=== PATIENT | female | born 1955 | race Caucasian/White ===

== ENCOUNTER 2017-03-27 11:45 | Inpatient (IN) ==
[2017-03-27] MEDS ORDERED: DILTIAZEM 25 MG/5 ML VIAL IV ONE ×2 (11:49→11:56)
[2017-03-27] MEDS ORDERED: DILTIAZEM 125 MG/25 ML VIAL IV ONE (11:56)
[2017-03-27] MEDS ORDERED: DILTIAZEM 125 MG in 0.9 % SODIUM CHLORIDE 100 ML IV SCH (12:00)
[2017-03-27] MEDS ORDERED: ASPIRIN 81 MG TAB.CHEW CHEWED ONE (12:02)
--- NOTE | 2017-03-27 12:16 | Emergency Department Note ---
Chest Pain HPI - General Source: patient Mode of arrival: ambulatory Limitations: no limitations - History of Present Illness MD complaint: chest pain Onset (ago): hour(s) Duration: constant Onset: during rest, during exertion Pain Location: substernal Severity: moderate, severe Severity scale (1-10): 8 Quality: tightness Pain Radiation: jaw/teeth Improves with: nothing Worsens with: nothing Associated symptoms: Denies: fever, leg swelling <Trevon Karimi - Last Filed: 03/27/17 12:10> <Nura Chatterjee - Last Filed: 03/27/17 19:24> - General Chief Complaint: Chest Pain Stated Complaint: Chest pain, shortness of breath Time Seen by Provider: 03/27/17 11:48 - History of Present Illness HPI Narrative: This is a 62 year old female that is coming into the ER coming in for chest pain today which started at about 10, constant, sharp.. Described it as 8-9/10 sharp, constant upon initial visit. Patient had just finish dialysis and was urged to come into the ER by the staff. States felt crappy and just not well, somewhat short of breath, but mostly sharp chest pain. Describes sharp pain radiating to jaw and teeth. denies any headache or loss of vision at this time. Known history includes hypertension which she is being treated with blood pressure medication, carvedilol and diltiazam. Past history also includes a hx of pericarditis. PCP is Jazmyn Lindsay. Denies any known history of CHF, CAD, or chronic hear disease, diabetes. Does have kidney failure. Recent surgery within the last year includes a surgery to repair a fistula she had back in September. Other pertinent hx does include a previous lobectomy and completed tx regimen with Dr. Barton. (Trevon Karimi) - Related Data Home Medications Medication Instructions Recorded Confirmed oxycodone 5 mg tablet 20 mg PO Q4H PRN 03/22/16 03/27/17 Previous Rx's Medication Instructions Recorded diltiazem CD 180 mg 180 mg PO BID #180 cap 06/19/16 capsule,extended release 24 hr carvedilol 6.25 mg tablet 6.25 mg PO BID 90 Days #180 tab 08/09/16 torsemide 20 mg tablet 40 mg PO QDAY #60 tab 09/06/16 calcium acetate 667 mg capsule 2,001 mg PO TID 30 Days #270 cap 10/17/16 lidocaine-prilocaine 2.5 %-2.5 % 1 g TOPICAL ONCE #30 g 03/01/17 topical cream vitamin B complex with C-folic 1 tab PO QDAY #90 tab 03/02/17 acid 0.8 mg-zinc citrate 15 mg tablet gabapentin 100 mg capsule 100 mg PO QHS #30 cap 03/27/17 Allergies Allergy/AdvReac Type Severity Reaction Status Date / Time HANH Inhibitors Allergy Unknown dry Verified 03/27/17 11:52 nostrils, throat tickle latex Allergy Unknown unknown Verified 03/27/17 11:52 Sulfa (Sulfonamide Allergy Unknown unknown Verified 03/27/17 11:52 Antibiotics) Chest Pain PMH - Social History smoking status: Former smoker <Trevon Karimi - Last Filed: 03/27/17 12:10> Physical Exam - General Limitations: no limitations General appearance: alert, anxious, in distress - Head Head exam: atraumatic, normocephalic - Eye Eye exam: Present: normal appearance, PERRL, EOMI - Chest Chest inspection: Present: normal inspection, symmetric chest wall rise - Respiratory Respiratory exam: Present: normal lung sounds bilaterally, respiratory distress , other (noticeable tachypnea) - Cardiovascular Cardiovascular exam: Present: irregular rhythm, other (tachycardia consistent with a-fib) <Trevon Karimi - Last Filed: 03/27/17 12:10> Course <Trevon Karimi - Last Filed: 03/27/17 12:10> <Nura Chatterjee - Last Filed: 03/27/17 19:24> - Reevaluation(s) Reevaluation #1: Patient's heart rate slightly improved with diltiazem drip and IV bolus. At this point her pain is improving, we will monitor and check cardiac enzymes, discussed and seen with our medical student. (Nura Chatterjee) Reevaluation #2: Patient's EKG reverted back to normal. She was pain-free. I recommended hospitalization. Our hospital doctor wanted to get another troponin. We will transfer at this point as she does need to see a quality internship and does not and not need to spend another 4 hours in the emergency department. (Nura Chatterjee) Vital Signs Temperature 99.5 F H 03/27/17 11:46 Pulse Rate 149 H 03/27/17 11:46 Respiratory Rate 18 03/27/17 11:46 Blood Pressure 177/86 03/27/17 11:46 Pulse Oximetry (%) 99 03/27/17 11:46 Temperature 99.5 F H 03/27/17 11:46 Pulse Rate 74 03/27/17 18:46 Respiratory Rate 22 03/27/17 18:46 Blood Pressure 150/56 03/27/17 18:46 Pulse Oximetry (%) 99 03/27/17 18:46 Chest Pain <Trevon Karimi - Last Filed: 03/27/17 12:10> - Lab Data Result diagrams: 03/27/17 12:18 03/27/17 12:18 <Nura Chatterjee - Last Filed: 03/27/17 19:24> - MDM Narrative Medical decision making narrative: troponin remained negative2. She converted to normal sinus rh Will be watched in the hospital, monitored bed. Final diagnosis is atrial fibrill with RVR (Nura Chatterjee) - Lab Data Lab Results 03/27/17 03/27/17 03/27/17 Range/Units 12:18 12:18 12:18 WBC 12.7 H (4.5-11.0) K/mcL RBC 2.56 L (4.00-5.20) M/mcL Hgb 8.7 L (12.0-15.0) g/dL Hct 25.1 L (36.0-48.0) % MCV 98.1 (80.0-100.0) fL MCH 33.9 (26.0-34.0) pg MCHC 34.5 (31.0-36.0) g/dL RDW 18.5 H (11.5-14.5) % Plt Count 411 (140-440) K/mcL MPV 7.1 L (7.4-10.4) fL Gran % 73.9 (38.0-78.0) % Lymph % (Auto) 16.5 (15.5-49.0) % [place] % (Auto) 6.6 (1.0-12.0) % Eos % (Auto) 2.7 (0.0-7.0) % Baso % (Auto) 0.3 (0.0-2.0) % Gran # 9.4 H (1.8-8.0) K/mcL Lymph # (Auto) 2.1 (1.5-4.8) K/mcL [place] # (Auto) 0.8 (0.1-0.9) K/mcL Eos # (Auto) 0.3 (0.0-0.7) K/mcL Baso # (Auto) 0 (0.0-0.3) K/mcL Sodium 137 (133-145) mmol/L Potassium 3.3 (3.3-5.1) mmol/L Chloride 91 L (96-108) mmol/L Carbon Dioxide 32 H (22-30) mmol/L Anion Gap 14.0 (8-16) BUN 28 H (8-23) mg/dl Creatinine 3.1 H (0.6-1.1) mg/dl GFR Calculation 15 Glucose 115 H (70-105) mg/dL Calcium 9.4 (8.6-10.4) mg/dl Total Bilirubin 0.5 (0.0-1.0) mg/dL AST 78 H (0-37) U/l ALT 122 H (0-40) U/l Alkaline Phosphatase 157 H (39-117) U/L Total Creatine Kinase 38 (24-170) IU/L CK-MB (CK-2) < 1.0 (0-2.9) ng/ml Troponin T 0.02 (0-0.03) ng/ml NT-Pro-B Natriuret Pep 2916.0 H (0-125) pg/ml Total Protein 7.7 (5.9-8.4) gm/dL Albumin 4.0 (3.2-5.2) gm/dL Globulin 3.7 (2.2-3.7) gm/dL Albumin/Globulin Ratio 1.1 (1.0-2.3) 03/27/17 03/27/17 Range/Units 15:29 18:06 WBC (4.5-11.0) K/mcL RBC (4.00-5.20) M/mcL Hgb (12.0-15.0) g/dL Hct (36.0-48.0) % MCV (80.0-100.0) fL MCH (26.0-34.0) pg MCHC (31.0-36.0) g/dL RDW (11.5-14.5) % Plt Count (140-440) K/mcL MPV (7.4-10.4) fL Gran % (38.0-78.0) % Lymph % (Auto) (15.5-49.0) % [place] % (Auto) (1.0-12.0) % Eos % (Auto) (0.0-7.0) % Baso % (Auto) (0.0-2.0) % Gran # (1.8-8.0) K/mcL Lymph # (Auto) (1.5-4.8) K/mcL [place] # (Auto) (0.1-0.9) K/mcL Eos # (Auto) (0.0-0.7) K/mcL Baso # (Auto) (0.0-0.3) K/mcL Sodium (133-145) mmol/L Potassium (3.3-5.1) mmol/L Chloride (96-108) mmol/L Carbon Dioxide (22-30) mmol/L Anion Gap (8-16) BUN (8-23) mg/dl Creatinine (0.6-1.1) mg/dl GFR Calculation Glucose (70-105) mg/dL Calcium (8.6-10.4) mg/dl Total Bilirubin (0.0-1.0) mg/dL AST (0-37) U/l ALT (0-40) U/l Alkaline Phosphatase (39-117) U/L Total Creatine Kinase (24-170) IU/L CK-MB (CK-2) (0-2.9) ng/ml Troponin T 0.02 0.02 (0-0.03) ng/ml NT-Pro-B Natriuret Pep (0-125) pg/ml Total Protein (5.9-8.4) gm/dL Albumin (3.2-5.2) gm/dL Globulin (2.2-3.7) gm/dL Albumin/Globulin Ratio (1.0-2.3) Disposition Pt seen by SCRAP SHEAR OPERATOR/PA only: No <Trevon Karimi - Last Filed: 03/27/17 12:10> Pt seen by SCRAP SHEAR OPERATOR/PA only: No <Nura Chatterjee - Last Filed: 03/27/17 19:24> Clinical Impression: A-fib Qualifiers: Atrial fibrillation type: unspecified Qualified Code(s): I48.91 - Unspecified atrial fibrillation Summary: 1.) Patient is a 62 year old female. EKG findings and clinical presentation are consistent with Atrial fibrillation. Likely transient in nature due to the given nature she has no known medical history of chronic atrial fibrilation, chronic heart disease, CAD, or hear failure. A.) B.) Order LR fluid C.) Order Diltiazam now. Atrium is depolarized by calcium so we will give diltiazem injection through IV port and than place her on a Diltiazam drip until her heart rhythm stabilizes and returns to normal. D.) Order CBC R/O any underlying infection. E.) Order CMP F.) Order Troponin to r/o MD G.) Order echocardiogram. H.) Order BNP to r/o Heart Failure I.) Order Morphine IV for pain control. I.) Before leaving repeat EKG. Patient now describes sharp pain as 6/10. Will monitor carefully. J.) Not suspecting a PE or DVT so at this present moment will not consider a CTangiongram, D dimer, or doppler U/S however if there are any changes with a drop in O2 saturation and increased respiratory distress will follow up as appropriate. 2.) Hypertension A.) Will monitor carefully here while she is in he ER but will need to follow with PCP. First so that she receives info of her ER visit today and second to continue coordination of care. 3.) Kidney failure A.) Continue going to dialysis per advisement of her PCP and coordinating specialist. (Trevon Karimi) Disposition: Xfer As Outpt/Obs ([facility]) Condition: Fair Referrals: Jazmyn Lindsay MD [Primary Care Provider] -
[2017-03-27 12:39] LABS: Basophils # (Auto) 0 K/mcL (0.0-0.3); Basophils % (Auto) 0.3 % (0.0-2.0); Eosinophils # (Auto) 0.3 K/mcL (0.0-0.7); Eosinophils % (Auto) 2.7 % (0.0-7.0); Granulocytes % (Auto) 73.9 % (38.0-78.0); Lymphocytes # (Auto) 2.1 K/mcL (1.5-4.8); Lymphocytes % (Auto) 16.5 % (15.5-49.0); Mean Cell Volume 98.1 fL (80.0-100.0); Mean Corpuscular HGB Conc 34.5 g/dL (31.0-36.0); Mean Corpuscular Hemoglobin 33.9 pg (26.0-34.0); Monocytes # (Auto) 0.8 K/mcL (0.1-0.9); Monocytes % (Auto) 6.6 % (1.0-12.0); Platelet Count 411 K/mcL (140-440); RBC 2.56 M/mcL (4.00-5.20); Red Cell Distribution Width 18.5 % (11.5-14.5)
--- NOTE | 2017-03-27 12:58 | XRay Report ---
HISTORY: Reason for Exam: Pain across the chest following dialysis with shortness of breath FINDINGS: There is opacification at the right lung base due to a combination of pleural thickening/pleural effusion and atelectasis/scar. This is a chronic finding with no change since 11/09/16. No acute infiltrate has developed. The heart is moderately enlarged and has increased in size since 01-18. The pulmonary vessels are mildly prominent. IMPRESSION: Increasing cardiomegaly with mild pulmonary vascular congestion Interpreted and Authenticated by: Coleman Serraon 03/27/17
[2017-03-27 13:09] LABS: ALT/SGPT 122 U/l (0-40); Albumin/Globulin Ratio 1.1 (1.0-2.3); Alkaline Phosphatase 157 U/L (39-117); Blood Urea Nitrogen 28 mg/dl (8-23); Creatine Kinase 38 IU/L (24-170); Creatine Kinase MB < 1.0 ng/ml (0-2.9)
[2017-03-27] MEDS ORDERED: DIGOXIN 500 MCG/2 ML AMPUL IV ONE ×3 (13:13→14:07)
[2017-03-27] MEDS ORDERED: 0.9 % SODIUM CHLORIDE 1,000 ML IV SCH (13:30)
[2017-03-27] MEDS ORDERED: DILTIAZEM 120 MG CAP.XL.24H PO ONE (15:22)
--- NOTE | 2017-03-27 20:21 | Internal Med History&Physical ---
Medical - H&P: HPI Patient information: Note initiated : 03/27/17 at 8:15 pm Service Date, if different from initiated Date: [] Patient: Stefany Chew a 62 y/o F admitted on for Chest Pain, SOB. Chief Complaint: [] History of present illness: Ms. Chew is a 62 year old Female with h/o esrd, on hd, and htn with multple other issues presents to the ER with complaints of chest pain and palpitations which started at the end of dialysis The patient noted she had moderate chest pain in the upper part of her chest, radiating to both shoulders and jaws, lasted 30 mins, non related to activity, sharp, associated with palpitations, nausea, and some dizziness. She notes that the dailysis nurse noted her to be very tachycardic and was therefore sent to the ER for further evaluation. The patient notse that her chest pain resolved after coming to the ER In the ER she was noted to be tachycardic, and having new onset afib with RVR. The patient was given cardizem and digoxin, and later placed on a cardizem drip to help with rate control The patient returned spontaneously to sinus rhythm later and is off drip during my eval Patient has mildly elevated wbc, hb 8.7, plat 411 she had trop x 3 negative. X ray shwos cardiomegaly and mild pulm congestion EKG afib with rvr on presentation, later showes sinus rhytym, ? q waves, non sp st wave changes in inf and lateral leas, no old ekg to compare The patient given h/o esrd and new onset Afib was admitted to the hospiotal for further management. All systems: reviewed and no additional remarkable complaints except as stated ( as per hpi) Medical - H&P: PMH Medical history: Medical History A-fib (Acute) Osteoarthritis (Chronic) Microscopic hematuria (Chronic) Pericarditis (Chronic) Diverticulitis of colon (Chronic) Cardiac disorder (Chronic) Depression (Chronic) History of blood transfusion (Chronic) Backache (Chronic) Hepatitis B infection (Chronic) Allergic rhinitis (Chronic) Anemia (Chronic) Chronic hepatitis C (Chronic) Hypertension (Chronic) Hyperlipidemia (Chronic) Vitamin D deficiency (Chronic) Leg cramps (Chronic) Acute sinusitis (Chronic) Arthritis (Chronic) Blood loss anemia (Chronic) Cervicalgia (Chronic) Chest pain (Chronic) Chronic obstructive pulmonary disease (Chronic) Acute stress reaction (Chronic) Essential (primary) hypertension (Chronic) 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) Decreased renal function (Chronic) Viral hepatitis C without hepatic coma (Chronic) Lower abdominal pain (Chronic) Nostril infection (Chronic) Pain (Chronic) Pain in right hip (Chronic) Postmenopausal (Chronic) Right lower quadrant pain (Chronic) Sciatica (Chronic) Shortness of breath (Chronic) Skin pustule (Chronic) Symptomatic anemia (Chronic) Thyroid enlargement (Chronic) Tiredness (Chronic) Tubular adenoma of colon (Chronic) Ventral hernia (Chronic) Vertigo (Chronic) Chronic kidney disease, stage 4 (severe) (Chronic) History of proctoscopy (Chronic) Surgical history: Past Surgical History Status post excision of thyroid adenoma (Chronic) History of D&C (Chronic) History of cholecystectomy (Chronic) History of colonoscopy (Chronic) History of cystoscopy (Chronic) History of decompression of median nerve (Chronic) History of fusion of cervical spine (Chronic) History of hysterectomy (Chronic) History of repair of rotator cuff (Chronic) History of thyroidectomy (Chronic) History of tonsillectomy and adenoidectomy (Chronic) Status post biopsy of kidney (Chronic) Family history: reviewed and not pertinent Social history: ex smoke [place] recreational substance use. Medical - H&P: Meds Home Medications Medication Instructions Recorded Confirmed Type oxycodone 5 mg tablet 20 mg PO Q4H PRN 03/22/16 03/27/17 History diltiazem CD 180 mg 180 mg PO BID #180 cap 06/19/16 03/27/17 Rx capsule,extended release 24 hr carvedilol 6.25 mg tablet 6.25 mg PO BID 90 Days #180 tab 08/09/16 03/27/17 Rx torsemide 20 mg tablet 40 mg PO QDAY #60 tab 09/06/16 03/27/17 Rx calcium acetate 667 mg capsule 2,001 mg PO TID 30 Days #270 cap 10/17/16 Rx lidocaine-prilocaine 2.5 %-2.5 % 1 g TOPICAL ONCE #30 g 03/01/17 03/27/17 Rx topical cream vitamin B complex with C-folic 1 tab PO QDAY #90 tab 03/02/17 Rx acid 0.8 mg-zinc citrate 15 mg tablet gabapentin 100 mg capsule 100 mg PO QHS #30 cap 03/27/17 03/27/17 Rx Allergies Allergy/AdvReac Type Severity Reaction Status Date / Time HANH Inhibitors Allergy Unknown dry Verified 03/27/17 11:52 nostrils, throat tickle latex Allergy Unknown unknown Verified 03/27/17 11:52 Sulfa (Sulfonamide Allergy Unknown unknown Verified 03/27/17 11:52 Antibiotics) Medical - H&P: Exam - Constitutional Vitals: Temp Pulse Resp BP Pulse Ox 99.5 F H 80 15 154/61 98 03/27/17 11:46 03/27/17 19:46 03/27/17 19:46 03/27/17 19:46 03/27/17 19:46 Exam: GENERAL: The patient is a well-developed, well-nourished in no apparent distress. Is alert and oriented x3. VITAL SIGNS: Reviewed and as noted elsewhere. HEENT: Head is normocephalic and atraumatic. Extraocular muscles are intact. Pupils are equal, round, and reactive to light. Nares appeared normal. Mouth appears any without lesions. Mucous membranes are moist. NECK: Normal to inspection, Supple, No lymphadenopathy or thyromegaly. LUNGS: Air entry equal on both sides, no wheezing, crackles or rhonchi noted. No accessory muscles of respiration HEART: Regular rate and rhythm normal, S1 and S2 heard, no Gallop, S3 or Rub Noted, No Gross murmur heard. ABDOMEN: Soft, nontender, and nondistended. Positive bowel sounds. No hepatosplenomegaly was noted. EXTREMITIES: No cyanosis, clubbing, rash, lesions or edema. NEUROLOGIC: Cranial nerves II through XII are grossly intact. Motor and Sensory System Grossly Intact PSYCHIATRIC: Normal affect, Normal Mood. Appropriate Behavior. SKIN: No ulceration or wounds noted, No jaundice, No rash noted. Medical - H&P: Reslt - Labs CBC & Chem 7: 03/27/17 12:18 03/27/17 12:18 Labs: Short CBC 03/27/17 Range/Units 12:18 WBC 12.7 H (4.5-11.0) K/mcL Hgb 8.7 L (12.0-15.0) g/dL Hct 25.1 L (36.0-48.0) % Plt Count 411 (140-440) K/mcL BMP 03/27/17 12:18 Sodium 137 Potassium 3.3 Chloride 91 L Carbon Dioxide 32 H BUN 28 H Creatinine 3.1 H Glucose 115 H Calcium 9.4 Cardiac Enzymes 03/27/17 03/27/17 03/27/17 Range/Units 12:18 12:18 15:29 Total Creatine Kinase 38 (24-170) IU/L CK-MB (CK-2) < 1.0 (0-2.9) ng/ml Troponin T 0.02 0.02 (0-0.03) ng/ml 03/27/17 Range/Units 18:06 Total Creatine Kinase (24-170) IU/L CK-MB (CK-2) (0-2.9) ng/ml Troponin T 0.02 (0-0.03) ng/ml Liver Function 03/27/17 Range/Units 12:18 Total Bilirubin 0.5 (0.0-1.0) mg/dL AST 78 H (0-37) U/l ALT 122 H (0-40) U/l Alkaline Phosphatase 157 H (39-117) U/L Albumin 4.0 (3.2-5.2) gm/dL Medical - H&P: A/P - Narrative A/P Narrative: A/P Afib with RVR, ESRd HTN h/o thyroid issues Chr pain issue leucocytosis Plan Admit to tele Check ua to r/o UTI check tsh, INR patient notes she has had 3 such episodes int he past, her CHADSVASC2 score is 2 , she will benefit from coumadin therapy discussed risk benefits of coumadin treatment. including risk of bleeding in brain and stomach and ,patient and her son agreed to treatment. Discussed need for coumadin given that newer drugs like eliquis do not yet have good data on safety in ESRD patients. monitor hb for now for rate control dora is already on a dilatazem as well as coreg, seems she has h/o SVT in the past and has followed up by cardiology Will increase the dose of coreg from 6.25 mg bid to 12.5mg bid, she will continue on cardizem 180mg bid. get echo DVT hep sq Diet renal Full code Anticpate D/c in AM if remains stable with close follow up with PCP.
[2017-03-27] MEDS ORDERED: WARFARIN 5 MG TABLET PO SCH (21:11)
[2017-03-27] MEDS ORDERED: NALOXONE HCL 0.4 MG/ML VIAL IV PRN (21:11)
[2017-03-27] MEDS ORDERED: MAGNESIUM HYDROXIDE 30 ML ORAL.SUSP PO PRN (21:11)
[2017-03-27] MEDS ORDERED: ONDANSETRON 4 MG/2 ML VIAL IV PRN (21:11)
[2017-03-27] MEDS ORDERED: ACETAMINOPHEN 325 MG TABLET PO PRN (21:11)
[2017-03-27] MEDS ORDERED: HYDROcodone/APAP 5/325MG TABLET PO PRN (21:11)
[2017-03-27] MEDS ORDERED: oxyCODONE HCL 5 MG TABLET PO PRN (21:11)
[2017-03-27] MEDS: GABAPENTIN 100 MG CAPSULE PO SCH (22:18)
[2017-03-27] MEDS: HEPARIN 5,000 UNIT/ML VIAL SQ SCH (22:18)
[2017-03-27] MEDS: DILTIAZEM 180 MG CAP.XL.24H PO SCH (22:18)
[2017-03-27] MEDS: CARVEDILOL 12.5 MG TABLET PO SCH (22:18)
[2017-03-28 05:28] LABS: Basophils # (Auto) 0 K/mcL (0.0-0.3); Basophils % (Auto) 0.5 % (0.0-2.0); Eosinophils # (Auto) 0.2 K/mcL (0.0-0.7); Eosinophils % (Auto) 2.9 % (0.0-7.0); Granulocytes % (Auto) 69.9 % (38.0-78.0); Lymphocytes # (Auto) 0.9 K/mcL (1.5-4.8); Lymphocytes % (Auto) 15.9 % (15.5-49.0); Mean Cell Volume 98.2 fL (80.0-100.0); Mean Corpuscular HGB Conc 34.3 g/dL (31.0-36.0); Mean Corpuscular Hemoglobin 33.7 pg (26.0-34.0); Monocytes # (Auto) 0.6 K/mcL (0.1-0.9); Monocytes % (Auto) 10.8 % (1.0-12.0); Platelet Count 303 K/mcL (140-440); RBC 1.98 M/mcL (4.00-5.20); Red Cell Distribution Width 18.4 % (11.5-14.5)
[2017-03-28 05:47] LABS: ALT/SGPT 218 U/l (0-40); Albumin 3.1 gm/dL (3.2-5.2); Alkaline Phosphatase 365 U/L (39-117); Bilirubin,Direct < 0.2 mg/dL (0.0-0.3); Blood Urea Nitrogen 46 mg/dl (8-23); Gamma Glutamyl Transpeptidase 198 U/L (5-36); Uric Acid 3.9 mg/dL (2.5-8.0)
[2017-03-28] MEDS: HEPARIN 5,000 UNIT/ML VIAL SQ SCH ×3 (05:50→21:06)
[2017-03-28] MEDS ORDERED: 0.9 % SODIUM CHLORIDE 250 ML IV SCH ×2 (06:15→07:30)
--- NOTE | 2017-03-28 08:15 | Ultrasound Report ---
History: Elevated liver enzymes Findings: The liver is normal in size and homogeneous. The gallbladder surgically absent. The extrahepatic bile ducts are severely dilated. The distal common hepatic duct measures up to 2 cm. It measured 1.5 cm on 11/29/16. There is no apparent mass or stone in the distal common bile duct. Intrahepatic ducts are borderline dilated. The visualized portions of the pancreas appear normal without evidence of a mass or inflammation. The pancreatic duct is nondistended. Small right-sided pleural effusion is present. This is a chronic stable finding. Impression: Increasing dilatation of the extrahepatic bile ducts. There may be a stricture at the ampulla. This could be further evaluated by ERCP. Interpreted and Authenticated by: Coleman Serrano 03/28/17
[2017-03-28] MEDS: TORSEMIDE 10 MG TABLET PO SCH (08:17)
[2017-03-28] MEDS: DILTIAZEM 180 MG CAP.XL.24H PO SCH ×2 (08:17→21:06)
[2017-03-28] MEDS: CARVEDILOL 12.5 MG TABLET PO SCH ×2 (08:18→21:06)
[2017-03-28] MEDS ORDERED: PNEUMOCOCCAL 23-VAL P-SAC VAC 0.5 ML VIAL IM ONE (10:00)
[2017-03-28 11:03] LABS: Iron 50 mcg/dl (37-145); Transferrin % Saturation 31 % (15-50); Unsaturated Iron Binding 107 mcg/dL (112-346)
[2017-03-28 11:04] LABS: Vitamin B12 1006 pg/ml (243-894)
[2017-03-28 11:04] LABS: Appearance,Urine CLEAR; Bacteria,Urine 0 /hpf (0); Bilirubin,Urine NEG (NEG); Color,Urine YELLOW; Glucose,Urine (UA) NEGATIVE (NEG); Leukocyte Esterase,Urine NEG /uL (NEG); Nitrate,Urine NEG (NEG); Protein,Urine 100 mg/dL (NEG); Specific Gravity,Urine 1.008 (1.000-1.035); Urine Blood 0.2 mg/dL (<0.03); Urine RBC 3 /hpf (0-1); Urine Squamous Epithelial Cell < 1 /hpf (0-4); Urine WBC 3 /hpf (0-4); Urobilinogen,Urine NEG (NEG)
--- NOTE | 2017-03-28 16:38 | Nephrology Consult Note ---
History of Present Illness - Reason for Consult Patient information: Note initiated : 03/28/17 at 4:36 pm Service Date, if different from initiated Date: [] Patient: Stefany Chew a 62 y/o F admitted on 03/27/17 for Chest Pain, SOB/AFib with RVR. Chief Complaint: [] Consult date: 03/27/17 end stage renal disease Requesting physician: Nura Chatterjee - Chief Complaint palpitations - History of Present Illness Ms Jeevan is my dialysis patient she was sent yesterday after dialysis for palpitations and abnormal heart rhythm she was noted to have new onset Afib and she is been hospitalised for the same, IL ruled out with negative troponin She is noted to have severe anemia (she cannot get aranesp given h/o non small cell lung cancer as recommended by oncology). She also has abnormal liver enzymes and mild fever and this is been addressed she denies SOB, CP, has persistent left shoulder pain radiating to jaw no LE edema no nausea, vomiting anxious to go home Review of Systems All systems PM: reviewed and no additional remarkable complaints except as stated (as in HPI) Past History Past medical history: ESRD on HD anemia of chronic disease renal osteodystrophy Hep c s/p treatment lung cancer s/p lobectomy and chemotherapy h/o papillary stricture s?p recent E bus Hypertension Past surgical history: h/o lobectomy for lung cancer this year h/o AVF surgery had TCC which has been removed Past family history: not pertinent Past social history: lives alone, daughter lives in town no current addictions Medications and Allergies Home Medications Medication Instructions Recorded Confirmed Type oxycodone 5 mg tablet 20 mg PO Q4H PRN 03/22/16 03/27/17 History diltiazem CD 180 mg 180 mg PO BID #180 cap 06/19/16 03/27/17 Rx capsule,extended release 24 hr carvedilol 6.25 mg tablet 6.25 mg PO BID 90 Days #180 tab 08/09/16 03/27/17 Rx torsemide 20 mg tablet 40 mg PO QDAY #60 tab 09/06/16 03/27/17 Rx calcium acetate 667 mg capsule 2,001 mg PO TID 30 Days #270 cap 10/17/16 Rx lidocaine-prilocaine 2.5 %-2.5 % 1 g TOPICAL ONCE #30 g 03/01/17 03/27/17 Rx topical cream vitamin B complex with C-folic 1 tab PO QDAY #90 tab 03/02/17 Rx acid 0.8 mg-zinc citrate 15 mg tablet gabapentin 100 mg capsule 100 mg PO QHS #30 cap 03/27/17 03/27/17 Rx Allergies Allergy/AdvReac Type Severity Reaction Status Date / Time HANH Inhibitors Allergy Unknown dry Verified 03/27/17 11:52 nostrils, throat tickle latex Allergy Unknown unknown Verified 03/27/17 11:52 Sulfa (Sulfonamide Allergy Unknown unknown Verified 03/27/17 11:52 Antibiotics) Exam - Vital Signs Vital signs: Temp Pulse Resp BP Pulse Ox 98.1 F 69 20 138/51 97 03/28/17 12:00 03/28/17 12:00 03/28/17 12:00 03/28/17 12:00 03/28/17 12:00 - General Appearance General appearance: appears started age, obese EENT: mucous membranes moist Neck: no JVD Respiratory: clear Cardiology: no rub, no edema, normal S1, normal S2 Gastrointestinal: no tenderness, no guarding Integumentary: warm and dry Neurologic: no asterixis, alert and oriented x3 Musculoskeletal: no erythema, no cyanosis Psychiatric: mood/affect appropriate Results - Lab Results 03/28/17 06:12 03/28/17 03:44 Most recent lab results Calcium 8.5 mg/dl (8.6-10.4) L 03/28/17 03:44 Phosphorus 5.1 mg/dL (2.7-4.5) H 03/28/17 03:44 Magnesium 2.0 mg/dL (1.6-2.5) 03/28/17 03:44 Assessment and Plan (1) ESRD (end stage renal disease) on dialysis Patient planned to get 2 units of prbc transfusion today will dialyse to prevent volume overload and hyperkalemia given her CXR findings will hold off on HD tomorrow unless needed HD today for 3.5 hrs using 2k/2.5ca dialysate and UF goal of 1.5-2L as tolerated next HD on sat unless needed/indicated please dose meds to HD HTN: controlled will ct home meds Anemia prbc transfusion today work up done, no iron deficiency or b12 deficiency abnormal liver enzymes: been monitored and managed by hospitalist, discussed with GI in [place], recommendation was to transfer for ercp if liver enzymes continue to worsen, discussed witht he pt new onset Afib, echo result pending will need anticoagulation Appreciate hospitalist help in managing this patient Status: Acute (2) Anemia Status: Chronic
--- NOTE | 2017-03-28 17:51 | Internal Med Progress Note ---
Medical - PN: Subj Patient information: Note initiated : 03/28/17 at 5:47 pm Service Date, if different from initiated Date: [] Patient: Stefany Chew a 62 y/o F admitted on 03/27/17 for Chest Pain, SOB/AFib with RVR. Chief Complaint: [] Interval history: Ms. Chew is a 62 year old Female with h/o esrd, on hd, and htn with multple other issues presents to the ER with complaints of chest pain and palpitations which started at the end of dialysis The patient noted she had moderate chest pain in the upper part of her chest, radiating to both shoulders and jaws, lasted 30 mins, non related to activity, sharp, associated with palpitations, nausea, and some dizziness. She notes that the dailysis nurse noted her to be very tachycardic and was therefore sent to the ER for further evaluation. The patient notse that her chest pain resolved after coming to the ER In the ER she was noted to be tachycardic, and having new onset afib with RVR. The patient was given cardizem and digoxin, and later placed on a cardizem drip to help with rate control The patient returned spontaneously to sinus rhythm later and is off drip during my eval Patient has mildly elevated wbc, hb 8.7, plat 411 she had trop x 3 negative. X ray shwos cardiomegaly and mild pulm congestion EKG afib with rvr on presentation, later showes sinus rhytym, ? q waves, non sp st wave changes in inf and lateral leas, no old ekg to compare The patient given h/o esrd and new onset Afib was admitted to the hospiotal for further management. March 28 Patient seen examined low hb noted,, elevated lft worsened since yesterday noted Patient has no acute complaints UA neg for infection no temp today, but procalcitoni is mildly elevated Patient has no gi symptoms at present Discussed case with Dr Callejas, GI physician in [place], who had performed a recent EGD scopy who advise to follow the patient lft, recent EBS did not show any tumor or lesion. and patient hepatic duct and cbd diameters are much changed since that time. advised to follow clinically and if needed call him again. patient to get 2 units of prbc today, hemodialysis also scheduled for today. Pertinent ROS: Denies headache, dizziness Denies chest pain, palpitations Denies cough or shortness of breath Denies abdominal pain, nausea or vomiting. - Constitutional Vitals: Vital Signs Temp Pulse Resp BP Pulse Ox 98.3 F 61 18 143/59 98 03/28/17 16:52 03/28/17 16:52 03/28/17 16:00 03/28/17 16:52 03/28/17 16:00 Period Temp Pulse Resp BP Sys/Reid Pulse Ox Last 24 Hr 98.1 F-100.4 F 61-111 15-27 118-159/42-71 82-100 Intake and Output 03/28/17 03/28/17 03/28/17 05:59 13:59 21:59 Intake Total 100 / 100 400 / 400 Output Total 300 / 300 Balance 100 / 100 100 / 100 Intake & Output: Intake & Output 03/28/17 03/28/17 03/28/17 05:59 13:59 21:59 Intake Total 100 / 100 400 / 400 Output Total 300 / 300 Balance 100 / 100 100 / 100 Intake: Oral 100 / 100 400 / 400 Output: Void Amount 300 / 300 Other: # Voids 1 Exam: Constitutional; Afebrile, cooperative, alert, not in distress. Eyes- No icterus, , No periorbital swelling Ears- Ext ear normal, hearing normal to conversation. Neck- Midline trachea, supple Respiratory system: Air Entry equal on both sides, No crackles or wheezing, no rhonchi. CVS- Rate rhythm regular, S1,S2 heard, no gallop, no rub. 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 Medical - PN: Obj Da - Labs CBC & Chem 7: 03/28/17 06:12 03/28/17 03:44 Labs: Abnormal Lab Results 03/28/17 03/28/17 03/28/17 06:48 06:12 06:12 WBC RBC Hgb 7.1 L Hct 20.7 L* RDW MPV Gran # Lymph # (Auto) PT INR Chloride Carbon Dioxide BUN Creatinine Glucose Calcium Phosphorus TIBC 157 L Unsat Iron Binding 107 L Ferritin 5974.0 H GGT AST ALT Alkaline Phosphatase Lactate Dehydrogenase NT-Pro-B Natriuret Pep Albumin Vitamin B12 1006 H Urine Protein 100 A Urine Occult Blood 0.2 A Urine RBC 3 H 03/28/17 03/28/17 03/28/17 03:44 03:44 03:44 WBC RBC 1.98 L Hgb 6.7 L* Hct 19.4 L* RDW 18.4 H MPV 7.2 L Gran # Lymph # (Auto) 0.9 L PT 15.1 H INR 1.2 H Chloride 94 L Carbon Dioxide BUN 46 H Creatinine 4.9 H Glucose Calcium 8.5 L Phosphorus 5.1 H TIBC Unsat Iron Binding Ferritin GGT 198 H AST 269 H ALT 218 H Alkaline Phosphatase 365 H Lactate Dehydrogenase 488 H NT-Pro-B Natriuret Pep Albumin 3.1 L Vitamin B12 Urine Protein Urine Occult Blood Urine RBC 03/27/17 03/27/17 12:18 12:18 WBC 12.7 H RBC 2.56 L Hgb 8.7 L Hct 25.1 L RDW 18.5 H MPV 7.1 L Gran # 9.4 H Lymph # (Auto) PT INR Chloride 91 L Carbon Dioxide 32 H BUN 28 H Creatinine 3.1 H Glucose 115 H Calcium Phosphorus TIBC Unsat Iron Binding Ferritin GGT AST 78 H ALT 122 H Alkaline Phosphatase 157 H Lactate Dehydrogenase NT-Pro-B Natriuret Pep 2916.0 H Albumin Vitamin B12 Urine Protein Urine Occult Blood Urine RBC Meds: Medications Acetaminophen (Tylenol) 650 mg PO Q6HP PRN PRN Reason: PAIN/FEVER > 101 Hydrocodone Bitart/Acetaminophen ([place] 5/325mg) 1 tab PO Q4HP PRN PRN Reason: Pain Carvedilol (Coreg) 12.5 mg PO BIDCC [facility] Last Admin: 03/28/17 08:18 Dose: 12.5 mg Diltiazem HCl (Cardizem Cd) 180 mg PO BID [facility] Last Admin: 03/28/17 08:17 Dose: 180 mg Gabapentin (Neurontin) 100 mg PO QHS [facility] Last Admin: 03/27/17 22:18 Dose: 100 mg Heparin Sodium (Porcine) (Heparin) 5,000 unit SQ Q8 [facility] Last Admin: 03/28/17 14:25 Dose: 5,000 unit Sodium Chloride (Sodium Chloride 0.9%) 250 mls @ 20 mls/hr IV .[id number] [facility] Stop: 03/28/17 18:44 Sodium Chloride (Sodium Chloride 0.9%) 250 mls @ 20 mls/hr IV .[id number] [facility] Stop: 03/28/17 19:59 Magnesium Hydroxide (Milk Of Magnesia) 30 ml PO DAILYP PRN PRN Reason: Constipation Naloxone HCl (Narcan) 0.1 mg IV Q2MIN PRN PRN Reason: Opiate Reversal Ondansetron HCl (Zofran) 4 mg IV Q4HP PRN PRN Reason: Nausea And Vomiting Last Admin: 03/28/17 11:40 Dose: 4 mg Oxycodone HCl (Roxicodone) 20 mg PO Q4H PRN PRN Reason: Pain Torsemide (Demadex) 40 mg PO DAILY [facility] Last Admin: 03/28/17 08:17 Dose: 40 mg Medical - PN: A/P - Time Spent With Patient Total time spent is greater than 50% in coordination of care (as documented) at patient's floor/unit and/or counseling patient: - Narrative A/P Narrative: A/P Afib with RVR, ESRd HTN h/o thyroid issues Chr pain issue leucocytosis abnormal LFT anemia of chr disease, associated with esrd Plan monitor on tele, no further episodes of afib with rvr hold coumadin for now given that she may need ercp and pincterectomy neg ua for UTI monitor lvf tsh normal 2 units blood xfusion today, not candidate for epogen due to h/o lung cancer rate well controlled on oral meds. await echo read. DVT hep sq Diet renal Full code Anticpate D/c in AM if remains stable with close follow up with PCP.
[2017-03-28] MEDS: GABAPENTIN 100 MG CAPSULE PO SCH (21:06)
[2017-03-28] MEDS ORDERED: BISACODYL 5 MG TABLET PO PRN (22:21)
[2017-03-28] MEDS ORDERED: BISACODYL 5 MG TABLET PO ONE (23:08)
[2017-03-29] MEDS: HEPARIN 5,000 UNIT/ML VIAL SQ SCH ×3 (05:45→21:12)
[2017-03-29 06:07] LABS: Basophils # (Auto) 0 K/mcL (0.0-0.3); Basophils % (Auto) 0.7 % (0.0-2.0); Eosinophils # (Auto) 0.2 K/mcL (0.0-0.7); Eosinophils % (Auto) 3.9 % (0.0-7.0); Granulocytes % (Auto) 64.9 % (38.0-78.0); Lymphocytes # (Auto) 1.1 K/mcL (1.5-4.8); Lymphocytes % (Auto) 18.9 % (15.5-49.0); Mean Cell Volume 95.2 fL (80.0-100.0); Mean Corpuscular HGB Conc 35.2 g/dL (31.0-36.0); Mean Corpuscular Hemoglobin 33.5 pg (26.0-34.0); Monocytes # (Auto) 0.6 K/mcL (0.1-0.9); Monocytes % (Auto) 11.6 % (1.0-12.0); Platelet Count 337 K/mcL (140-440); Red Cell Distribution Width 18.7 % (11.5-14.5)
[2017-03-29 06:25] LABS: ALT/SGPT 138 U/l (0-40); Albumin 3.2 gm/dL (3.2-5.2); Albumin/Globulin Ratio 0.9 (1.0-2.3); Alkaline Phosphatase 316 U/L (39-117); Bilirubin,Direct < 0.2 mg/dL (0.0-0.3); Blood Urea Nitrogen 23 mg/dl (8-23); Gamma Glutamyl Transpeptidase 176 U/L (5-36); Magnesium 1.9 mg/dL (1.6-2.5); Uric Acid 2.7 mg/dL (2.5-8.0)
[2017-03-29] MEDS: CARVEDILOL 12.5 MG TABLET PO SCH ×2 (08:16→17:08)
--- NOTE | 2017-03-29 08:18 | XRay Report ---
HISTORY: Reason for Exam:shoulder pain FINDINGS: No fracture or dislocation. There is a cluster of small subcortical cysts with thin sclerotic borders along the superior/ lateral border of the humeral head, near the tuberosities. There is also a tiny spur along the top of the greater tuberosity. No other degenerative change is present. There are no abnormal soft tissue calcifications. The joint spaces are normal in width and alignment. Impression: Mild arthritis involving the humeral head Interpreted and Authenticated by: Coleman Serrano 03/29/17
[2017-03-29] MEDS: TORSEMIDE 10 MG TABLET PO SCH (09:01)
[2017-03-29] MEDS: DILTIAZEM 180 MG CAP.XL.24H PO SCH ×2 (09:01→21:12)
[2017-03-29] MEDS ORDERED: PNEUMOCOCCAL 23-VAL P-SAC VAC 0.5 ML VIAL IM ONE (09:45)
[2017-03-29] MEDS ORDERED: WARFARIN 5 MG TABLET PO SCH (14:00)
--- NOTE | 2017-03-29 14:09 | Internal Med Progress Note ---
Medical - PN: Subj Patient information: Note initiated : 03/29/17 at 2:07 pm Service Date, if different from initiated Date: [] Patient: Stefany Chew a 62 y/o F admitted on 03/27/17 for Chest Pain, SOB/AFib with RVR. Chief Complaint: [] Interval history: Ms. Chew is a 62 year old Female with h/o esrd, on hd, and htn with multple other issues presents to the ER with complaints of chest pain and palpitations which started at the end of dialysis The patient noted she had moderate chest pain in the upper part of her chest, radiating to both shoulders and jaws, lasted 30 mins, non related to activity, sharp, associated with palpitations, nausea, and some dizziness. She notes that the dailysis nurse noted her to be very tachycardic and was therefore sent to the ER for further evaluation. The patient notse that her chest pain resolved after coming to the ER In the ER she was noted to be tachycardic, and having new onset afib with RVR. The patient was given cardizem and digoxin, and later placed on a cardizem drip to help with rate control The patient returned spontaneously to sinus rhythm later and is off drip during my eval Patient has mildly elevated wbc, hb 8.7, plat 411 she had trop x 3 negative. X ray shwos cardiomegaly and mild pulm congestion EKG afib with rvr on presentation, later showes sinus rhytym, ? q waves, non sp st wave changes in inf and lateral leas, no old ekg to compare The patient given h/o esrd and new onset Afib was admitted to the hospiotal for further management. March 28 Patient seen examined low hb noted,, elevated lft worsened since yesterday noted Patient has no acute complaints UA neg for infection no temp today, but procalcitonin is mildly elevated Patient has no gi symptoms at present Discussed case with Dr Callejas, GI physician in [place], who had performed a recent EGD scopy who advise to follow the patient lft, recent EBS did not show any tumor or lesion. and patient hepatic duct and cbd diameters are much changed since that time. advised to follow clinically and if needed call him again. patient to get 2 units of prbc today, hemodialysis also scheduled for today. March 28 patient seen examined no acute overnight events some neck pain, going to the jaw but no other symptmos. trop x 2 neg on admission procalcitonin and lft trending down low grade fever noted patient otherwise asymptomatic, given her h/o lung cancer, now worsening lft, ( although better now) the patient will be monitored for 1 more day, to ensure no acute hepatobillary process is ongoing. if lft continue to trend down and patient reamins afebrile with no other issues, consider d/c to home in AM s/p hd yesterday, hb > 9.0 Pertinent ROS: Denies headache, dizziness Denies chest pain, palpitations (upper chest pain, jaw pain noted) Denies cough or shortness of breath Denies abdominal pain, nausea or vomiting. - Constitutional Vitals: Vital Signs Temp Pulse Resp BP Pulse Ox 97.6 F 74 14 130/64 97 03/29/17 12:00 03/29/17 04:00 03/29/17 12:00 03/29/17 12:00 03/29/17 12:00 Period Temp Pulse Resp BP Sys/Reid Pulse Ox Last 24 Hr 97.6 F-99.3 F 61-78 14-18 124-192/54-86 94-98 Intake and Output 03/29/17 03/29/17 03/29/17 05:59 13:59 21:59 Intake Total 425 / 425 Balance 425 / 425 Weight 188 lb 8 oz 188 lb 8 oz Patient Weight 03/30/17 05:59 Weight 188 lb 8 oz Intake & Output: Intake & Output 03/29/17 03/29/17 03/29/17 05:59 13:59 21:59 Intake Total 425 / 425 Balance 425 / 425 Weight 188 lb 8 oz 188 lb 8 oz Intake: Oral 425 / 425 Other: # Voids 1 Exam: Constitutional; Afebrile, cooperative, alert, not in distress. Eyes- No icterus, , No periorbital swelling Ears- Ext ear normal, hearing normal to conversation. Neck- Midline trachea, supple Respiratory system: Air Entry equal on both sides, No crackles or wheezing, no rhonchi. CVS- Rate rhythm regular, S1,S2 heard, no gallop, no rub. 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 Medical - PN: Obj Da - Labs CBC & Chem 7: 03/29/17 04:50 03/29/17 04:50 Labs: Abnormal Lab Results 03/29/17 03/29/17 03/28/17 04:50 04:50 06:48 WBC RBC 2.70 L Hgb 9.1 L Hct 25.7 L RDW 18.7 H MPV 7.0 L Gran # Lymph # (Auto) 1.1 L PT INR Chloride 93 L Carbon Dioxide 31 H BUN Creatinine 3.7 H Glucose Calcium Phosphorus TIBC Unsat Iron Binding Ferritin GGT 176 H AST 77 H ALT 138 H Alkaline Phosphatase 316 H Lactate Dehydrogenase 279 H NT-Pro-B Natriuret Pep Albumin Albumin/Globulin Ratio 0.9 L Vitamin B12 Urine Protein 100 A Urine Occult Blood 0.2 A Urine RBC 3 H 03/28/17 03/28/17 03/28/17 06:12 06:12 03:44 WBC RBC Hgb 7.1 L Hct 20.7 L* RDW MPV Gran # Lymph # (Auto) PT INR Chloride 94 L Carbon Dioxide BUN 46 H Creatinine 4.9 H Glucose Calcium 8.5 L Phosphorus 5.1 H TIBC 157 L Unsat Iron Binding 107 L Ferritin 5974.0 H GGT 198 H AST 269 H ALT 218 H Alkaline Phosphatase 365 H Lactate Dehydrogenase 488 H NT-Pro-B Natriuret Pep Albumin 3.1 L Albumin/Globulin Ratio Vitamin B12 1006 H Urine Protein Urine Occult Blood Urine RBC 03/28/17 03/28/17 03/27/17 03:44 03:44 12:18 WBC RBC 1.98 L Hgb 6.7 L* Hct 19.4 L* RDW 18.4 H MPV 7.2 L Gran # Lymph # (Auto) 0.9 L PT 15.1 H INR 1.2 H Chloride 91 L Carbon Dioxide 32 H BUN 28 H Creatinine 3.1 H Glucose 115 H Calcium Phosphorus TIBC Unsat Iron Binding Ferritin GGT AST 78 H ALT 122 H Alkaline Phosphatase 157 H Lactate Dehydrogenase NT-Pro-B Natriuret Pep 2916.0 H Albumin Albumin/Globulin Ratio Vitamin B12 Urine Protein Urine Occult Blood Urine RBC 03/27/17 12:18 WBC 12.7 H RBC 2.56 L Hgb 8.7 L Hct 25.1 L RDW 18.5 H MPV 7.1 L Gran # 9.4 H Lymph # (Auto) PT INR Chloride Carbon Dioxide BUN Creatinine Glucose Calcium Phosphorus TIBC Unsat Iron Binding Ferritin GGT AST ALT Alkaline Phosphatase Lactate Dehydrogenase NT-Pro-B Natriuret Pep Albumin Albumin/Globulin Ratio Vitamin B12 Urine Protein Urine Occult Blood Urine RBC Meds: Medications Acetaminophen (Tylenol) 650 mg PO Q6HP PRN PRN Reason: PAIN/FEVER > 101 Hydrocodone Bitart/Acetaminophen ([place] 5/325mg) 1 tab PO Q4HP PRN PRN Reason: Pain Bisacodyl (Dulcolax) 10 mg PO DAILYP PRN PRN Reason: Constipation Carvedilol (Coreg) 12.5 mg PO BIDCC [facility] Last Admin: 03/29/17 08:16 Dose: 12.5 mg Diltiazem HCl (Cardizem Cd) 180 mg PO BID [facility] Last Admin: 03/29/17 09:01 Dose: 180 mg Gabapentin (Neurontin) 100 mg PO QHS [facility] Last Admin: 03/28/17 21:06 Dose: 100 mg Heparin Sodium (Porcine) (Heparin) 5,000 unit SQ Q8 [facility] Last Admin: 03/29/17 05:45 Dose: 5,000 unit Magnesium Hydroxide (Milk Of Magnesia) 30 ml PO DAILYP PRN PRN Reason: Constipation Naloxone HCl (Narcan) 0.1 mg IV Q2MIN PRN PRN Reason: Opiate Reversal Ondansetron HCl (Zofran) 4 mg IV Q4HP PRN PRN Reason: Nausea And Vomiting Last Admin: 03/28/17 11:40 Dose: 4 mg Oxycodone HCl (Roxicodone) 20 mg PO Q4H PRN PRN Reason: Pain Torsemide (Demadex) 40 mg PO DAILY [facility] Last Admin: 03/29/17 09:01 Dose: 40 mg Medical - PN: A/P - Time Spent With Patient Total time spent is greater than 50% in coordination of care (as documented) at patient's floor/unit and/or counseling patient: - Narrative A/P Narrative: A/P Afib with RVR, now resolved. ESRd HTN h/o thyroid issues Chr pain issue leucocytosis abnormal LFT anemia of chr disease, associated with esrd Plan ok to monitor on med surg no recurrence of afib, treat with adjust ment of home meds and start on coumadin. as she is not likely to go to get ERCP neg ua for UTI monitor lvf tsh normal 2 units blood xfusion today, not candidate for epogen due to h/o lung cancer rate well controlled on oral meds. await echo read patient had low grade temp which is concerning given that she will not mount a full immune response to infection, in light of her elevated lft and no other source of infection, will monitor for additional day, DVT hep sq Diet renal Full code
[2017-03-29] MEDS ORDERED: ONDANSETRON 4 MG/2 ML VIAL IV PRN (14:31)
[2017-03-29] MEDS ORDERED: NALOXONE HCL 0.4 MG/ML VIAL IV PRN (14:31)
[2017-03-29] MEDS ORDERED: HYDROcodone/APAP 5/325MG TABLET PO PRN (14:31)
[2017-03-29] MEDS ORDERED: MAGNESIUM HYDROXIDE 30 ML ORAL.SUSP PO PRN (14:31)
[2017-03-29] MEDS ORDERED: ACETAMINOPHEN 325 MG TABLET PO PRN (14:31)
[2017-03-29] MEDS ORDERED: oxyCODONE HCL 5 MG TABLET PO PRN (14:31)
[2017-03-29] MEDS ORDERED: BISACODYL 5 MG TABLET PO PRN (14:31)
[2017-03-29] MEDS ORDERED: HEPARIN 5,000 UNIT/ML VIAL ONE (15:44)
[2017-03-29] MEDS ORDERED: WARFARIN 5 MG TABLET ONE (15:45)
[2017-03-29] MEDS ORDERED: GABAPENTIN 100 MG CAPSULE PO SCH (21:00)
[2017-03-30 05:49] LABS: Basophils # (Auto) 0 K/mcL (0.0-0.3); Basophils % (Auto) 0.4 % (0.0-2.0); Eosinophils # (Auto) 0.2 K/mcL (0.0-0.7); Eosinophils % (Auto) 3.5 % (0.0-7.0); Granulocytes % (Auto) 65.1 % (38.0-78.0); Lymphocytes # (Auto) 1.2 K/mcL (1.5-4.8); Lymphocytes % (Auto) 20.2 % (15.5-49.0); Mean Cell Volume 95.6 fL (80.0-100.0); Mean Corpuscular HGB Conc 35.3 g/dL (31.0-36.0); Mean Corpuscular Hemoglobin 33.7 pg (26.0-34.0); Monocytes # (Auto) 0.7 K/mcL (0.1-0.9); Monocytes % (Auto) 10.8 % (1.0-12.0); Platelet Count 341 K/mcL (140-440); RBC 2.66 M/mcL (4.00-5.20); Red Cell Distribution Width 17.8 % (11.5-14.5)
[2017-03-30] MEDS: HEPARIN 5,000 UNIT/ML VIAL SQ SCH (06:00)
[2017-03-30 06:15] LABS: ALT/SGPT 85 U/l (0-40); Albumin 3.2 gm/dL (3.2-5.2); Alkaline Phosphatase 249 U/L (39-117); Bilirubin,Direct < 0.2 mg/dL (0.0-0.3); Blood Urea Nitrogen 38 mg/dl (8-23); Gamma Glutamyl Transpeptidase 140 U/L (5-36); Uric Acid 4.8 mg/dL (2.5-8.0)
[2017-03-30] MEDS: DILTIAZEM 180 MG CAP.XL.24H PO SCH (08:27)
[2017-03-30] MEDS: CARVEDILOL 12.5 MG TABLET PO SCH (08:27)
[2017-03-30] MEDS ORDERED: TORSEMIDE 10 MG TABLET PO SCH (09:00)
--- NOTE | 2017-03-30 09:44 | Discharge Summary ---
Medical - DS: Prov Patient information: Note initiated : 03/30/17 at 9:37 am Service Date, if different from initiated Date: [] Patient: Stefany Chew 62 y/o F admitted on 03/27/17 for Chest Pain, SOB/AFib with RVR. Chief Complaint: [] Date of admission: 03/27/17 21:10 Discharge date: 03/30/17 Primary care physician: Jazmyn Lindsay Admitting clinician: Alisha Moser Consults: 03/27/17 14:45 Consult to Physician [CONS] Stat Comment: Consulting Provider: Chong Zhang Reason For Exam: Physician to Consult 03/27/17 19:02 Consult to Physician [CONS] Stat Comment: Consulting Provider: Alisha Moser Reason For Exam: Physician to Consult Discharging clinician: Alisha Moser Medical - DS: Meds - Discharge Medications Prescriptions: Carvedilol [Coreg] 12.5 mg PO BIDCC #60 tab Warfarin [Coumadin] 5 mg PO DAILY@1400 #30 tab Active and Home Medications: Home Medications oxycodone 5 mg tablet 20 mg PO Q4H PRN 03/22/16 [History Confirmed 03/27/17 Last Taken 02/14/17] diltiazem CD 180 mg capsule,extended release 24 hr 180 mg PO BID #180 cap [Rx Confirmed 03/27/17 Last Taken 02/14/17] carvedilol 6.25 mg tablet 6.25 mg PO BID 90 Days #180 tab 08/09/16 [Rx Confirmed 03/27/17 Last Taken 02/14/17] torsemide 20 mg tablet 40 mg PO QDAY #60 tab 09/06/16 [Rx Confirmed 03/27/17 Last Taken 02/14/17] calcium acetate 667 mg capsule 2,001 mg PO TID 30 Days #270 cap 10/17/16 [Rx Confirmed 03/27/17 Last Taken 02/14/17] lidocaine-prilocaine 2.5 %-2.5 % topical cream 1 g TOPICAL ONCE #30 g 03/01/17 [ Rx Confirmed 03/27/17 Last Taken Unknown] vitamin B complex with C-folic acid 0.8 mg-zinc citrate 15 mg tablet 1 tab PO QDAY #90 tab 03/02/17 [Rx Last Taken Unknown] gabapentin 100 mg capsule 100 mg PO QHS #30 cap 03/27/17 [Rx Confirmed 03/27/17 Last Taken Unknown] Medical - DS: Hosp Hospital course: Ms. Chew is a 62 year old Female with h/o esrd, on hd, and htn with multple other issues presents to the ER with complaints of chest pain and palpitations which started at the end of dialysis. The patient noted she had moderate chest pain in the upper part of her chest, radiating to both shoulders and jaws, lasted 30 mins, non related to activity, sharp, associated with palpitations, nausea, and some dizziness. She notes that the dialysis nurse noted her to be very tachycardic and was therefore sent to the ER for further evaluation. The patient notse that her chest pain resolved after coming to the ER In the ER she was noted to be tachycardic, and having new onset afib with RVR. The patient was given cardizem and digoxin, and later placed on a cardizem drip to help with rate control The patient returned spontaneously to sinus rhythm later and is off drip during my eval Patient has mildly elevated wbc, hb 8.7, plat 411 she had trop x 3 negative. X ray shwos cardiomegaly and mild pulm congestion EKG afib with rvr on presentation, later showes sinus rhytym, ? q waves, non sp st wave changes in inf and lateral leas, no old ekg to compare The patient given h/o esrd and new onset Afib was admitted to the hospital for further management. Afib: new onset, patient has risk factors warrant anticoagulation with couamdin , Initially plan was to start coumadin in house, however it seems that the patient has a scheduled cataract surgery planned for sunday next week. I will prescribe coumadin to the patient, and she will start taking this medication after her cataract surgery once cleared by her surgeon. Follow up with PCP for further management. For her rate control I have increased her dose of coreg from 6.25 bid to 12.5 bid, she will continue on her diltazem 180mg bid as per her PCP The patient had and Echo done which showed mild lv dilation, normal lv function Chest pain: No e/o acute nstemi while in the hospital, but given patient risks she will benefit from a cardiac stress test, leia in light of her new afib. I will try to schedule this as outpatient as soon as possible and have the patient follow up the results with pcp. The patient Chest pain seems positional, leia when she lies on the back or on the left side Elevate LFT: The patient had rising lft on day 1 of admission, she has had a recent mrcp and eus done by Dr Callejas in [facility] for same and no obstruction was found. However the LFT were normal during the EUS procedure. The patient LFT are trending down at this time. I had reviewed the case with Dr Callejas who advised that she will need outpatient follow for abnl LFT. Given that her LFT are trending down I will send her back to her GI physician Dr Ziegler and Leigh who have been following this for a while now. She will need to go back up to [place] if the liver function test start to trend up again for ERCP and possible papilectomy The patient has ESRD on HD which is followed by Dr Saldivar, the patient is scheduled for dialysis tomorrow Anemia: Anemia of chr disease present, unfortunatly pt is not a candidate for epogen as she has lung cancer. The patient did receive 2 units of prbc transfusion which she tolerated well. The rest of the stay in the hospital was uneventful. She is afebrile, has no GI complaints and her lft are trending down, her heb is stable at discharge. Discharge diagnosis: Afib with RVR, Chest pain, Elevated LFT. - Time Spent with Patient Total time spent providing and/or coordinating discharge services: Greater than 30 minutes Medical - DS: Exam - Constitutional Vitals: Vital Signs Temp Pulse Resp BP BP Pulse Ox 03/30/17 08:00 76 16 171/88 100 03/30/17 04:00 97.9 F 94 H 18 116/69 94 03/29/17 23:50 98.3 F 77 18 131/68 94 03/29/17 19:20 98.6 F 71 16 125/71 95 03/29/17 16:00 98.2 F 79 16 159/72 96 03/29/17 12:00 97.6 F 14 130/64 97 Intake and Output 03/29/17 03/30/17 03/30/17 21:59 05:59 13:59 Intake Total 350 / 350 25 / 25 Balance 350 / 350 25 / 25 Intake: Oral 350 / 350 / 25 Other: Meal Dinner Percent of Meal Consumed 100% Feeding Ability Independent # Voids 1 Weight 206 lb Additional comments: Constitutional; Afebrile, cooperative, alert, not in distress. Eyes- No icterus, , No periorbital swelling Ears- Ext ear normal, hearing normal to conversation. Neck- Midline trachea, supple Respiratory system: Air Entry equal on both sides, No crackles or wheezing, no rhonchi. CVS- Rate rhythm regular, S1,S2 heard, no gallop, no rub. Abdomen- Soft nontender abdomen, no organomegaly, no tenderness, no guarding or rigidity, [employer]- AOOx3, moving all extremities, no gross focal deficit noted. Medical - DS: Data Labs on day of discharge: Labs from last 24 hours 03/30/17 03/30/17 03/30/17 04:19 04:19 04:19 WBC 6.1 RBC 2.66 L Hgb 9.0 L Hct 25.4 L MCV 95.6 MCH 33.7 MCHC 35.3 RDW 17.8 H Plt Count 341 MPV 7.0 L Gran % 65.1 Lymph % (Auto) 20.2 Duval % (Auto) 10.8 Eos % (Auto) 3.5 Baso % (Auto) 0.4 Gran # 4.0 Lymph # (Auto) 1.2 L Duval # (Auto) 0.7 Eos # (Auto) 0.2 Baso # (Auto) 0 PT 13.4 INR 1.0 Sodium 135 Potassium 4.0 Chloride 92 L Carbon Dioxide 29 Anion Gap 14.0 BUN 38 H Creatinine 5.3 H* GFR Calculation 8 Glucose 87 Uric Acid 4.8 Calcium 8.7 Phosphorus 5.4 H Magnesium 2.0 Total Bilirubin 0.3 Direct Bilirubin < 0.2 GGT 140 H AST 34 ALT 85 H Alkaline Phosphatase 249 H Lactate Dehydrogenase 249 Total Protein 6.5 Albumin 3.2 Globulin 3.3 Albumin/Globulin Ratio 1.0 Triglycerides 106 Procalcitonin 03/29/17 12:13 WBC RBC Hgb Hct MCV MCH MCHC RDW Plt Count MPV Gran % Lymph % (Auto) Duval % (Auto) Eos % (Auto) Baso % (Auto) Gran # Lymph # (Auto) Duval # (Auto) Eos # (Auto) Baso # (Auto) PT INR Sodium Potassium Chloride Carbon Dioxide Anion Gap BUN Creatinine GFR Calculation Glucose Uric Acid Calcium Phosphorus Magnesium Total Bilirubin Direct Bilirubin GGT AST ALT Alkaline Phosphatase Lactate Dehydrogenase Total Protein Albumin Globulin Albumin/Globulin Ratio Triglycerides Procalcitonin 0.91 Preliminary micro results at discharge 03/28/17 11:15 Blood Culture - Preliminary Blood 03/28/17 11:30 Blood Culture - Preliminary Blood Medical - DS: A/P - Patient/Caregiver Discharge Instructions Activity: increase activity as tolerated Diet: Renal Additional Instructions: Continue with Dr. Saldivar in Dialysis clinic. You will have your scheduled dialysis tomorrow. Follow up with GI Dr Esparza in 2 weeks, recommend check liver functino tests at that time Follow up with PCP in 1 week Start taking Coumadin after you have had your cataract surgery, Discuss with your PCP with regards to INR monitoring and dose adjustments in Coumadin. You must have your INR checked within 3 days of initiation of Coumadin. So you must see your PCP by next Sunday the latest I have increased the dose of coreg from 6.25mg bid to 12.5mg bid, new prescription sent to your pharmacy. You will benefit from an evaluation by a quality improvement manager please review with Dr Lindsay to make the appropriate referral to the quality improvement manager of your choice. You also need a Stress test we will try to schedule this for you. Cardiolite exercise stress test with MPI study. Go to the ER if any fever, chest pain, shortness of breath or abdominal pain. - Follow up Plan Follow up with: Jazmyn Lindsay MD [Primary Care Provider] - 04/02/17 3:30 pm Disposition: Home, Self-Care Prognosis: Fair Rehab Potential: Fair I certify that the patient requires SNF services: No Overall status at discharge: patient is back to baseline
[2017-03-30] MEDS ORDERED: WARFARIN 5 MG TABLET PO SCH (14:00)
== END 2017-03-30 12:05 | disposition home or self-care (01) | DRG 308 ==
LOC: ICU 11:45 → ED 11:45 → OBSVTOIN 21:10 → ICU 21:15
PROVIDERS: ADMIT Internal Medicine; ATTEND Internal Medicine

== ENCOUNTER 2017-09-14 15:55 | Inpatient (IN) ==
[2017-09-14] MEDS ORDERED: NALOXONE HCL 0.4 MG/ML VIAL IV PRN (17:53)
[2017-09-14] MEDS ORDERED: oxyCODONE HCL 5 MG TABLET PO PRN (17:53)
[2017-09-14] MEDS ORDERED: METOCLOPRAMIDE 10 MG TABLET PO PRN (18:13)
--- NOTE | 2017-09-14 18:13 | Internal Med History&Physical ---
Medical - H&P: HPI Patient information: Note initiated : 09/14/17 at 6:13 pm Service Date, if different from initiated Date: [] Patient: Stefany Chew a 62 y/o F admitted on 09/14/17 for Pneumonia. Chief Complaint: [] History of present illness: Ms. Chew is a 62 year old Female with history of end-stage renal disease she is on dialysis on Tuesdays and Saturdays, follows with Dr. Saldivar she also has a history of lung cancer and is going to undergo chemotherapy for same. The patient has been short of breath going on for the last 1 week. Shortness of breath has progressively been getting worse, she admits that during dialysis for the last couple of sessions her oxygen levels were low and she needed supplemental oxygen. Yesterday she was advised to go to the emergency room for further evaluation however she declined. The patient today noted that her shortness of breath was much worse. She therefore presented to [facility] for evaluation and management. In the emergency room there a chest x-ray was done which showed an infiltrate in the left lobe. She has also chronic effusion on the right hemothorax. No evidence of CHF reported. The patient's labs showed leukocytosis with a hemoglobin of 8.2 WBC 13.9 platelets 420. Left lites were stable, potassium 4.0 bicarbonate 27. BUN was 34 creatinine 4.9. VBG done showed a pH of 7.5. The [facility] did not have dialysis on Saturdays and therefore the patient was presented here at [facility] for further evaluation and treatment. The patient was admitted to medical floor for further management. The patient notes that she may have had some cough that is slightly worse than a chronic cough. She usually has chronic cough in the morning and over the week may be her cough is slightly worse. She admits to being more fatigued and more tired than usual. Otherwise she denies any headache, changes in vision hearing or difficulty in swallowing, she denies any acute chest pain, does admit to having shortness of breath, no wheezing, she has decreased effort tolerance. She has chronic nausea she had attributes this to inflammation of the bile duct and follows up with Dr. Esparza for same. She denies any vomiting she denies any constipation or diarrhea. She denies any acute joint pain joint swellings no new skin rashes no depression no anxiety. Denies any acute bleeding she denies any allergic reactions she denies any other acute concerns or complaint She wishes to be full code All systems: reviewed and no additional remarkable complaints except as stated ( as per HPI) Medical - H&P: PMH Medical history: Medical History (Last Updated 05/11/17 @ 13:58 by Merly Stovall) Chills with fever (Chronic) Chills (without fever) (Chronic) Arthritis of multiple sites (Chronic) Acute bronchitis (Chronic) Osteoarthritis (Chronic) Microscopic hematuria (Chronic) Pericarditis (Chronic) Diverticulitis of colon (Chronic) Cardiac disorder (Chronic) Depression (Chronic) History of blood transfusion (Chronic) Backache (Chronic) Hepatitis B infection (Chronic) Allergic rhinitis (Chronic) Anemia (Chronic) Chronic hepatitis C (Chronic) Hypertension (Chronic) Hyperlipidemia (Chronic) Vitamin D deficiency (Chronic) Leg cramps (Chronic) Acute sinusitis (Chronic) Arthritis (Chronic) Blood loss anemia (Chronic) Cervicalgia (Chronic) Chest pain (Chronic) Chronic obstructive pulmonary disease (Chronic) Acute stress reaction (Chronic) Essential (primary) hypertension (Chronic) 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) Decreased renal function (Chronic) Viral hepatitis C without hepatic coma (Chronic) Lower abdominal pain (Chronic) Nostril infection (Chronic) Pain (Chronic) Pain in right hip (Chronic) Postmenopausal (Chronic) Right lower quadrant pain (Chronic) Sciatica (Chronic) Shortness of breath (Chronic) Skin pustule (Chronic) Symptomatic anemia (Chronic) Thyroid enlargement (Chronic) Tiredness (Chronic) Tubular adenoma of colon (Chronic) Ventral hernia (Chronic) Vertigo (Chronic) Chronic kidney disease, stage 4 (severe) (Chronic) History of proctoscopy (Chronic) Surgical history: Past Surgical History Status post excision of thyroid adenoma (Chronic) History of D&C (Chronic) History of cholecystectomy (Chronic) History of colonoscopy (Chronic) History of cystoscopy (Chronic) History of decompression of median nerve (Chronic) History of fusion of cervical spine (Chronic) History of hysterectomy (Chronic) History of repair of rotator cuff (Chronic) History of thyroidectomy (Chronic) History of tonsillectomy and adenoidectomy (Chronic) Status post biopsy of kidney (Chronic) Pertinent family history: Family History Unknown Skin cancer of nose Diabetes mellitus Pulmonary embolism Breast cancer CAD (coronary artery disease) Diabetes mellitus, type II Medical - H&P: Meds Home Medications Medication Instructions Recorded Confirmed Type oxycodone 5 mg tablet 20 mg PO Q4H PRN 03/22/16 09/14/17 History diltiazem CD 180 mg 180 mg PO BID #180 cap 06/19/16 09/14/17 Rx capsule,extended release 24 hr torsemide 20 mg tablet 40 mg PO QDAY #60 tab 09/06/16 09/14/17 Rx calcium acetate 667 mg capsule 2,001 mg PO TID 30 Days #270 cap 10/17/16 Rx Amiodarone HCl [Cordarone] 200 mg PO QPM 04/28/17 09/14/17 History carvedilol 6.25 mg tablet 6.25 mg PO BID 07/26/17 09/14/17 History cholecalciferol (vitamin D3) 1,000 1,000 unit PO QDAY cap 07/26/17 09/14/17 History unit capsule ibuprofen 400 mg tablet 400 mg PO Q6H PRN tab 07/26/17 09/14/17 History metoclopramide 10 mg tablet 10 mg PO Q6H PRN tab 07/26/17 09/14/17 History ondansetron HCl 8 mg tablet 8 mg PO Q8H PRN tab 07/26/17 09/14/17 History warfarin 7.5 mg tablet 7.5 mg PO QDAY tab 07/26/17 09/14/17 History Allergies Allergy/AdvReac Type Severity Reaction Status Date / Time HANH Inhibitors Allergy Unknown dry Verified 04/11/17 12:27 nostrils, throat tickle latex Allergy Unknown unknown Verified 04/11/17 12:27 Sulfa (Sulfonamide Allergy Unknown unknown Verified 04/11/17 12:27 Antibiotics) Medical - H&P: Exam - Constitutional Vitals: Temp Resp BP Pulse Ox 97.3 F 20 186/67 93 09/14/17 16:59 09/14/17 16:59 09/14/17 16:59 09/14/17 16:59 Exam: GENERAL: The patient is a well-developed, well-nourished in no apparent distress. Is alert and oriented x3. VITAL SIGNS: Reviewed and as noted elsewhere. HEENT: Head is normocephalic and atraumatic. Extraocular muscles are intact. Pupils are equal, round, and reactive to light. Nares appeared normal. Mouth appears any without lesions. Mucous membranes are moist. NECK: Normal to inspection, Supple, No lymphadenopathy or thyromegaly. LUNGS air entry is decreased on the right side, patient has decreased air entry in the right lower lobe right mid zone as well as partial right upper zone. Left-sided air entry is good and breath sounds are normal. No wheezing or rhonchi. The patient is able to speak full sentences she has no accessory muscle use HEART: Regular rate and rhythm normal, S1 and S2 heard, no Gallop, S3 or Rub Noted, patient has a systolic murmur 4 / 6 in the aortic region. ABDOMEN: Soft, nontender, and nondistended. Positive bowel sounds. No hepatosplenomegaly was noted. EXTREMITIES: No cyanosis, clubbing, rash, lesions or edema. NEUROLOGIC: Cranial nerves II through XII are grossly intact. Motor and Sensory System Grossly Intact PSYCHIATRIC: Normal affect, Normal Mood. Appropriate Behavior. SKIN: No ulceration or wounds noted, No jaundice, No rash noted. Medical - H&P: A/P - Narrative A/P Narrative: A/P Healthcare associated pneumonia-treated with IV vancomycin and Zosyn. A chest x -ray tomorrow morning. We will follow blood culture results I believe there was sent at [facility] emergency room. Acute hypoxic respiratory failure-patient may also have chronic hypoxia. Oxygen via nasal cannula presently on 3 L to maintain oxygen more than 90. Atrial fibrillation-rate controlled, continue medications, Chronic anticoagulation-due to atrial fibrillation, check INR, continue warfarin per pharmacy Lung cancer-patient plans to start chemotherapy I believe on the of this month. Awaiting paperwork to be completed End-stage renal disease-nephrology consulted for scheduled dialysis Elevated blood [id number]-[id number] home blood pressure medications monitor blood pressure Chronic pain-continue home pain medication regimen. Anemia-anemia of chronic disease, hemoglobin is 8.2 which is near patient's baseline. DVT prophylaxis-patient is on Coumadin, check INR if needed we will use heparin subcu Patient wishes to be full code Renal diet Social History - Social History marital status: single - Tobacco smoking status: Former smoker
[2017-09-14] MEDS ORDERED: IBUPROFEN 200 MG TABLET PO PRN (18:17)
[2017-09-14] MEDS ORDERED: VANCOMYCIN 1,500 MG in 0.9 % SODIUM CHLORIDE 500 ML IV ONE (18:43)
[2017-09-14] MEDS ORDERED: VANCOMYCIN PER PHARMACY IV ONE (18:44)
[2017-09-14] MEDS ORDERED: PHYTONADIONE 2.5 MG in 0.9 % SODIUM CHLORIDE 50 ML PO ONE (19:13)
[2017-09-14] MEDS ORDERED: PHYTONADIONE 5 MG in 0.9 % SODIUM CHLORIDE 50 ML PO ONE (19:15)
[2017-09-14] MEDS: PIPERACILLIN SODIUM/TAZOBACTAM 2.25 GM in DEXTROSE 5% IN WATER 50 ML IV SCH (19:23)
[2017-09-14] MEDS ORDERED: PHYTONADIONE 10 MG/ML AMPUL PO ONE (20:00)
[2017-09-14] MEDS: DILTIAZEM 30 MG TABLET PO SCH (20:55)
[2017-09-14] MEDS: CARVEDILOL 6.25 MG TABLET PO SCH (20:55)
[2017-09-14] MEDS: AMIODARONE HCL 200 MG TABLET PO SCH (20:55)
[2017-09-14] MEDS: 0.9 % SODIUM CHLORIDE 10 ML SYRINGE IV SCH (20:56)
[2017-09-14] MEDS ORDERED: HEPARIN 5,000 UNIT/ML VIAL SQ SCH (21:00)
[2017-09-14] MEDS: oxyCODONE HCL 5 MG TABLET PO PRN (22:08)
[2017-09-14] MEDS: ACETAMINOPHEN 325 MG TABLET PO PRN (22:10)
[2017-09-15] MEDS: PIPERACILLIN SODIUM/TAZOBACTAM 2.25 GM in DEXTROSE 5% IN WATER 50 ML IV SCH ×3 (03:36→21:32)
[2017-09-15] MEDS: 0.9 % SODIUM CHLORIDE 10 ML SYRINGE IV SCH ×3 (04:52→21:32)
[2017-09-15 05:01] LABS: Basophils # (Auto) 0 K/mcL (0.0-0.3); Basophils % (Auto) 0.2 % (0.0-2.0); Eosinophils # (Auto) 0.5 K/mcL (0.0-0.7); Eosinophils % (Auto) 3.7 % (0.0-7.0); Granulocytes % (Auto) 85.7 % (38.0-78.0); Lymphocytes # (Auto) 0.8 K/mcL (1.5-4.8); Lymphocytes % (Auto) 5.4 % (15.5-49.0); Mean Cell Volume 97.1 fL (80.0-100.0); Mean Corpuscular HGB Conc 33.9 g/dL (31.0-36.0); Mean Corpuscular Hemoglobin 32.9 pg (26.0-34.0); Monocytes # (Auto) 0.7 K/mcL (0.1-0.9); Platelet Count 369 K/mcL (140-440); RBC 2.22 M/mcL (4.00-5.20); Red Cell Distribution Width 16.1 % (11.5-14.5)
[2017-09-15 05:24] LABS: Vancomycin,Random 20.5 ug/mL
[2017-09-15 05:25] LABS: ALT/SGPT < 5 U/l (0-40); Albumin/Globulin Ratio 0.9 (1.0-2.3); Alkaline Phosphatase 73 U/L (39-117); Bilirubin,Direct < 0.2 mg/dL (0.0-0.3); Blood Urea Nitrogen 42 mg/dl (8-23); Gamma Glutamyl Transpeptidase 21 U/L (5-36); Uric Acid 4.4 mg/dL (2.5-8.0)
--- NOTE | 2017-09-15 05:40 | Nephrology Consult Note ---
History of Present Illness - Reason for Consult Patient information: Note initiated : 09/15/17 at 5:38 am Patient: Stefany Chew 62 y/o F admitted on 09/14/17 for Pneumonia. Chief Complaint: Shortness of breath. Consult date: 09/15/17 end stage renal disease Requesting physician: Alisha Moser - Chief Complaint Shortness of breath - History of Present Illness Stefany Chew is a [id number] female with end stage renal disease on chronic hemodialysis (through right arm AV fistula, at [facility], on TTS, followed by Dr Saldivar ), chronic anemia due to chronic kidney disease, secondary hyperparathyroidism, coronary artery disease by calcifications on CT, history of pericardial effusion s/p pericardial window, chronic atrial fibrillation on Coumadin anticoagulation, hypertension, hyperlipidemia, chronic obstructive pulmonary disease with tobacco dependence in remission, history of metastatic lung adenocarcinoma with right pleural metastasis and malignant right pleural effusion s/p robotic-assisted right lower lobectomy/mediastinal lymph node resection on 10/19/16 and 4 cycles of carboplatin/paclitaxel completed on 02/01/17 , presented to [facility] ED on 09/14/17 and admitted to [facility]. Review of Systems Constitutional: fatigue, weakness Nose, mouth and throat: no nasal congestion, no sore throat Cardiovascular: no chest pain, no palpatations Respiratory: cough, dyspnea Gastrointestinal: nausea, no abdominal pain Genitourinary: no dysuria, no hematuria Musculoskeletal: no joint swelling, no neck pain Integumentary: no rash, no jaundice Neurological: no convulsions, no syncope Psychiatric: no confusion, no panic attacks Endocrine: no cold intolerance, no heat intolerance Hematologic/Lymphatic: easy bleeding, easy bruising Allergic/Immunologic: no tongue swelling, no uticaria Past History Past medical history: Medical History (Last Updated 05/11/17 @ 13:58 by Merly Stovall) Chills with fever (Chronic) Chills (without fever) (Chronic) Arthritis of multiple sites (Chronic) Acute bronchitis (Chronic) Osteoarthritis (Chronic) Microscopic hematuria (Chronic) Pericarditis (Chronic) Diverticulitis of colon (Chronic) Cardiac disorder (Chronic) Depression (Chronic) History of blood transfusion (Chronic) Backache (Chronic) Hepatitis B infection (Chronic) Allergic rhinitis (Chronic) Anemia (Chronic) Chronic hepatitis C (Chronic) Hypertension (Chronic) Hyperlipidemia (Chronic) Vitamin D deficiency (Chronic) Leg cramps (Chronic) Acute sinusitis (Chronic) Arthritis (Chronic) Blood loss anemia (Chronic) Cervicalgia (Chronic) Chest pain (Chronic) Chronic obstructive pulmonary disease (Chronic) Acute stress reaction (Chronic) Essential (primary) hypertension (Chronic) 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) Decreased renal function (Chronic) Viral hepatitis C without hepatic coma (Chronic) Lower abdominal pain (Chronic) Nostril infection (Chronic) Pain (Chronic) Pain in right hip (Chronic) Postmenopausal (Chronic) Right lower quadrant pain (Chronic) Sciatica (Chronic) Shortness of breath (Chronic) Skin pustule (Chronic) Symptomatic anemia (Chronic) Thyroid enlargement (Chronic) Tiredness (Chronic) Tubular adenoma of colon (Chronic) Ventral hernia (Chronic) Vertigo (Chronic) Chronic kidney disease, stage 4 (severe) (Chronic) History of proctoscopy (Chronic) Past surgical history: Past Surgical History Status post excision of thyroid adenoma (Chronic) History of D&C (Chronic) History of cholecystectomy (Chronic) History of colonoscopy (Chronic) History of cystoscopy (Chronic) History of decompression of median nerve (Chronic) History of fusion of cervical spine (Chronic) History of hysterectomy (Chronic) History of repair of rotator cuff (Chronic) History of thyroidectomy (Chronic) History of tonsillectomy and adenoidectomy (Chronic) Status post biopsy of kidney (Chronic) Past family history: Family History Unknown Skin cancer of nose Diabetes mellitus Pulmonary embolism Breast cancer CAD (coronary artery disease) Diabetes mellitus, type II Past social history: Does not smoke. Medications and Allergies Home Medications Medication Instructions Recorded Confirmed Type oxycodone 5 mg tablet 20 mg PO Q4H PRN 03/22/16 09/14/17 History torsemide 20 mg tablet 40 mg PO QDAY #60 tab 09/06/16 09/14/17 Rx calcium acetate 667 mg capsule 2,001 mg PO TID 30 Days #270 cap 10/17/16 Rx Amiodarone HCl [Cordarone] 200 mg PO QPM 04/28/17 09/14/17 History carvedilol 6.25 mg tablet 6.25 mg PO BID 07/26/17 09/14/17 History cholecalciferol (vitamin D3) 1,000 1,000 unit PO QDAY cap 07/26/17 09/14/17 History unit capsule ibuprofen 400 mg tablet 400 mg PO Q6H PRN tab 07/26/17 09/14/17 History metoclopramide 10 mg tablet 10 mg PO Q6H PRN tab 07/26/17 09/14/17 History ondansetron HCl 8 mg tablet 8 mg PO Q8H PRN tab 07/26/17 09/14/17 History warfarin 7.5 mg tablet 7.5 mg PO QDAY tab 07/26/17 09/14/17 History Diltiazem [Cardizem] 180 mg PO BID 09/14/17 09/14/17 History Allergies Allergy/AdvReac Type Severity Reaction Status Date / Time HANH Inhibitors Allergy Unknown dry Verified 04/11/17 12:27 nostrils, throat tickle latex Allergy Unknown unknown Verified 04/11/17 12:27 Sulfa (Sulfonamide Allergy Unknown unknown Verified 04/11/17 12:27 Antibiotics) Exam - Vital Signs Vital signs: Temp Pulse Resp BP Pulse Ox 97.8 F 60 20 134/68 92 09/15/17 03:36 09/15/17 03:36 09/15/17 03:36 09/15/17 03:36 09/15/17 03:36 - General Appearance General appearance: appears started age EENT: mucous membranes moist Neck: supple Respiratory: rales Cardiology: normal S1, normal S2 Gastrointestinal: no tenderness Integumentary: warm and dry Neurologic: no focal deficit Musculoskeletal: no erythema, no cyanosis Psychiatric: mood/affect appropriate, cooperative Results - Lab Results 09/15/17 04:27 09/15/17 04:27 Most recent lab results Calcium 9.0 mg/dl (8.6-10.4) 09/15/17 04:27 Phosphorus 5.0 mg/dL (2.7-4.5) H 09/15/17 04:27 Magnesium 1.9 mg/dL (1.6-2.5) 09/15/17 04:27 Assessment and Plan (1) ESRD (end stage renal disease) on dialysis Hemodialysis today. The patient seen and evaluated on dialysis at 09:15. No Heparin due to elevated INR. UF as tolerated. Next dialysis on Sunday. Status: Chronic Priority: Medium
[2017-09-15] MEDS ORDERED: VANCOMYCIN PER PHARMACY IV SCH (07:30)
--- NOTE | 2017-09-15 09:02 | XRay Report ---
HISTORY: Reason for Exam:pneumonia. FINDINGS: Severe widespread pneumonia is present in the left lung with the greatest involvement in the upper two thirds. A moderate amount of pleural fluid surrounds right lung. There is partial consolidation of the right middle and right lower lobes which may be a combination of atelectasis and pneumonia. Milder infiltrate is present in the right upper lobe. There is a pleural drain located in the right lower thorax. No pneumothorax is present. The heart is partially obscured by the consolidated lung and pleural fluid. It may be mildly enlarged. There has been no significant change from the prior chest x-ray done at [facility] on 09/14/17.. IMPRESSION: Severe pneumonia, stable right-sided pleural effusion No significant change from yesterday Interpreted and Authenticated by: Coleman Serrano 09/15/17
--- NOTE | 2017-09-15 11:44 | Internal Med Progress Note ---
Medical - PN: Subj Patient information: Note initiated : 09/15/17 at 11:42 am Service Date, if different from initiated Date: [] Patient: Stefany Chew a 62 y/o F admitted on 09/14/17 for Pneumonia. Chief Complaint: [] Interval history: History of present illness: Ms. Chew is a 62 year old Female with history of end-stage renal disease she is on dialysis on Tuesdays and Saturdays, follows with Dr. Saldivar she also has a history of lung cancer and is going to undergo chemotherapy for same. The patient has been short of breath going on for the last 1 week. Shortness of breath has progressively been getting worse, she admits that during dialysis for the last couple of sessions her oxygen levels were low and she needed supplemental oxygen. Yesterday she was advised to go to the emergency room for further evaluation however she declined. The patient today noted that her shortness of breath was much worse. She therefore presented to [facility] for evaluation and management. In the emergency room there a chest x-ray was done which showed an infiltrate in the left lobe. She has also chronic effusion on the right hemothorax. No evidence of CHF reported. The patient's labs showed leukocytosis with a hemoglobin of 8.2 WBC 13.9 platelets 420. Left lites were stable, potassium 4.0 bicarbonate 27. BUN was 34 creatinine 4.9. VBG done showed a pH of 7.5. The [facility] did not have dialysis on Saturdays and therefore the patient was presented here at [facility] for further evaluation and treatment. The patient was admitted to medical floor for further management. The patient notes that she may have had some cough that is slightly worse than a chronic cough. She usually has chronic cough in the morning and over the week may be her cough is slightly worse. She admits to being more fatigued and more tired than usual. Otherwise she denies any headache, changes in vision hearing or difficulty in swallowing, she denies any acute chest pain, does admit to having shortness of breath, no wheezing, she has decreased effort tolerance. She has chronic nausea she had attributes this to inflammation of the bile duct and follows up with Dr. Esparza for same. She denies any vomiting she denies any constipation or diarrhea. She denies any acute joint pain joint swellings no new skin rashes no depression no anxiety. Denies any acute bleeding she denies any allergic reactions she denies any other acute concerns or complaint She wishes to be full code 09/15 Patient seen and examined no acute overnight events. Patient has no acute complaints. Patient had elevated INR, 5 mg of p.o. vitamin K given. Patient denies any acute bleed. Her hemoglobin has dropped to 7.3 this morning. INR has improved to 14. We will repeat another dose of vitamin K and monitor INR level. If the patient shows any evidence of bleeding will transfuse as well as give FFP. Chest x-ray shows pneumonia stable since yesterday on the left side. She has significant effusion on the right side which is chronic she has a drain in place on the right side which is placed by radiology at [facility]. She notes that around 70 cc of fluid was aspirated the last time. I have advised her to discuss this with the radiologist as there is a lot more fluid in the chest cavity than what is being presently drained. Pertinent ROS: Denies headache, dizziness Denies chest pain, palpitations Denies cough or shortness of breath Denies abdominal pain, nausea or vomiting. - Constitutional Vitals: Vital Signs Temp Pulse Resp BP Pulse Ox 96.8 F L 66 16 150/62 90 09/15/17 09:00 09/15/17 11:30 09/15/17 08:00 09/15/17 11:30 09/15/17 08:00 Period Temp Pulse Resp BP Sys/Reid Pulse Ox Last 24 Hr 96.8 F-98.2 F 59-75 16-20 125-186/59-76 90-96 Intake and Output 09/14/17 09/15/17 09/15/17 21:59 05:59 13:59 Intake Total 360 / 360 100 / 100 Balance 360 / 360 100 / 100 Weight 182 lb Intake & Output: Intake & Output 09/14/17 09/15/17 09/15/17 21:59 05:59 13:59 Intake Total 360 / 360 100 / 100 Balance 360 / 360 100 / 100 Weight 182 lb Intake: Oral 360 / 360 100 / 100 Other: Meal Dinner Percent of Meal Consumed 75% Feeding Ability Independent Exam: Constitutional; Afebrile, cooperative, alert, not in distress. Eyes- No icterus, , No periorbital swelling Ears- Ext ear normal, hearing normal to conversation. Neck- Midline trachea, supple Respiratory system: Air entry reduced on the right side at the base and mid zone air entry somewhat improved than yesterday in the right upper zone. Left side appears normal no wheezing no rhonchi. CVS- Rate rhythm regular, S1,S2 heard, no gallop, no rub. Abdomen- Soft nontender abdomen, no organomegaly, no tenderness, no guarding or rigidity, [employer]- AOOx3, moving all extremities, no gross focal deficit noted. Medical - PN: Obj Da - Labs CBC & Chem 7: 09/15/17 04:27 09/15/17 04:27 Labs: Abnormal Lab Results 09/15/17 09/15/17 09/15/17 04:27 04:27 04:27 WBC 14.4 H RBC 2.22 L Hgb 7.3 L Hct 21.6 L RDW 16.1 H MPV 6.7 L Gran % 85.7 H Lymph % (Auto) 5.4 L Gran # 12.3 H Lymph # (Auto) 0.8 L PT 111.3 H INR 14.7 H* Chloride 90 L BUN 42 H Creatinine 6.5 H* Glucose 113 H Phosphorus 5.0 H Lactate Dehydrogenase 395 H Albumin 3.0 L Albumin/Globulin Ratio 0.9 L Triglycerides 155 H 09/14/17 18:08 WBC RBC Hgb Hct RDW MPV Gran % Lymph % (Auto) Gran # Lymph # (Auto) PT 127.4 H INR 17.4 H* Chloride BUN Creatinine Glucose Phosphorus Lactate Dehydrogenase Albumin Albumin/Globulin Ratio Triglycerides Meds: Medications Acetaminophen (Tylenol) 650 mg PO Q6HP PRN PRN Reason: PAIN/FEVER > 101 Last Admin: 09/14/17 22:10 Dose: 650 mg Amiodarone HCl (Cordarone) 200 mg PO QPM [facility] Last Admin: 09/14/17 20:55 Dose: 200 mg Calcium Acetate (Phoslo) 2,001 mg PO TIDCC [facility] Carvedilol (Coreg) 6.25 mg PO BIDCC [facility] Last Admin: 09/14/17 20:55 Dose: 6.25 mg Diltiazem HCl (Cardizem) 180 mg PO BID [facility] Last Admin: 09/14/17 20:55 Dose: 180 mg Piperacillin Sod/Tazobactam (Sod 2.25 gm/ Dextrose) 50 mls @ 100 mls/hr IV Q8H [facility] Last Admin: 09/15/17 03:36 Dose: 100 mls/hr Ibuprofen (Motrin) 400 mg PO Q6HP PRN PRN Reason: Pain Metoclopramide HCl (Reglan) 5 mg PO Q6HP PRN PRN Reason: Nausea Naloxone HCl (Narcan) 0.1 mg IV Q2MIN PRN PRN Reason: Opiate Reversal Ondansetron HCl (Zofran) 4 mg IV Q6HP PRN PRN Reason: Nausea And Vomiting Oxycodone HCl (Roxicodone) 20 mg PO Q4HP PRN PRN Reason: Pain Last Admin: 09/14/17 22:08 Dose: 10 mg Sodium Chloride (Saline Flush) 10 ml IV Q8 [facility] Last Admin: 09/15/17 04:52 Dose: 10 ml Torsemide (Demadex) 40 mg PO DAILY [facility] Vancomycin HCl (Vancomycin Per Pharmacy) 1 order IV UD [facility] Vitamin D (Vitamin D3) 1,000 unit PO DAILY [facility] Medical - PN: A/P - Time Spent With Patient Total time spent is greater than 50% in coordination of care (as documented) at patient's floor/unit and/or counseling patient: - Narrative A/P Narrative: A/P Healthcare associated pneumonia-treated with IV vancomycin and Zosyn day 2. Chest x-ray shows significant pneumonia on the left side, leukocytosis slightly worse today. Continue antibiotics. Await microbiology results. Acute hypoxic respiratory failure-patient may also have chronic hypoxia. Oxygen via nasal cannula presently on 3 L to maintain oxygen more than 90. Atrial fibrillation-rate controlled, continue medications, Chronic anticoagulation-due to atrial fibrillation, Supratherapeutic INR-no acute evidence of bleeding, given 5 mg p.o. vitamin K yesterday we will repeat her dose today. Transfuse as well as give FFP if acute bleed noted. Chronic right-sided pleural effusion-malignant pleural effusion drain in place will try to see if this can be connected to a suction bulb Lung cancer-patient plans to start chemotherapy I believe on the of this month. Awaiting paperwork to be completed End-stage renal disease-nephrology consulted for scheduled dialysis to have hemodialysis today. Elevated blood [id number] home blood pressure medications monitor blood pressure Chronic pain-continue home pain medication regimen. Anemia-anemia of chronic disease, hemoglobin is 7.3, she has had intermittent low values, no evidence of acute bleed at this point. Monitor closely transfuse if drops less than 7 DVT prophylaxis-patient is on Coumadin, supratherapeutic INR Patient wishes to be full code Renal diet Medical - PN: Qual - VTE Deep Vein Thrombosis/Pulmonary Embolism Present on Admission: No
[2017-09-15] MEDS ORDERED: PHYTONADIONE 5 MG in 0.9 % SODIUM CHLORIDE 50 ML PO ONE (11:46)
[2017-09-15] MEDS ORDERED: PHYTONADIONE 10 MG/ML AMPUL PO ONE (12:00)
[2017-09-15] MEDS: CALCIUM ACETATE 667 MG CAPSULE PO SCH ×3 (12:40→17:27)
[2017-09-15] MEDS: DILTIAZEM 30 MG TABLET PO SCH ×2 (13:25→21:32)
[2017-09-15] MEDS: VITAMIN D3 1,000 UNIT TABLET PO SCH (13:25)
[2017-09-15] MEDS: TORSEMIDE 10 MG TABLET PO SCH (13:26)
[2017-09-15] MEDS: CARVEDILOL 6.25 MG TABLET PO SCH ×2 (13:26→17:27)
[2017-09-15] MEDS: oxyCODONE HCL 5 MG TABLET PO PRN (13:39)
[2017-09-15] MEDS: ACETAMINOPHEN 325 MG TABLET PO PRN (13:40)
[2017-09-15] MEDS ORDERED: oxyCODONE HCL 5 MG TABLET PO PRN (14:27)
[2017-09-15] MEDS ORDERED: oxyCODONE HCL 5 MG TABLET PO ONE (19:14)
[2017-09-15] MEDS: AMIODARONE HCL 200 MG TABLET PO SCH (21:32)
[2017-09-16] MEDS: PIPERACILLIN SODIUM/TAZOBACTAM 2.25 GM in DEXTROSE 5% IN WATER 50 ML IV SCH ×3 (05:12→21:43)
[2017-09-16] MEDS: 0.9 % SODIUM CHLORIDE 10 ML SYRINGE IV SCH ×3 (05:12→21:41)
[2017-09-16 06:27] LABS: ALT/SGPT < 5 U/l (0-40); Albumin 2.8 gm/dL (3.2-5.2); Albumin/Globulin Ratio 0.8 (1.0-2.3); Alkaline Phosphatase 69 U/L (39-117); Bilirubin,Direct < 0.2 mg/dL (0.0-0.3); Blood Urea Nitrogen 31 mg/dl (8-23); Gamma Glutamyl Transpeptidase 21 U/L (5-36); Uric Acid 2.1 mg/dL (2.5-8.0)
[2017-09-16 06:28] LABS: Basophils # (Auto) 0 K/mcL (0.0-0.3); Basophils % (Auto) 0.3 % (0.0-2.0); Eosinophils # (Auto) 0.6 K/mcL (0.0-0.7); Eosinophils % (Auto) 4.5 % (0.0-7.0); Granulocytes % (Auto) 79.8 % (38.0-78.0); Lymphocytes # (Auto) 0.8 K/mcL (1.5-4.8); Lymphocytes % (Auto) 6.4 % (15.5-49.0); Mean Cell Volume 96.8 fL (80.0-100.0); Mean Corpuscular HGB Conc 33.7 g/dL (31.0-36.0); Mean Corpuscular Hemoglobin 32.6 pg (26.0-34.0); Monocytes # (Auto) 1.1 K/mcL (0.1-0.9); Platelet Count 350 K/mcL (140-440); RBC 2.19 M/mcL (4.00-5.20); Red Cell Distribution Width 16.3 % (11.5-14.5)
--- NOTE | 2017-09-16 07:33 | Nephrology Progress Note ---
Subjective Patient information: Note initiated : 09/16/17 at 7:30 am Stefany Chew is a [id number] female with end stage renal disease on chronic hemodialysis (through right arm AV fistula, at [facility], on TTS, followed by Dr Saldivar ), chronic anemia due to chronic kidney disease, secondary hyperparathyroidism, coronary artery disease by calcifications on CT, history of pericardial effusion s/p pericardial window, chronic atrial fibrillation on Coumadin anticoagulation, hypertension, hyperlipidemia, chronic obstructive pulmonary disease with tobacco dependence in remission, history of metastatic lung adenocarcinoma with right pleural metastasis and malignant right pleural effusion s/p robotic-assisted right lower lobectomy/mediastinal lymph node resection on 10/19/16 and 4 cycles of carboplatin/paclitaxel completed on 02/01/17 , presented to [facility] ED on 09/14/17 and admitted to [facility] for pneumonia. Chief Complaint: Shortness of breath. Principal diagnosis: End stage renal disease Interval history: Hemodialysis with 2400 ml UF on 09/15/17. Right malignant effusion drained on 09/15/17. Still on 5 L/min oxygen. Pertinent ROS: Feels better. Looks pale. On 5 L/min oxygen Objective - Vital Signs Vital signs: Vital Signs Temp Pulse Pulse Resp BP BP Pulse Ox 09/16/17 04:05 98.5 F 67 20 127/61 97 09/15/17 23:49 98.2 F 61 20 130/67 96 09/15/17 19:40 96 09/15/17 19:00 98.9 F 60 20 118/61 96 09/15/17 15:00 98.4 F 16 139/82 94 09/15/17 13:12 97 F 74 149/62 09/15/17 13:10 16 95 09/15/17 12:28 81 149/75 09/15/17 11:58 71 141/69 09/15/17 11:30 66 150/62 09/15/17 10:58 60 141/68 09/15/17 10:33 59 L 133/73 09/15/17 10:03 60 142/61 09/15/17 09:30 59 L 133/59 09/15/17 09:00 96.8 F L 66 125/59 09/15/17 08:00 98.2 F 16 131/76 90 Intake and Output 09/15/17 09/16/17 09/16/17 21:59 05:59 13:59 Intake Total 290 / 290 630 / 630 50 / 50 Output Total 150 / 150 Balance 140 / 140 630 / 630 50 / 50 Intake: IV 50 / 50 50 / 50 50 / 50 Zosyn 2.25 gm In Dextrose 5% in 50 / 50 50 / 50 50 / 50 Water 50 ml @ 100 mls/hr IV Q8H [facility] Rx#:[id number] Oral 240 / 240 580 / 580 Output: Other 150 / 150 Other: Meal Dinner Percent of Meal Consumed 75% Weight 183 lb Intake & Output: Intake & Output 09/15/17 09/16/17 09/16/17 21:59 05:59 13:59 Intake Total 290 / 290 630 / 630 50 / 50 Output Total 150 / 150 Balance 140 / 140 630 / 630 50 / 50 Weight 183 lb Intake: IV 50 / 50 50 / 50 50 / 50 Zosyn 2.25 gm In Dextrose 5% in 50 / 50 50 / 50 50 / 50 Water 50 ml @ 100 mls/hr IV Q8H [facility] Rx#:[id number] Oral 240 / 240 580 / 580 Output: Other 150 / 150 Other: Meal Dinner Percent of Meal Consumed 75% - General Appearance General appearance: appears started age, chronically ill EENT: mucous membranes moist Neck: supple Respiratory: course breath sounds Cardiology: normal S1, normal S2 Gastrointestinal: normoactive bowel sounds Integumentary: warm and dry Neurologic: no focal deficit Musculoskeletal: no cyanosis Psychiatric: mood/affect appropriate, cooperative - Lab 09/16/17 04:46 09/16/17 04:46 Most recent lab results Calcium 9.4 mg/dl (8.6-10.4) 09/16/17 04:46 Phosphorus 2.9 mg/dL (2.7-4.5) 09/16/17 04:46 Magnesium 1.9 mg/dL (1.6-2.5) 09/16/17 04:46 Assessment and Plan (1) ESRD (end stage renal disease) on dialysis Hemodialysis on Sunday then TTS. Status: Chronic Priority: Medium (2) Anemia due to end stage renal disease 2 units PRBC with dialysis on 09/17/17. Status: Chronic Priority: Medium
[2017-09-16] MEDS: TORSEMIDE 10 MG TABLET PO SCH (08:52)
[2017-09-16] MEDS: VITAMIN D3 1,000 UNIT TABLET PO SCH (08:52)
[2017-09-16] MEDS: CARVEDILOL 6.25 MG TABLET PO SCH ×2 (08:52→17:50)
[2017-09-16] MEDS: CALCIUM ACETATE 667 MG CAPSULE PO SCH ×3 (08:52→17:50)
--- NOTE | 2017-09-16 11:07 | Internal Med Progress Note ---
Medical - PN: Subj Patient information: Note initiated : 09/16/17 at 11:04 am Service Date, if different from initiated Date: [] Patient: Stefany hCew a 62 y/o F admitted on 09/14/17 for Pneumonia. Chief Complaint: [] Interval history: History of present illness: Ms. Chew is a 62 year old Female with history of end-stage renal disease she is on dialysis on Tuesdays and Saturdays, follows with Dr. Saldivar she also has a history of lung cancer and is going to undergo chemotherapy for same. The patient has been short of breath going on for the last 1 week. Shortness of breath has progressively been getting worse, she admits that during dialysis for the last couple of sessions her oxygen levels were low and she needed supplemental oxygen. Yesterday she was advised to go to the emergency room for further evaluation however she declined. The patient today noted that her shortness of breath was much worse. She therefore presented to [facility] for evaluation and management. In the emergency room there a chest x-ray was done which showed an infiltrate in the left lobe. She has also chronic effusion on the right hemothorax. No evidence of CHF reported. The patient's labs showed leukocytosis with a hemoglobin of 8.2 WBC 13.9 platelets 420. Left lites were stable, potassium 4.0 bicarbonate 27. BUN was 34 creatinine 4.9. VBG done showed a pH of 7.5. The [facility] did not have dialysis on Saturdays and therefore the patient was presented here at [facility] for further evaluation and treatment. The patient was admitted to medical floor for further management. The patient notes that she may have had some cough that is slightly worse than a chronic cough. She usually has chronic cough in the morning and over the week may be her cough is slightly worse. She admits to being more fatigued and more tired than usual. Otherwise she denies any headache, changes in vision hearing or difficulty in swallowing, she denies any acute chest pain, does admit to having shortness of breath, no wheezing, she has decreased effort tolerance. She has chronic nausea she had attributes this to inflammation of the bile duct and follows up with Dr. Esparza for same. She denies any vomiting she denies any constipation or diarrhea. She denies any acute joint pain joint swellings no new skin rashes no depression no anxiety. Denies any acute bleeding she denies any allergic reactions she denies any other acute concerns or complaint She wishes to be full code 09/15 Patient seen and examined no acute overnight events. Patient has no acute complaints. Patient had elevated INR, 5 mg of p.o. vitamin K given. Patient denies any acute bleed. Her hemoglobin has dropped to 7.3 this morning. INR has improved to 14. We will repeat another dose of vitamin K and monitor INR level. If the patient shows any evidence of bleeding will transfuse as well as give FFP. Chest x-ray shows pneumonia stable since yesterday on the left side. She has significant effusion on the right side which is chronic she has a drain in place on the right side which is placed by radiology at [facility]. She notes that around 70 cc of fluid was aspirated the last time. I have advised her to discuss this with the radiologist as there is a lot more fluid in the chest cavity than what is being presently drained. 09/16 Patient seen and examined had some pain yesterday which responded to increase in pain dosing. Patient's hemoglobin is stable. She denies any other acute concerns. Had hemodialysis yesterday. WBC is trending down. Remains on broad-spectrum antibiotics cultures are negative so far. Plan to work with physical therapy today If clinically improves consider discharge tomorrow with outpatient antibiotics Pertinent ROS: Denies headache, dizziness Denies chest pain, palpitations Denies cough or shortness of breath Denies abdominal pain, nausea or vomiting. The patient had right-sided chest pain yesterday however this has resolved today - Constitutional Vitals: Vital Signs Temp Pulse Resp BP Pulse Ox 98.7 F 67 18 132/66 96 09/16/17 08:00 09/16/17 04:05 09/16/17 08:00 09/16/17 08:00 09/16/17 08:00 Period Temp Pulse Resp BP Sys/Reid Pulse Ox Last 24 Hr 97 F-98.9 F 60-81 16-20 118-150/61-82 94-97 Intake and Output 09/15/17 09/16/17 09/16/17 21:59 05:59 13:59 Intake Total 290 / 290 630 / 630 50 / 50 Output Total 150 / 150 Balance 140 / 140 630 / 630 50 / 50 Weight 183 lb Intake & Output: Intake & Output 09/15/17 09/16/17 09/16/17 21:59 05:59 13:59 Intake Total 290 / 290 630 / 630 50 / 50 Output Total 150 / 150 Balance 140 / 140 630 / 630 50 / 50 Weight 183 lb Intake: IV 50 / 50 50 / 50 50 / 50 Zosyn 2.25 gm In Dextrose 5% in 50 / 50 50 / 50 50 / 50 Water 50 ml @ 100 mls/hr IV Q8H [facility] Rx#:[id number] Oral 240 / 240 580 / 580 Output: Other 150 / 150 Other: Meal Dinner Percent of Meal Consumed 75% Exam: Constitutional; Afebrile, cooperative, alert, not in distress. Eyes- No icterus, , No periorbital swelling Ears- Ext ear normal, hearing normal to conversation. Neck- Midline trachea, supple Respiratory system: Air entry decreased in the right side, mid and lower zones, she has no wheezing on the left side she is able to speak full sentences no accessory muscle use CVS- Rate rhythm irregular, S1,S2 heard, no gallop, no rub. 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 Medical - PN: Obj Da - Labs CBC & Chem 7: 09/16/17 04:46 09/16/17 04:46 Labs: Abnormal Lab Results 09/16/17 09/16/17 09/16/17 04:46 04:46 04:46 WBC 12.4 H RBC 2.19 L Hgb 7.2 L Hct 21.2 L RDW 16.3 H MPV 6.8 L Gran % 79.8 H Lymph % (Auto) 6.4 L Gran # 9.9 H Lymph # (Auto) 0.8 L [place] # (Auto) 1.1 H PT 20.7 H INR 1.8 H Chloride 91 L Carbon Dioxide 31 H BUN 31 H Creatinine 3.7 H Glucose 111 H Uric Acid 2.1 L Phosphorus Lactate Dehydrogenase 361 H Albumin 2.8 L Albumin/Globulin Ratio 0.8 L Triglycerides 152 H 09/15/17 09/15/17 09/15/17 04:27 04:27 04:27 WBC 14.4 H RBC 2.22 L Hgb 7.3 L Hct 21.6 L RDW 16.1 H MPV 6.7 L Gran % 85.7 H Lymph % (Auto) 5.4 L Gran # 12.3 H Lymph # (Auto) 0.8 L [place] # (Auto) PT 111.3 H INR 14.7 H* Chloride 90 L Carbon Dioxide BUN 42 H Creatinine 6.5 H* Glucose 113 H Uric Acid Phosphorus 5.0 H Lactate Dehydrogenase 395 H Albumin 3.0 L Albumin/Globulin Ratio 0.9 L Triglycerides 155 H 09/14/17 18:08 WBC RBC Hgb Hct RDW MPV Gran % Lymph % (Auto) Gran # Lymph # (Auto) [place] # (Auto) PT 127.4 H INR 17.4 H* Chloride Carbon Dioxide BUN Creatinine Glucose Uric Acid Phosphorus Lactate Dehydrogenase Albumin Albumin/Globulin Ratio Triglycerides Meds: Medications Acetaminophen (Tylenol) 650 mg PO Q6HP PRN PRN Reason: PAIN/FEVER > 101 Last Admin: 09/15/17 13:40 Dose: 650 mg Amiodarone HCl (Cordarone) 200 mg PO QPM [facility] Last Admin: 09/15/17 21:32 Dose: 200 mg Calcium Acetate (Phoslo) 2,001 mg PO TIDCC [facility] Last Admin: 09/16/17 08:52 Dose: 2,001 mg [facility] Last Admin: 09/16/17 08:52 Dose: 6.25 mg Diltiazem HCl (Cardizem) 180 mg PO BID [facility] Last Admin: 09/15/17 21:32 Dose: 180 mg Hydromorphone HCl (Dilaudid) 1 mg IV Q4HP PRN PRN Reason: PAIN LEVEL > 6 Piperacillin Sod/Tazobactam (Sod 2.25 gm/ Dextrose) 50 mls @ 100 mls/hr IV Q8H [facility] Last Infusion: 09/16/17 06:06 Dose: Infused Ibuprofen (Motrin) 400 mg PO Q6HP PRN PRN Reason: Pain Last Admin: 09/15/17 22:10 Dose: 400 mg Metoclopramide HCl (Reglan) 5 mg PO Q6HP PRN PRN Reason: Nausea Naloxone HCl (Narcan) 0.1 mg IV Q2MIN PRN PRN Reason: Opiate Reversal Ondansetron HCl (Zofran) 4 mg IV Q6HP PRN PRN Reason: Nausea And Vomiting Oxycodone HCl (Roxicodone) 10 - 20 mg PO Q4HP PRN PRN Reason: Pain Level 3-6 Sodium Chloride (Saline Flush) 10 ml IV Q8 [facility] Last Admin: 09/16/17 05:12 Dose: 10 ml Torsemide (Demadex) 40 mg PO DAILY [facility] Last Admin: 09/16/17 08:52 Dose: 40 mg Vancomycin HCl (Vancomycin Per Pharmacy) 1 order IV UD [facility] Vitamin D (Vitamin D3) 1,000 unit PO DAILY [facility] Last Admin: 09/16/17 08:52 Dose: 1,000 unit Warfarin Sodium (Coumadin Per Pharmacy) 1 order PO UD [facility] Warfarin Sodium (Coumadin) 2.5 mg PO ONCE@1400 ONE Stop: 09/16/17 14:01 Medical - PN: A/P - Time Spent With Patient Total time spent is greater than 50% in coordination of care (as documented) at patient's floor/unit and/or counseling patient: - Narrative A/P Narrative: A/P Healthcare associated pneumonia-treated with IV vancomycin and Zosyn day 3. Chest x-ray shows significant pneumonia on the left side, l leukocytosis not trending down. Micromanaging negative so far Acute hypoxic respiratory failure-patient may also have chronic hypoxia. Oxygen via nasal cannula presently on 5 L to maintain oxygen more than 90. Wean off oxygen as tolerated Atrial fibrillation-rate controlled, continue medications, Chronic anticoagulation-due to atrial fibrillation, Supratherapeutic INR-received vitamin K yesterday, INR is 1.8 today. Resume oral Coumadin as per pharmacy. No evidence of acute bleed for now. Hemoglobin was 7.3 has remained stable since yesterday Chronic right-sided pleural effusion-malignant pleural effusion drain in place will try to see if this can be connected to a suction bulb Lung cancer-patient plans to start chemotherapy I believe on the of this month. Awaiting paperwork to be completed End-stage renal disease-nephrology consulted, they are following. Patient had dialysis yesterday Elevated blood pressure-blood pressure stable. Continue home medications Chronic pain-continue home pain medication regimen. Anemia-anemia of chronic disease, hemoglobin is 7.3, stable, transfuse if drops less than 7. DVT prophylaxis-patient is on Coumadin, supratherapeutic INR Patient wishes to be full code Renal diet Medical - PN: Qual - VTE Deep Vein Thrombosis/Pulmonary Embolism Present on Admission: No
[2017-09-16] MEDS ORDERED: POLYETHYLENE GLYCOL 3350 17 GM PACKET PO ONE (11:19)
[2017-09-16] MEDS: DILTIAZEM 30 MG TABLET PO SCH ×2 (11:43→21:40)
[2017-09-16] MEDS: oxyCODONE HCL 5 MG TABLET PO PRN (11:44)
[2017-09-16] MEDS: ACETAMINOPHEN 325 MG TABLET PO PRN (11:48)
[2017-09-16] MEDS ORDERED: WARFARIN 2.5 MG TABLET PO ONE (14:00)
[2017-09-16] MEDS: ONDANSETRON 4 MG/2 ML VIAL IV PRN ×2 (16:44→22:36)
[2017-09-16] MEDS: AMIODARONE HCL 200 MG TABLET PO SCH (21:40)
[2017-09-16] MEDS: HYDROmorphone 2 MG/ML VIAL IV PRN (23:28)
[2017-09-17] MEDS ORDERED: 0.9 % SODIUM CHLORIDE 250 ML IV SCH (04:30)
[2017-09-17 05:02] LABS: Basophils # (Auto) 0 K/mcL (0.0-0.3); Basophils % (Auto) 0.3 % (0.0-2.0); Eosinophils # (Auto) 0.8 K/mcL (0.0-0.7); Eosinophils % (Auto) 7.2 % (0.0-7.0); Lymphocytes % (Auto) 9.5 % (15.5-49.0); Mean Cell Volume 98.4 fL (80.0-100.0); Mean Corpuscular HGB Conc 33.1 g/dL (31.0-36.0); Mean Corpuscular Hemoglobin 32.5 pg (26.0-34.0); Monocytes # (Auto) 0.9 K/mcL (0.1-0.9); Platelet Count 388 K/mcL (140-440); RBC 2.17 M/mcL (4.00-5.20); Red Cell Distribution Width 16.5 % (11.5-14.5)
[2017-09-17 05:28] LABS: Vancomycin,Random 11.7 ug/mL
[2017-09-17 05:50] LABS: ALT/SGPT < 5 U/l (0-40); Albumin 2.7 gm/dL (3.2-5.2); Albumin/Globulin Ratio 0.7 (1.0-2.3); Alkaline Phosphatase 85 U/L (39-117); Bilirubin,Direct < 0.2 mg/dL (0.0-0.3); Blood Urea Nitrogen 44 mg/dl (8-23); Gamma Glutamyl Transpeptidase 32 U/L (5-36); Uric Acid 3.6 mg/dL (2.5-8.0)
[2017-09-17] MEDS: PIPERACILLIN SODIUM/TAZOBACTAM 2.25 GM in DEXTROSE 5% IN WATER 50 ML IV SCH ×3 (06:12→22:16)
[2017-09-17] MEDS: 0.9 % SODIUM CHLORIDE 10 ML SYRINGE IV SCH ×3 (06:13→22:16)
--- NOTE | 2017-09-17 07:30 | Nephrology Progress Note ---
Subjective Patient information: Note initiated : 09/17/17 at 7:30 am Stefany Chew is a [id number] female with end stage renal disease on chronic hemodialysis (through right arm AV fistula, at [facility], on TTS, followed by Dr Saldivar ), chronic anemia due to chronic kidney disease, secondary hyperparathyroidism, coronary artery disease by calcifications on CT, history of pericardial effusion s/p pericardial window, chronic atrial fibrillation on Coumadin anticoagulation, hypertension, hyperlipidemia, chronic obstructive pulmonary disease with tobacco dependence in remission, history of metastatic lung adenocarcinoma with right pleural metastasis and malignant right pleural effusion s/p robotic-assisted right lower lobectomy/mediastinal lymph node resection on 10/19/16 and 4 cycles of carboplatin/paclitaxel completed on 02/01/17 , presented to [facility] ED on 09/14/17 and admitted to [facility] for pneumonia. Chief Complaint: Shortness of breath. Principal diagnosis: End stage renal disease Interval history: No significant events overnight. Pertinent ROS: Nausea and vomiting. Weakness. Shortness of breath. Pale. Objective - Vital Signs Vital signs: Vital Signs Temp Pulse Resp BP Pulse Ox 09/17/17 04:02 97.8 F 67 18 130/66 96 09/16/17 23:21 97.0 F 66 16 130/72 96 09/16/17 20:58 98.0 F 64 18 145/72 98 09/16/17 20:00 98 09/16/17 15:01 96.5 F L 16 112/68 98 09/16/17 11:38 97.9 F 16 102/50 96 09/16/17 08:00 98.7 F 18 132/66 96 Intake and Output 09/16/17 09/17/17 09/17/17 21:59 05:59 13:59 Intake Total 490 / 490 920 / 920 Output Total 200 / 200 300 / 300 Balance 290 / 290 620 / 620 Intake: IV 50 / 50 50 / 50 Zosyn 2.25 gm In Dextrose 5% in 50 / 50 50 / 50 Water 50 ml @ 100 mls/hr IV Q8H [facility] Rx#:[id number] Oral 440 / 440 870 / 870 Output: Emesis 200 / 200 300 / 300 Other: Meal Dinner Percent of Meal Consumed 100% Weight 184 lb 4.8 oz Intake & Output: Intake & Output 09/16/17 09/17/17 09/17/17 21:59 05:59 13:59 Intake Total 490 / 490 920 / 920 Output Total 200 / 200 300 / 300 Balance 290 / 290 620 / 620 Weight 184 lb 4.8 oz Intake: IV 50 / 50 50 / 50 Zosyn 2.25 gm In Dextrose 5% in 50 / 50 50 / 50 Water 50 ml @ 100 mls/hr IV Q8H [facility] Rx#:[id number] Oral 440 / 440 870 / 870 Output: Emesis 200 / 200 300 / 300 Other: Meal Dinner Percent of Meal Consumed 100% - General Appearance General appearance: appears started age, fatigue EENT: mucous membranes moist, hearing intact, vision intact Neck: supple Respiratory: rales Cardiology: normal S1, normal S2 Gastrointestinal: no tenderness Integumentary: warm and dry, ecchymotic Neurologic: no focal deficit Musculoskeletal: no erythema, no cyanosis Psychiatric: mood/affect appropriate, cooperative - Lab 09/17/17 04:05 09/17/17 04:05 Most recent lab results Calcium 10.3 mg/dl (8.6-10.4) 09/17/17 04:05 Phosphorus 3.3 mg/dL (2.7-4.5) 09/17/17 04:05 Magnesium 1.9 mg/dL (1.6-2.5) 09/17/17 04:05 Assessment and Plan (1) ESRD (end stage renal disease) on dialysis Hemodialysis today then TTS. Status: Chronic Priority: Medium (2) Anemia due to end stage renal disease 2 units PRBC with dialysis today. Status: Chronic Priority: Medium
[2017-09-17] MEDS: ONDANSETRON 4 MG/2 ML VIAL IV PRN (08:21)
--- NOTE | 2017-09-17 10:27 | Internal Med Progress Note ---
Medical - PN: Subj Patient information: Note initiated : 09/17/17 at 10:25 am Service Date, if different from initiated Date: [] Patient: Stefany Chew a 62 y/o F admitted on 09/14/17 for Pneumonia. Chief Complaint: [] Interval history: History of present illness: Ms. Chew is a 62 year old Female with history of end-stage renal disease she is on dialysis on Tuesdays and Saturdays, follows with Dr. Saldivar she also has a history of lung cancer and is going to undergo chemotherapy for same. The patient has been short of breath going on for the last 1 week. Shortness of breath has progressively been getting worse, she admits that during dialysis for the last couple of sessions her oxygen levels were low and she needed supplemental oxygen. Yesterday she was advised to go to the emergency room for further evaluation however she declined. The patient today noted that her shortness of breath was much worse. She therefore presented to [facility] for evaluation and management. In the emergency room there a chest x-ray was done which showed an infiltrate in the left lobe. She has also chronic effusion on the right hemothorax. No evidence of CHF reported. The patient's labs showed leukocytosis with a hemoglobin of 8.2 WBC 13.9 platelets 420. Left lites were stable, potassium 4.0 bicarbonate 27. BUN was 34 creatinine 4.9. VBG done showed a pH of 7.5. The [facility] did not have dialysis on Saturdays and therefore the patient was presented here at [facility] for further evaluation and treatment. The patient was admitted to medical floor for further management. The patient notes that she may have had some cough that is slightly worse than a chronic cough. She usually has chronic cough in the morning and over the week may be her cough is slightly worse. She admits to being more fatigued and more tired than usual. Otherwise she denies any headache, changes in vision hearing or difficulty in swallowing, she denies any acute chest pain, does admit to having shortness of breath, no wheezing, she has decreased effort tolerance. She has chronic nausea she had attributes this to inflammation of the bile duct and follows up with Dr. Esparza for same. She denies any vomiting she denies any constipation or diarrhea. She denies any acute joint pain joint swellings no new skin rashes no depression no anxiety. Denies any acute bleeding she denies any allergic reactions she denies any other acute concerns or complaint She wishes to be full code 09/15 Patient seen and examined no acute overnight events. Patient has no acute complaints. Patient had elevated INR, 5 mg of p.o. vitamin K given. Patient denies any acute bleed. Her hemoglobin has dropped to 7.3 this morning. INR has improved to 14. We will repeat another dose of vitamin K and monitor INR level. If the patient shows any evidence of bleeding will transfuse as well as give FFP. Chest x-ray shows pneumonia stable since yesterday on the left side. She has significant effusion on the right side which is chronic she has a drain in place on the right side which is placed by radiology at [facility]. She notes that around 70 cc of fluid was aspirated the last time. I have advised her to discuss this with the radiologist as there is a lot more fluid in the chest cavity than what is being presently drained. 09/16 Patient seen and examined had some pain yesterday which responded to increase in pain dosing. Patient's hemoglobin is stable. She denies any other acute concerns. Had hemodialysis yesterday. WBC is trending down. Remains on broad-spectrum antibiotics cultures are negative so far. Plan to work with physical therapy today If clinically improves consider discharge tomorrow with outpatient antibiotics 09/17 Patient seen and examined no acute overnight events. Since last night she has been having nausea. She attributes that to constipation as well as use of MiraLAX. We will try to use suppositories to help with constipation and give some lactulose. Patient also thinks that the low hemoglobin is contributing to her nausea. The patient will be getting dialysis today and 2 units of RBC transfused during dialysis according to nephrology. Hemoglobin this morning is 7.1. Patient otherwise denies any other acute complaints or concerns. Pain is reasonably controlled. If the patient's nausea does not improve we will consider getting a hepatobiliary ultrasound Pertinent ROS: Denies headache, dizziness Denies chest pain, palpitations Denies cough or shortness of breath Denies abdominal pain, nausea present - Constitutional Vitals: Vital Signs Temp Pulse Resp BP Pulse Ox 98.0 F 70 12 132/71 96 09/17/17 07:38 09/17/17 07:38 09/17/17 07:38 09/17/17 07:38 09/17/17 07:38 Period Temp Pulse Resp BP Sys/Reid Pulse Ox Last 24 Hr 96.5 F-98.0 F 64-70 12-18 102-145/50-72 96-98 Intake and Output 09/16/17 09/17/17 09/17/17 21:59 05:59 13:59 Intake Total 490 / 490 920 / 920 Output Total 200 / 200 300 / 300 400 / 400 Balance 290 / 290 620 / 620 -400 / -400 Weight 184 lb 4.8 oz Intake & Output: Intake & Output 09/16/17 09/17/17 09/17/17 21:59 05:59 13:59 Intake Total 490 / 490 920 / 920 Output Total 200 / 200 300 / 300 400 / 400 Balance 290 / 290 620 / 620 -400 / -400 Weight 184 lb 4.8 oz Intake: IV 50 / 50 50 / 50 Zosyn 2.25 gm In Dextrose 5% in 50 / 50 50 / 50 Water 50 ml @ 100 mls/hr IV Q8H [facility] Rx#:[id number] Oral 440 / 440 870 / 870 Output: Emesis 200 / 200 300 / 300 400 / 400 Other: Meal Dinner Percent of Meal Consumed 100% Exam: Constitutional; Afebrile, cooperative, alert, not in distress. Eyes- No icterus, , No periorbital swelling Ears- Ext ear normal, hearing normal to conversation. Neck- Midline trachea, supple Respiratory system: Air Entry reduced on right side, left side is okay. Speaking full sentences no accessory muscle use CVS- Rate rhythm regular, S1,S2 heard, no gallop, no rub. Abdomen- Soft nontender abdomen, no organomegaly, no tenderness, no guarding or rigidity, Lackey sign negative RESEARCH CLERK- AOOx3, moving all extremities, no gross focal deficit noted. Medical - PN: Obj Da - Labs CBC & Chem 7: 09/17/17 04:05 09/17/17 04:05 Labs: Abnormal Lab Results 09/17/17 09/17/17 09/17/17 04:05 04:05 04:05 WBC RBC 2.17 L Hgb 7.1 L Hct 21.4 L RDW 16.5 H MPV 6.7 L Gran % Lymph % (Auto) 9.5 L Eos % (Auto) 7.2 H Gran # 8.1 H Lymph # (Auto) 1.0 L [place] # (Auto) Eos # (Auto) 0.8 H PT 20.8 H INR 1.8 H Sodium 132 L Chloride 87 L Carbon Dioxide 35 H BUN 44 H Creatinine 5.4 H* Glucose Uric Acid Phosphorus Lactate Dehydrogenase 310 H Albumin 2.7 L Globulin 3.8 H Albumin/Globulin Ratio 0.7 L Triglycerides 172 H 09/16/17 09/16/17 09/16/17 04:46 04:46 04:46 WBC 12.4 H RBC 2.19 L Hgb 7.2 L Hct 21.2 L RDW 16.3 H MPV 6.8 L Gran % 79.8 H Lymph % (Auto) 6.4 L Eos % (Auto) Gran # 9.9 H Lymph # (Auto) 0.8 L [place] # (Auto) 1.1 H Eos # (Auto) PT 20.7 H INR 1.8 H Sodium Chloride 91 L Carbon Dioxide 31 H BUN 31 H Creatinine 3.7 H Glucose 111 H Uric Acid 2.1 L Phosphorus Lactate Dehydrogenase 361 H Albumin 2.8 L Globulin Albumin/Globulin Ratio 0.8 L Triglycerides 152 H 09/15/17 09/15/17 09/15/17 04:27 04:27 04:27 WBC 14.4 H RBC 2.22 L Hgb 7.3 L Hct 21.6 L RDW 16.1 H MPV 6.7 L Gran % 85.7 H Lymph % (Auto) 5.4 L Eos % (Auto) Gran # 12.3 H Lymph # (Auto) 0.8 L [place] # (Auto) Eos # (Auto) PT 111.3 H INR 14.7 H* Sodium Chloride 90 L Carbon Dioxide BUN 42 H Creatinine 6.5 H* Glucose 113 H Uric Acid Phosphorus 5.0 H Lactate Dehydrogenase 395 H Albumin 3.0 L Globulin Albumin/Globulin Ratio 0.9 L Triglycerides 155 H 09/14/17 18:08 WBC RBC Hgb Hct RDW MPV Gran % Lymph % (Auto) Eos % (Auto) Gran # Lymph # (Auto) [place] # (Auto) Eos # (Auto) PT 127.4 H INR 17.4 H* Sodium Chloride Carbon Dioxide BUN Creatinine Glucose Uric Acid Phosphorus Lactate Dehydrogenase Albumin Globulin Albumin/Globulin Ratio Triglycerides Meds: Medications Acetaminophen (Tylenol) 650 mg PO Q6HP PRN PRN Reason: PAIN/FEVER > 101 Last Admin: 09/16/17 11:48 Dose: 650 mg Amiodarone HCl (Cordarone) 200 mg PO QPM [facility] Last Admin: 09/16/17 21:40 Dose: 200 mg Calcium Acetate (Phoslo) 2,001 mg PO TIDCC [facility] Last Admin: 09/16/17 17:50 Dose: 2,001 mg Carvedilol (Coreg) 6.25 mg PO BIDCC [facility] Last Admin: 09/16/17 17:50 Dose: 6.25 mg Diltiazem HCl (Cardizem) 180 mg PO BID [facility] Last Admin: 09/16/17 21:40 Dose: 180 mg Hydromorphone HCl (Dilaudid) 1 mg IV Q4HP PRN PRN Reason: PAIN LEVEL > 6 Last Admin: 09/16/17 23:28 Dose: 1 mg Piperacillin Sod/Tazobactam (Sod 2.25 gm/ Dextrose) 50 mls @ 100 mls/hr IV Q8H [facility] Last Admin: 09/17/17 06:12 Dose: 100 mls/hr Sodium Chloride (Sodium Chloride 0.9%) 250 mls @ 20 mls/hr IV .[id number] [facility] Stop: 09/17/17 16:59 Vancomycin HCl 1,000 mg/ (Sodium Chloride) 250 mls @ 250 mls/hr IV ONCE ONE Stop: 09/17/17 15:59 Ibuprofen (Motrin) 400 mg PO Q6HP PRN PRN Reason: Pain Last Admin: 09/15/17 22:10 Dose: 400 mg Metoclopramide HCl (Reglan) 5 mg PO Q6HP PRN PRN Reason: Nausea Naloxone HCl (Narcan) 0.1 mg IV Q2MIN PRN PRN Reason: Opiate Reversal Ondansetron HCl (Zofran) 4 mg IV Q6HP PRN PRN Reason: Nausea And Vomiting Last Admin: 09/17/17 08:21 Dose: 4 mg Oxycodone HCl (Roxicodone) 10 - 20 mg PO Q4HP PRN PRN Reason: Pain Level 3-6 Last Admin: 09/16/17 11:44 Dose: 10 mg Sodium Chloride (Saline Flush) 10 ml IV Q8 [facility] Last Admin: 09/17/17 06:13 Dose: 10 ml Torsemide (Demadex) 40 mg PO DAILY [facility] Last Admin: 09/16/17 08:52 Dose: 40 mg Vancomycin HCl (Vancomycin Per Pharmacy) 1 order IV UD [facility] Vitamin D (Vitamin D3) 1,000 unit PO DAILY [facility] Last Admin: 09/16/17 08:52 Dose: 1,000 unit Warfarin Sodium (Coumadin Per Pharmacy) 1 order PO UD [facility] Medical - PN: A/P - Time Spent With Patient Total time spent is greater than 50% in coordination of care (as documented) at patient's floor/unit and/or counseling patient: - Narrative A/P Narrative: A/P Healthcare associated pneumonia-treated with IV vancomycin and Zosyn day 4. Chest x-ray shows significant pneumonia on the left side, l leukocytosis not trending down. Micromanaging negative so far Acute hypoxic respiratory failure-patient may also have chronic hypoxia. Oxygen via nasal cannula presently on 5 L to maintain oxygen more than 90. Wean off oxygen as tolerated Nausea: Zofran and Reglan as needed for now. Monitor if symptoms do not resolve consider getting an ultrasound Constipation: MiraLAX given yesterday which triggered the nausea, give lactulose , consider suppositories to help with bowel movements Atrial fibrillation-rate controlled, continue medications, Chronic anticoagulation-due to atrial fibrillation, Supratherapeutic INR-received vitamin K yesterday, INR is 1.8 today. Resume oral Coumadin as per pharmacy. No evidence of acute bleed for now. Chronic right-sided pleural effusion-malignant pleural effusion drain in place Lung cancer-patient plans to start chemotherapy I believe on the of this month. Awaiting paperwork to be completed End-stage renal disease-nephrology consulted, they are following. Patient had dialysis yesterday Elevated blood pressure-blood pressure stable. Continue home medications Chronic pain-continue home pain medication regimen. Anemia-anemia of chronic disease, hemoglobin is 7.1, nephrology plans to2 units today DVT prophylaxis-patient is on Coumadin, supratherapeutic INR Patient wishes to be full code Renal diet Medical - PN: Qual - VTE Deep Vein Thrombosis/Pulmonary Embolism Present on Admission: No
[2017-09-17] MEDS ORDERED: BISACODYL 10 MG SUPP.RECT PR ONE (10:31)
[2017-09-17] MEDS ORDERED: LACTULOSE 20 GM/30 ML ORAL.SOL PO ONE (10:31)
[2017-09-17] MEDS: HYDROmorphone 2 MG/ML VIAL IV PRN ×2 (12:56→22:16)
[2017-09-17] MEDS ORDERED: WARFARIN 2.5 MG TABLET PO ONE (14:00)
[2017-09-17] MEDS ORDERED: VANCOMYCIN 1,000 MG in 0.9 % SODIUM CHLORIDE 250 ML IV ONE (15:00)
[2017-09-17] MEDS: CARVEDILOL 6.25 MG TABLET PO SCH ×2 (17:20→18:13)
[2017-09-17] MEDS: CALCIUM ACETATE 667 MG CAPSULE PO SCH ×2 (17:21→18:12)
[2017-09-17] MEDS: DILTIAZEM 30 MG TABLET PO SCH ×2 (17:21→20:15)
[2017-09-17] MEDS: TORSEMIDE 10 MG TABLET PO SCH (17:21)
[2017-09-17] MEDS: VITAMIN D3 1,000 UNIT TABLET PO SCH (17:22)
[2017-09-17] MEDS ORDERED: BISACODYL 5 MG TABLET PO ONE (17:43)
[2017-09-17] MEDS: AMIODARONE HCL 200 MG TABLET PO SCH (20:15)
[2017-09-17] MEDS: ACETAMINOPHEN 325 MG TABLET PO PRN (20:15)
[2017-09-17] MEDS: oxyCODONE HCL 5 MG TABLET PO PRN (20:16)
[2017-09-18] MEDS: PIPERACILLIN SODIUM/TAZOBACTAM 2.25 GM in DEXTROSE 5% IN WATER 50 ML IV SCH ×3 (05:30→22:06)
[2017-09-18] MEDS: 0.9 % SODIUM CHLORIDE 10 ML SYRINGE IV SCH ×3 (05:30→21:56)
[2017-09-18 06:43] LABS: Basophils # (Auto) 0 K/mcL (0.0-0.3); Basophils % (Auto) 0.2 % (0.0-2.0); Eosinophils # (Auto) 0.7 K/mcL (0.0-0.7); Eosinophils % (Auto) 7.9 % (0.0-7.0); Granulocytes % (Auto) 70.1 % (38.0-78.0); Lymphocytes # (Auto) 0.8 K/mcL (1.5-4.8); Lymphocytes % (Auto) 9.4 % (15.5-49.0); Mean Cell Volume 94.8 fL (80.0-100.0); Mean Corpuscular HGB Conc 34.2 g/dL (31.0-36.0); Mean Corpuscular Hemoglobin 32.4 pg (26.0-34.0); Monocytes # (Auto) 1.1 K/mcL (0.1-0.9); Monocytes % (Auto) 12.4 % (1.0-12.0); Platelet Count 382 K/mcL (140-440); Red Cell Distribution Width 17.6 % (11.5-14.5)
--- NOTE | 2017-09-18 06:59 | Nephrology Progress Note ---
Subjective Patient information: Note initiated : 09/18/17 at 6:57 am Stefany Chew is a [id number] female with end stage renal disease on chronic hemodialysis (through right arm AV fistula, at [facility], on TTS, followed by Dr Saldivar ), chronic anemia due to chronic kidney disease, secondary hyperparathyroidism, coronary artery disease by calcifications on CT, history of pericardial effusion s/p pericardial window, chronic atrial fibrillation on Coumadin anticoagulation, hypertension, hyperlipidemia, chronic obstructive pulmonary disease with tobacco dependence in remission, history of metastatic lung adenocarcinoma with right pleural metastasis and malignant right pleural effusion s/p robotic-assisted right lower lobectomy/mediastinal lymph node resection on 10/19/16 and 4 cycles of carboplatin/paclitaxel completed on 02/01/17 , presented to [facility] on 09/14/17 and admitted to [facility] for pneumonia. Chief Complaint: Shortness of breath. Principal diagnosis: End stage renal disease Interval history: Hemodialysis with 2 units PRBC yesterday. Pertinent ROS: Weakness. Shortness of breath. On 3 L/min oxygen. Objective - Vital Signs Vital signs: Vital Signs Temp Pulse Pulse Pulse Resp BP BP 09/18/17 06:33 97.5 F 18 120/68 09/18/17 03:01 97.7 F 64 20 127/60 09/18/17 00:00 97.3 F 68 20 112/58 09/17/17 22:19 09/17/17 20:00 97.7 F 64 20 122/52 09/17/17 16:00 99.5 F H 77 12 114/56 09/17/17 14:13 96.6 F L 75 127/57 09/17/17 13:45 69 124/57 09/17/17 13:17 65 118/45 09/17/17 12:51 96.5 F L 70 131/63 09/17/17 12:15 67 140/85 09/17/17 11:45 68 138/62 09/17/17 11:44 97.9 F 68 12 138/62 09/17/17 11:14 96.5 F L 66 132/58 09/17/17 10:49 66 133/59 09/17/17 10:20 98.1 F 71 128/67 09/17/17 07:38 98.0 F 70 12 132/71 Pulse Ox 09/18/17 06:33 97 09/18/17 03:01 97 09/18/17 00:00 97 09/17/17 22:19 97 09/17/17 20:00 96 09/17/17 16:00 96 09/17/17 14:13 09/17/17 13:45 09/17/17 13:17 09/17/17 12:51 09/17/17 12:15 09/17/17 11:45 09/17/17 11:44 98 09/17/17 11:14 09/17/17 10:49 09/17/17 10:20 09/17/17 07:38 96 Intake and Output 09/17/17 09/18/17 09/18/17 21:59 05:59 13:59 Intake Total 1110 / 1110 400 / 400 Output Total 3000 / 3000 Balance -1890 / -1890 400 / 400 Intake: IV 300 / 300 50 / 50 Zosyn 2.25 gm In Dextrose 5% in 50 / 50 50 / 50 Water 50 ml @ 100 mls/hr IV Q8H [facility] Rx#:[id number] Vancomycin 1,000 mg In Sodium 250 / 250 Chloride 0.9% 250 ml @ 250 mls/ hr IV ONCE ONE Rx#:[id number] Oral 480 / 480 350 / 350 Blood Product 330 / 330 Output: Hemodialysis UF 3000 / 3000 Other: Meal Dinner Percent of Meal Consumed 75% Feeding Ability Independent Weight 183 lb Intake & Output: Intake & Output 09/17/17 09/18/17 09/18/17 21:59 05:59 13:59 Intake Total 1110 / 1110 400 / 400 Output Total 3000 / 3000 Balance -1890 / -1890 400 / 400 Weight 183 lb Intake: IV 300 / 300 50 / 50 Zosyn 2.25 gm In Dextrose 5% in 50 / 50 50 / 50 Water 50 ml @ 100 mls/hr IV Q8H [facility] Rx#:[id number] Vancomycin 1,000 mg In Sodium 250 / 250 Chloride 0.9% 250 ml @ 250 mls/ hr IV ONCE ONE Rx#:[id number] Oral 480 / 480 350 / 350 Blood Product 330 / 330 Output: Hemodialysis UF 3000 / 3000 Other: Meal Dinner Percent of Meal Consumed 75% Feeding Ability Independent - General Appearance General appearance: appears started age, fatigue EENT: mucous membranes moist, hearing intact, vision intact Neck: supple Respiratory: rales Cardiology: no edema Gastrointestinal: no tenderness Integumentary: no rash, warm and dry Neurologic: no focal deficit Musculoskeletal: no erythema, no cyanosis Psychiatric: mood/affect appropriate, cooperative - Lab 09/18/17 04:55 09/18/17 04:55 Most recent lab results Calcium 10.3 mg/dl (8.6-10.4) 09/17/17 04:05 Phosphorus 3.3 mg/dL (2.7-4.5) 09/17/17 04:05 Magnesium 1.9 mg/dL (1.6-2.5) 09/17/17 04:05 Assessment and Plan (1) ESRD (end stage renal disease) on dialysis Hemodialysis on TTS. Status: Chronic Priority: Medium (2) Anemia due to end stage renal disease s/p 2 units PRBC. Status: Chronic Priority: Medium
[2017-09-18 07:04] LABS: ALT/SGPT 6 U/l (0-40); Albumin 2.8 gm/dL (3.2-5.2); Albumin/Globulin Ratio 0.8 (1.0-2.3); Alkaline Phosphatase 116 U/L (39-117); Bilirubin,Direct < 0.2 mg/dL (0.0-0.3); Blood Urea Nitrogen 24 mg/dl (8-23); Gamma Glutamyl Transpeptidase 70 U/L (5-36); Uric Acid 2.9 mg/dL (2.5-8.0)
--- NOTE | 2017-09-18 08:27 | XRay Report ---
CLINICAL INFORMATION: Follow pneumonia COMPARISON: Multiple chest x-rays dating back to 05/11/2017. FINDINGS: Moderate cardiomegaly is unchanged. Mediastinum is unremarkable. Large right pleural effusion resulting in compressive atelectasis of the entire right middle and lower lobes. A moderate sized loculated component and the right apex is unchanged. Chest tube overlies the posterior lower thoracic region - the exact position chest tube tip is indeterminate Moderate vague the alveolar infiltrate in the left mid and upper lung show modest improvement in aeration when compared to the most recent study three days ago. On prior study, there was a left basilar infiltrated component which is now resolved. IMPRESSION: 1. Large right pleural effusion with moderate loculated component in the right apex unchanged. Right chest tube overlies the posterior lower lobe region - exact position of the distal chest tube is indeterminate - consider chest CT for localization 2. Large right pleural effusion resulting in complete compressive atelectasis of the right middle and lower lobes. Moderate loculated component the right apex. No change in pleural effusion volume from x-ray four days ago 3. Moderate alveolar infiltrate in the left mid and upper lung - improved. A left basilar pneumonia has resolved since comparison x-ray four days ago 4. Moderate stable cardiomegaly - no vascular congestion to suggest CHF Interpreted and Authenticated by: Leonard Rico 09/18/17
[2017-09-18] MEDS: CALCIUM ACETATE 667 MG CAPSULE PO SCH ×3 (09:28→16:31)
[2017-09-18] MEDS: DILTIAZEM 30 MG TABLET PO SCH ×2 (09:30→21:55)
[2017-09-18] MEDS: TORSEMIDE 10 MG TABLET PO SCH (09:30)
[2017-09-18] MEDS: VITAMIN D3 1,000 UNIT TABLET PO SCH (09:30)
[2017-09-18] MEDS: CARVEDILOL 6.25 MG TABLET PO SCH ×2 (09:30→16:31)
--- NOTE | 2017-09-18 09:36 | Cat Scan Report ---
CLINICAL INFORMATION: Left lung pneumonia. Chronic right pleural effusion - evaluate chest tube position. COMPARISON: Chest CT from 02/26/2017 and 08/13/2017 TECHNIQUE: 0.625 mm axial slices were obtained from the lung apices through the bases without intravenous contrast. 2.5 mm Sagittal, coronal and axial reformatted images were processed and reviewed at bone, lung and soft tissue windows. 7 mm axial MIP images were also reconstructed to optimize pulmonary nodule detection.The exam was performed using radiation dose optimization techniques including, but not limited to, automated exposure control, adjustment of the mA and/or kV according to patient size and use of iterative reconstruction technique. FINDINGS: Large chronic right pleural effusion, predominantly in the lower thorax, with likely component in the anterior apical region is decreased in volume slightly since the prechest tube CT 08/13/2017. The right chest tube enters the lateral right eighth intercostal space traversing the fluid medially before ascending : The tube tip is in posterior costophrenic sulcus. No evidence of diaphragm perforation - the tube is in satisfactory position without evidence for kinking or breakage. There is mild thickening of both the visceral and parietal pleura indicating effusion is likely chronic. No evidence of left pleural effusion. Right lower lobectomy changes noted. There is subtotal atelectasis of the right middle lobe and subsegmental atelectasis in the posterior right lower lobe related to the effusion. A large vague alveolar infiltrate is seen throughout the left upper lobe predominantly in a peribronchial vascular distribution. There are moderate size groundglass infiltrates in the lingula and the peribronchial vascular left lower lobe. Mediastinal windows show the noncontrasted thoracic aorta is unremarkable. The heart is moderately enlarged with heavy calcific plaque coronary arteries. Central pulmonary arteries are enlarged: the main pulmonary artery diameter is 3.7 cm just above pulmonary hypertension. This is unchanged. There are few benign reactive lymph nodes in the lower mediastinum and both hilar region which are unchanged. Esophagus is grossly normal. The right lobe of thyroid is been surgically removed - the left thyroid is slightly enlarged inhomogeneous but unchanged. Images through the upper abdomen show moderate bilateral renal atrophy. There are cysts on the right kidney ranging up to 2.6 cm. The intrahepatic and common bile ducts are moderately dilated with a CBD 16 mm. this is unchanged. Bone windows show no evidence of metastatic disease or other significant focal osseous lesion IMPRESSION: 1. Large chronic right pleural effusion with moderate loculated component in the anterior apex. Right-sided chest tube is located in satisfactory position without evidence of CT or breakage. The tube tip is in the posterior lateral costophrenic sulcus. Patient may benefit from TPA instillation to enhanced pleural drainage 2. Large alveolar infiltrate throughout the left upper lobe and moderate groundglass infiltrates in the lingula and peribronchial vascular left lower lobe. Plain film review shows left-sided infiltrates are gradually improving. No evidence of left pleural effusion. 3. Right lower lobectomy changes. Consolidation atelectasis of the entire right middle lobe and subsegmental atelectasis in the peripheral right upper lobe related to the volume of the effusion 4. Mild enlargement of the central pulmonary arteries compatible pulmonary hypertension - stable 5. Moderate cardiomegaly with heavy calcific plaque in the coronary arteries - stable 6. Moderate bilateral renal atrophy 7. Moderate dilatation of the common bile duct stable presumably related to post cholecystomy papillary stenosis. Interpreted and Authenticated by: Leonard Rico 09/18/17
[2017-09-18] MEDS ORDERED: ALTEPLASE 2 MG VIAL IJ ONE (09:45)
--- NOTE | 2017-09-18 10:27 | Internal Med Progress Note ---
Medical - PN: Subj Patient information: Note initiated : 09/18/17 at 10:25 am Service Date, if different from initiated Date: [] Patient: Stefany Chew a 62 y/o F admitted on 09/14/17 for Pneumonia. Chief Complaint: [] Interval history: History of present illness: Ms. Chew is a 62 year old Female with history of end-stage renal disease she is on dialysis on Tuesdays and Saturdays, follows with Dr. Saldivar she also has a history of lung cancer and is going to undergo chemotherapy for same. The patient has been short of breath going on for the last 1 week. Shortness of breath has progressively been getting worse, she admits that during dialysis for the last couple of sessions her oxygen levels were low and she needed supplemental oxygen. Yesterday she was advised to go to the emergency room for further evaluation however she declined. The patient today noted that her shortness of breath was much worse. She therefore presented to [facility] for evaluation and management. In the emergency room there a chest x-ray was done which showed an infiltrate in the left lobe. She has also chronic effusion on the right hemothorax. No evidence of CHF reported. The patient's labs showed leukocytosis with a hemoglobin of 8.2 WBC 13.9 platelets 420. Left lites were stable, potassium 4.0 bicarbonate 27. BUN was 34 creatinine 4.9. VBG done showed a pH of 7.5. The [facility] did not have dialysis on Saturdays and therefore the patient was presented here at [facility] for further evaluation and treatment. The patient was admitted to medical floor for further management. The patient notes that she may have had some cough that is slightly worse than a chronic cough. She usually has chronic cough in the morning and over the week may be her cough is slightly worse. She admits to being more fatigued and more tired than usual. Otherwise she denies any headache, changes in vision hearing or difficulty in swallowing, she denies any acute chest pain, does admit to having shortness of breath, no wheezing, she has decreased effort tolerance. She has chronic nausea she had attributes this to inflammation of the bile duct and follows up with Dr. Esparza for same. She denies any vomiting she denies any constipation or diarrhea. She denies any acute joint pain joint swellings no new skin rashes no depression no anxiety. Denies any acute bleeding she denies any allergic reactions she denies any other acute concerns or complaint She wishes to be full code 09/15 Patient seen and examined no acute overnight events. Patient has no acute complaints. Patient had elevated INR, 5 mg of p.o. vitamin K given. Patient denies any acute bleed. Her hemoglobin has dropped to 7.3 this morning. INR has improved to 14. We will repeat another dose of vitamin K and monitor INR level. If the patient shows any evidence of bleeding will transfuse as well as give FFP. Chest x-ray shows pneumonia stable since yesterday on the left side. She has significant effusion on the right side which is chronic she has a drain in place on the right side which is placed by radiology at [facility]. She notes that around 70 cc of fluid was aspirated the last time. I have advised her to discuss this with the radiologist as there is a lot more fluid in the chest cavity than what is being presently drained. 09/16 Patient seen and examined had some pain yesterday which responded to increase in pain dosing. Patient's hemoglobin is stable. She denies any other acute concerns. Had hemodialysis yesterday. WBC is trending down. Remains on broad-spectrum antibiotics cultures are negative so far. Plan to work with physical therapy today If clinically improves consider discharge tomorrow with outpatient antibiotics 09/17 Patient seen and examined no acute overnight events. Since last night she has been having nausea. She attributes that to constipation as well as use of MiraLAX. We will try to use suppositories to help with constipation and give some lactulose. Patient also thinks that the low hemoglobin is contributing to her nausea. The patient will be getting dialysis today and 2 units of RBC transfused during dialysis according to nephrology. Hemoglobin this morning is 7.1. Patient otherwise denies any other acute complaints or concerns. Pain is reasonably controlled. If the patient's nausea does not improve we will consider getting a hepatobiliary ultrasound 09/18 She is seen and examined no acute overnight events, her nausea has resolved she is able to tolerate p.o. diet very well. Chest x-ray shows resolving pneumonia chest CT shows pleural effusion still present some loculation patient also has significant effusion is not draining adequately. Will give TPA today. Patient is still constipated has not had a bowel movement since admission. Will try an aggressive bowel regimen home that she is able to pass stools. Continue antibiotics for now. She got 2 units of transfusion during dialysis and tolerated it well. Anticipate discharge home tomorrow, she has no caregivers today at home Pertinent ROS: Denies headache, dizziness Denies chest pain, palpitations Denies cough or shortness of breath Denies abdominal pain, nausea or vomiting. - Constitutional Vitals: Vital Signs Temp Pulse Resp BP Pulse Ox 97.5 F 64 18 120/68 96 09/18/17 06:33 09/18/17 03:01 09/18/17 06:33 09/18/17 06:33 09/18/17 07:40 Period Temp Pulse Resp BP Sys/Reid Pulse Ox Last 24 Hr 96.5 F-99.5 F 64-77 12-20 112-140/45-85 96-98 Intake and Output 09/17/17 09/18/17 09/18/17 21:59 05:59 13:59 Intake Total 1110 / 1110 400 / 400 Output Total 3000 / 3000 Balance -1890 / -1890 400 / 400 Weight 183 lb Intake & Output: Intake & Output 09/17/17 09/18/17 09/18/17 21:59 05:59 13:59 Intake Total 1110 / 1110 400 / 400 Output Total 3000 / 3000 Balance -1890 / -1890 400 / 400 Weight 183 lb Intake: IV 300 / 300 50 / 50 Zosyn 2.25 gm In Dextrose 5% in 50 / 50 50 / 50 Water 50 ml @ 100 mls/hr IV Q8H [facility] Rx#:[id number] Vancomycin 1,000 mg In Sodium 250 / 250 Chloride 0.9% 250 ml @ 250 mls/ hr IV ONCE ONE Rx#:[id number] Oral 480 / 480 350 / 350 Blood Product 330 / 330 Output: Hemodialysis UF 3000 / 3000 Other: Meal Dinner Percent of Meal Consumed 75% Feeding Ability Independent Exam: Constitutional; Afebrile, cooperative, alert, not in distress. Eyes- No icterus, , No periorbital swelling Ears- Ext ear normal, hearing normal to conversation. Neck- Midline trachea, supple Respiratory system: Air Entry reduced on the right side, left side is okay no wheezing able to speak full sentences no accessory muscle use. CVS- Rate rhythm regular, S1,S2 heard, no gallop, no rub. Abdomen- Soft nontender abdomen, no organomegaly, no tenderness, no guarding or rigidity, [employer]- AOOx3, moving all extremities, no gross focal deficit noted. Medical - PN: Obj Da - Labs CBC & Chem 7: 09/18/17 04:55 09/18/17 04:55 Labs: Abnormal Lab Results 09/18/17 09/18/17 09/18/17 04:55 04:55 04:55 WBC RBC 2.90 L Hgb 9.4 L Hct 27.5 L RDW 17.6 H MPV 6.8 L Gran % Lymph % (Auto) 9.4 L Tama % (Auto) 12.4 H Eos % (Auto) 7.9 H Gran # Lymph # (Auto) 0.8 L Tama # (Auto) 1.1 H Eos # (Auto) PT 24.2 H INR 2.1 H Sodium Chloride 95 L Carbon Dioxide BUN 24 H Creatinine 3.5 H Glucose Uric Acid GGT 70 H Lactate Dehydrogenase 331 H Albumin 2.8 L Globulin Albumin/Globulin Ratio 0.8 L Triglycerides 09/17/17 09/17/17 09/17/17 04:05 04:05 04:05 WBC RBC 2.17 L Hgb 7.1 L Hct 21.4 L RDW 16.5 H MPV 6.7 L Gran % Lymph % (Auto) 9.5 L Tama % (Auto) Eos % (Auto) 7.2 H Gran # 8.1 H Lymph # (Auto) 1.0 L Tama # (Auto) Eos # (Auto) 0.8 H PT 20.8 H INR 1.8 H Sodium 132 L Chloride 87 L Carbon Dioxide 35 H BUN 44 H Creatinine 5.4 H* Glucose Uric Acid GGT Lactate Dehydrogenase 310 H Albumin 2.7 L Globulin 3.8 H Albumin/Globulin Ratio 0.7 L Triglycerides 172 H 09/16/17 09/16/17 09/16/17 04:46 04:46 04:46 WBC 12.4 H RBC 2.19 L Hgb 7.2 L Hct 21.2 L RDW 16.3 H MPV 6.8 L Gran % 79.8 H Lymph % (Auto) 6.4 L Tama % (Auto) Eos % (Auto) Gran # 9.9 H Lymph # (Auto) 0.8 L Tama # (Auto) 1.1 H Eos # (Auto) PT 20.7 H INR 1.8 H Sodium Chloride 91 L Carbon Dioxide 31 H BUN 31 H Creatinine 3.7 H Glucose 111 H Uric Acid 2.1 L GGT Lactate Dehydrogenase 361 H Albumin 2.8 L Globulin Albumin/Globulin Ratio 0.8 L Triglycerides 152 H Meds: Medications Acetaminophen (Tylenol) 650 mg PO Q6HP PRN PRN Reason: PAIN/FEVER > 101 Last Admin: 09/17/17 20:15 Dose: 650 mg Amiodarone HCl (Cordarone) 200 mg PO QPM [facility] Last Admin: 09/17/17 20:15 Dose: 200 mg Calcium Acetate (Phoslo) 2,001 mg PO TIDCC [facility] Last Admin: 09/18/17 09:28 Dose: 2,001 mg Carvedilol (Coreg) 6.25 mg PO BIDCC [facility] Last Admin: 09/18/17 09:30 Dose: 6.25 mg Diltiazem HCl (Cardizem) 180 mg PO BID [facility] Last Admin: 09/18/17 09:30 Dose: 180 mg Hydromorphone HCl (Dilaudid) 1 mg IV Q4HP PRN PRN Reason: PAIN LEVEL > 6 Last Admin: 09/17/17 22:16 Dose: 1 mg Piperacillin Sod/Tazobactam (Sod 2.25 gm/ Dextrose) 50 mls @ 100 mls/hr IV Q8H [facility] Last Admin: 09/18/17 05:30 Dose: 100 mls/hr Ibuprofen (Motrin) 400 mg PO Q6HP PRN PRN Reason: Pain Last Admin: 09/15/17 22:10 Dose: 400 mg Metoclopramide HCl (Reglan) 5 mg PO Q6HP PRN PRN Reason: Nausea Naloxone HCl (Narcan) 0.1 mg IV Q2MIN PRN PRN Reason: Opiate Reversal Ondansetron HCl (Zofran) 4 mg IV Q6HP PRN PRN Reason: Nausea And Vomiting Last Admin: 09/17/17 08:21 Dose: 4 mg Oxycodone HCl (Roxicodone) 10 - 20 mg PO Q4HP PRN PRN Reason: Pain Level 3-6 Last Admin: 09/17/17 20:16 Dose: 10 mg Sodium Chloride (Saline Flush) 10 ml IV Q8 [facility] Last Admin: 09/18/17 05:30 Dose: 10 ml Torsemide (Demadex) 40 mg PO DAILY [facility] Last Admin: 09/18/17 09:30 Dose: 40 mg Vancomycin HCl (Vancomycin Per Pharmacy) 1 order IV UD [facility] Vitamin D (Vitamin D3) 1,000 unit PO DAILY [facility] Last Admin: 09/18/17 09:30 Dose: 1,000 unit Warfarin Sodium (Coumadin Per Pharmacy) 1 order PO UD [facility] Warfarin Sodium (Coumadin) 2.5 mg PO ONCE@1400 ONE Stop: 09/18/17 14:01 Medical - PN: A/P - Time Spent With Patient Total time spent is greater than 50% in coordination of care (as documented) at patient's floor/unit and/or counseling patient: - Narrative A/P Narrative: A/P Healthcare associated pneumonia-treated with IV vancomycin and Zosyn day 5. Chest x-ray shows significant pneumonia on the left side, patient is clinically improving, microbiology is negative so far. Acute hypoxic respiratory failure-patient may also have chronic hypoxia. Wean off oxygen as tolerated. Patient will need oxygen at home given significant right-sided pleural effusion. Evaluate for home oxygen therapy Nausea: Resolved Constipation: Still persistent, declined lactulose yesterday. Suppositories. If still he does not have a bowel movement today will consider getting an enema patient has agreed to same Atrial fibrillation-rate controlled, continue medications, Chronic anticoagulation-due to atrial fibrillation, Supratherapeutic INR-INR is therapeutic now Chronic right-sided pleural effusion-malignant pleural effusion drain in place, chest tube is not draining adequately give her TPA today. CT reviewed Lung cancer-patient plans to start chemotherapy I believe on the of this month. Awaiting paperwork to be completed End-stage renal disease-nephrology consulted, they are following. Patient had dialysis yesterday Elevated blood pressure-blood pressure stable. Continue home medications Chronic pain-continue home pain medication regimen. Anemia-anemia of chronic disease, hemoglobin improved appropriately after 2 units of blood transfusion DVT prophylaxis-patient is on Coumadin, INR is therapeutic Patient wishes to be full code Renal diet Medical - PN: Qual - VTE Deep Vein Thrombosis/Pulmonary Embolism Present on Admission: No
[2017-09-18] MEDS: HYDROmorphone 2 MG/ML VIAL IV PRN (10:53)
[2017-09-18] MEDS ORDERED: WARFARIN 2.5 MG TABLET PO ONE (14:00)
[2017-09-18] MEDS: oxyCODONE HCL 5 MG TABLET PO PRN ×2 (16:29→21:54)
[2017-09-18] MEDS: ACETAMINOPHEN 325 MG TABLET PO PRN (16:30)
[2017-09-18] MEDS ORDERED: BISACODYL 10 MG SUPP.RECT PR ONE (19:14)
[2017-09-18] MEDS ORDERED: MINERAL OIL 1 DOSE ENEMA PR ONE (19:14)
[2017-09-18] MEDS: AMIODARONE HCL 200 MG TABLET PO SCH (21:56)
[2017-09-19] MEDS: ACETAMINOPHEN 325 MG TABLET PO PRN ×2 (04:46→15:12)
[2017-09-19] MEDS: oxyCODONE HCL 5 MG TABLET PO PRN ×2 (04:46→15:13)
[2017-09-19] MEDS: 0.9 % SODIUM CHLORIDE 10 ML SYRINGE IV SCH ×2 (06:12→14:49)
[2017-09-19] MEDS: PIPERACILLIN SODIUM/TAZOBACTAM 2.25 GM in DEXTROSE 5% IN WATER 50 ML IV SCH ×2 (06:12→14:49)
--- NOTE | 2017-09-19 06:25 | Nephrology Progress Note ---
Subjective Patient information: Note initiated : 09/19/17 at 6:25 am Stefany Chew is a [id number] female with end stage renal disease on chronic hemodialysis (through right arm AV fistula, at [facility], on TTS, followed by Dr Saldivar ), chronic anemia due to chronic kidney disease, secondary hyperparathyroidism, coronary artery disease by calcifications on CT, history of pericardial effusion s/p pericardial window, chronic atrial fibrillation on Coumadin anticoagulation, hypertension, hyperlipidemia, chronic obstructive pulmonary disease with tobacco dependence in remission, history of metastatic lung adenocarcinoma with right pleural metastasis and malignant right pleural effusion s/p robotic-assisted right lower lobectomy/mediastinal lymph node resection on 10/19/16 and 4 cycles of carboplatin/paclitaxel completed on 02/01/17 , presented to [facility] ED on 09/14/17 and admitted to [facility] for pneumonia. Chief Complaint: Shortness of breath. Principal diagnosis: End stage renal disease Interval history: No significant events overnight. Pertinent ROS: Weakness. Shortness of breath. Objective - Vital Signs Vital signs: Vital Signs Temp Pulse Resp BP Pulse Ox 09/19/17 04:00 97.9 F 65 14 150/68 98 09/19/17 00:00 98.2 F 66 14 136/75 98 09/18/17 22:22 96 09/18/17 21:55 98 09/18/17 20:00 97.8 F 61 16 151/56 100 09/18/17 15:40 97.9 F 18 119/65 97 09/18/17 07:40 96 09/18/17 06:33 97.5 F 18 120/68 97 Intake and Output 09/18/17 09/19/17 09/19/17 21:59 05:59 13:59 Intake Total 490 / 490 850 / 850 Balance 490 / 490 850 / 850 Intake: IV 50 / 50 50 / 50 Zosyn 2.25 gm In Dextrose 5% in 50 / 50 50 / 50 Water 50 ml @ 100 mls/hr IV Q8H [facility] Rx#:[id number] Oral 440 / 440 800 / 800 Other: Meal Dinner Percent of Meal Consumed 100% Stool Size Copious Stool Color Brown Stool Consistency Formed Weight 184 lb Intake & Output: Intake & Output 09/18/17 09/19/17 09/19/17 21:59 05:59 13:59 Intake Total 490 / 490 850 / 850 Balance 490 / 490 850 / 850 Weight 184 lb Intake: IV 50 / 50 50 / 50 Zosyn 2.25 gm In Dextrose 5% in 50 / 50 50 / 50 Water 50 ml @ 100 mls/hr IV Q8H [facility] Rx#:[id number] Oral 440 / 440 800 / 800 Other: Meal Dinner Percent of Meal Consumed 100% Stool Size Copious Stool Color Brown Stool Consistency Formed - General Appearance General appearance: well-nourished, appears started age EENT: mucous membranes moist, hearing intact Neck: no JVD, supple Respiratory: clear Cardiology: regular rate, normal S1, normal S2 Gastrointestinal: no tenderness Integumentary: no rash, warm and dry Neurologic: no focal deficit Musculoskeletal: no erythema, no cyanosis Psychiatric: mood/affect appropriate, cooperative - Lab 09/19/17 05:20 09/19/17 05:20 Most recent lab results Calcium 9.4 mg/dl (8.6-10.4) 09/18/17 04:55 Phosphorus 2.9 mg/dL (2.7-4.5) 09/18/17 04:55 Magnesium 2.0 mg/dL (1.6-2.5) 09/18/17 04:55 Assessment and Plan (1) ESRD (end stage renal disease) on dialysis Hemodialysis on TTS. Status: Chronic Priority: Medium (2) Anemia due to end stage renal disease s/p 2 units PRBC on 09/17/17. Status: Chronic Priority: Medium
[2017-09-19 06:26] LABS: Basophils # (Auto) 0 K/mcL (0.0-0.3); Basophils % (Auto) 0.3 % (0.0-2.0); Eosinophils # (Auto) 0.8 K/mcL (0.0-0.7); Eosinophils % (Auto) 7.8 % (0.0-7.0); Granulocytes % (Auto) 72.6 % (38.0-78.0); Lymphocytes # (Auto) 0.8 K/mcL (1.5-4.8); Lymphocytes % (Auto) 7.7 % (15.5-49.0); Mean Cell Volume 95.9 fL (80.0-100.0); Mean Corpuscular HGB Conc 33.6 g/dL (31.0-36.0); Mean Corpuscular Hemoglobin 32.2 pg (26.0-34.0); Monocytes # (Auto) 1.2 K/mcL (0.1-0.9); Monocytes % (Auto) 11.6 % (1.0-12.0); Platelet Count 400 K/mcL (140-440); RBC 3.14 M/mcL (4.00-5.20); Red Cell Distribution Width 16.6 % (11.5-14.5)
[2017-09-19 06:52] LABS: ALT/SGPT 6 U/l (0-40); Albumin 2.9 gm/dL (3.2-5.2); Albumin/Globulin Ratio 0.7 (1.0-2.3); Alkaline Phosphatase 117 U/L (39-117); Bilirubin,Direct < 0.2 mg/dL (0.0-0.3); Blood Urea Nitrogen 40 mg/dl (8-23); Gamma Glutamyl Transpeptidase 88 U/L (5-36); Uric Acid 4.5 mg/dL (2.5-8.0)
[2017-09-19] MEDS: CARVEDILOL 6.25 MG TABLET PO SCH (08:52)
[2017-09-19] MEDS: VITAMIN D3 1,000 UNIT TABLET PO SCH (08:52)
[2017-09-19] MEDS: CALCIUM ACETATE 667 MG CAPSULE PO SCH ×2 (08:52→14:49)
[2017-09-19] MEDS: DILTIAZEM 30 MG TABLET PO SCH (08:53)
[2017-09-19] MEDS: TORSEMIDE 10 MG TABLET PO SCH (08:53)
--- NOTE | 2017-09-19 11:47 | Discharge Summary ---
Medical - DS: Prov Patient information: Note initiated : 09/19/17 at 11:45 am Service Date, if different from initiated Date: [] Patient: Stefany Chew 62 y/o F admitted on 09/14/17 for Pneumonia. Chief Complaint: [] Date of admission: 09/14/17 16:45 Discharge date: 09/19/17 Primary care physician: Jazmyn Lindsay Admitting clinician: Alisha Moser Consults: 09/15/17 12:51 Consult to Physician [CONS] Routine Comment: Consulting Provider: Jean Stewart Reason For Exam: Physician to Consult Discharging clinician: Alisha Moser Medical - DS: Meds - Discharge Medications Prescriptions: Levofloxacin 500 mg PO Q48 #2 tab Active and Home Medications: Home Medications oxycodone 5 mg tablet 20 mg PO Q4H PRN 03/22/16 [History Confirmed 09/14/17 Last Taken 09/13/17 18:00] torsemide 20 mg tablet 40 mg PO QDAY #60 tab 09/06/16 [Rx Confirmed 09/14/17 Last Taken 09/14/17 08:00] calcium acetate 667 mg capsule 2,001 mg PO TID 30 Days #270 cap 10/17/16 [Rx Confirmed 09/14/17 Last Taken 09/13/17 18:00] Amiodarone HCl [Cordarone] 200 mg PO QPM 04/28/17 [History Confirmed 09/14/17 Last Taken 09/13/17 19:00] carvedilol 6.25 mg tablet 6.25 mg PO BID 07/26/17 [History Confirmed 09/14/17 Last Taken 09/14/17 08:00] cholecalciferol (vitamin D3) 1,000 unit capsule 1,000 unit PO QDAY cap [History Confirmed 09/14/17 Last Taken 09/13/17 12:00] ibuprofen 400 mg tablet 400 mg PO Q6H PRN tab 07/26/17 [History Confirmed 09/14 Last Taken 09/13/17 18:00] metoclopramide 10 mg tablet 10 mg PO Q6H PRN tab 07/26/17 [History Confirmed Last Taken 09/12/17] ondansetron HCl 8 mg tablet 8 mg PO Q8H PRN tab 07/26/17 [History Confirmed Last Taken 09/14/17 14:00] Diltiazem [Cardizem] 180 mg PO BID 09/14/17 [History Confirmed 09/14/17 Last Taken 09/14/17 09:00] Warfarin [Coumadin] 5 mg PO SUTUTHSA@1800 09/16/17 [History Confirmed 09/16/17 Last Taken Unknown] Warfarin [Coumadin] 6 mg PO MOWEFR@1800 09/16/17 [History Confirmed 09/16/17 Last Taken Unknown] Medical - DS: Hosp Hospital course: Ms. Chew is a 62 year old Female with history of end-stage renal disease she is on dialysis on Tuesdays and Saturdays, follows with Dr. Saldivar she also has a history of lung cancer and is going to undergo chemotherapy for same. The patient has been short of breath going on for the last 1 week prior to admission. Shortness of breath has progressively been getting worse, she admits that during dialysis for the last couple of sessions her oxygen levels were low and she needed supplemental oxygen. The patient today noted that her shortness of breath was much worse. She therefore presented to [facility] for evaluation and management. In the emergency room there a chest x- ray was done which showed an infiltrate in the left lobe. She has also chronic effusion on the right hemothorax. No evidence of CHF reported. The patient's labs showed leukocytosis with a hemoglobin of 8.2 WBC 13.9 platelets 420. Left lites were stable, potassium 4.0 bicarbonate 27. BUN was 34 creatinine 4.9. VBG done showed a pH of 7.5. The [facility] did not have dialysis on Saturdays and therefore the patient was presented here at [facility] for further evaluation and treatment. The patient was admitted to medical floor for further management. The patient notes that she may have had some cough that is slightly worse than a chronic cough. She usually has chronic cough in the morning and over the week may be her cough is slightly worse. She admits to being more fatigued and more tired than usual. Otherwise she denies any headache, changes in vision hearing or difficulty in swallowing, she denies any acute chest pain, does admit to having shortness of breath, no wheezing, she has decreased effort tolerance. She has chronic nausea she had attributes this to inflammation of the bile duct and follows up with Dr. Esparza for same. She denies any vomiting she denies any constipation or diarrhea. She denies any acute joint pain joint swellings no new skin rashes no depression no anxiety. Denies any acute bleeding she denies any allergic reactions she denies any other acute concerns or complaint She wishes to be full code 09/15 Patient seen and examined no acute overnight events. Patient has no acute complaints. Patient had elevated INR, 5 mg of p.o. vitamin K given. Patient denies any acute bleed. Her hemoglobin has dropped to 7.3 this morning. INR has improved to 14. We will repeat another dose of vitamin K and monitor INR level. If the patient shows any evidence of bleeding will transfuse as well as give FFP. Chest x-ray shows pneumonia stable since yesterday on the left side. She has significant effusion on the right side which is chronic she has a drain in place on the right side which is placed by radiology at [facility]. She notes that around 70 cc of fluid was aspirated the last time. I have advised her to discuss this with the radiologist as there is a lot more fluid in the chest cavity than what is being presently drained. 09/16 Patient seen and examined had some pain yesterday which responded to increase in pain dosing. Patient's hemoglobin is stable. She denies any other acute concerns. Had hemodialysis yesterday. WBC is trending down. Remains on broad-spectrum antibiotics cultures are negative so far. Plan to work with physical therapy today If clinically improves consider discharge tomorrow with outpatient antibiotics 09/17 Patient seen and examined no acute overnight events. Since last night she has been having nausea. She attributes that to constipation as well as use of MiraLAX. We will try to use suppositories to help with constipation and give some lactulose. Patient also thinks that the low hemoglobin is contributing to her nausea. The patient will be getting dialysis today and 2 units of RBC transfused during dialysis according to nephrology. Hemoglobin this morning is 7.1. Patient otherwise denies any other acute complaints or concerns. Pain is reasonably controlled. If the patient's nausea does not improve we will consider getting a hepatobiliary ultrasound 09/18 She is seen and examined no acute overnight events, her nausea has resolved she is able to tolerate p.o. diet very well. Chest x-ray shows resolving pneumonia chest CT shows pleural effusion still present some loculation patient also has significant effusion is not draining adequately. Will give TPA today. Patient is still constipated has not had a bowel movement since admission. Will try an aggressive bowel regimen home that she is able to pass stools. Continue antibiotics for now. She got 2 units of transfusion during dialysis and tolerated it well. Anticipate discharge home tomorrow, she has no caregivers today at home 09/19 Pt seen examined, no acute ovenright issues, she is ambulatory and tolerating po diet well, today is d5 of abx, She still is on oxygen, she had evaluation done for home oxygen, He osat on RA was 90%, on ambulation 80%, she had osat 90% on 2 L oxygen while ambulation. Reason for need for oxygen is COPD, Lung Malignancy, Malignant Pleural effusion Given her h/o malignant effusion, I feel pt will benefit from continuos oxygen A/P Healthcare associated pneumonia-treated with IV vancomycin and Zosyn day 6, . Chest x-ray shows significant pneumonia on the left side, patient is clinically improving, microbiology is negative so far. Will give additional levofloxacin coverage for 2 more days. B5 100 mg every 48 hours. Acute hypoxic respiratory failure-patient may also have chronic hypoxia. Wean off oxygen as tolerated. Patient will need oxygen at home given significant right-sided pleural effusion. Evaluate for home oxygen therapy Nausea: Resolved Constipation: Still persistent, declined lactulose yesterday. Suppositories. If still he does not have a bowel movement today will consider getting an enema patient has agreed to same Atrial fibrillation-rate controlled, continue medications, Chronic anticoagulation-due to atrial fibrillation, Supratherapeutic INR-INR is therapeutic now Chronic right-sided pleural effusion-malignant pleural effusion drain in place, chest tube is not draining adequately, we were contemplating tpa but pt did not wish for same and therefore tpa was not give, advised to follow up with her oncologist. Lung cancer-patient plans to start chemotherapy I believe on the of this month. Awaiting paperwork to be completed End-stage renal disease-nephrology consulted, they are following. Patient had dialysis yesterday, continue as per outpatient schedule Chronic pain-continue home pain medication regimen. Anemia-anemia of chronic disease, hemoglobin improved appropriately after 2 units of blood transfusion Discharge diagnosis: Health care associated pneumonia. - Time Spent with Patient Total time spent providing and/or coordinating discharge services: Greater than 30 minutes Medical - DS: Exam - Constitutional Vitals: Vital Signs Temp Pulse Resp BP Pulse Ox 09/19/17 07:17 97 F 16 144/71 99 09/19/17 04:00 97.9 F 65 14 150/68 98 09/19/17 00:00 98.2 F 66 14 136/75 98 09/18/17 22:22 96 09/18/17 21:55 98 09/18/17 20:00 97.8 F 61 16 151/56 100 09/18/17 15:40 97.9 F 18 119/65 97 Intake and Output 09/18/17 09/19/17 09/19/17 21:59 05:59 13:59 Intake Total 490 / 490 850 / 850 860 / 860 Balance 490 / 490 850 / 850 860 / 860 Intake: IV 50 / 50 50 / 50 Zosyn 2.25 gm In Dextrose 5% in 50 / 50 50 / 50 Water 50 ml @ 100 mls/hr IV Q8H [facility] Rx#:[id number] Oral 440 / 440 800 / 800 860 / 860 Other: Meal Dinner Breakfast Percent of Meal Consumed 100% 100% Stool Size Copious Stool Color Brown Stool Consistency Formed Weight 184 lb Additional comments: Constitutional; Afebrile, cooperative, alert, not in distress. Eyes- No icterus, , No periorbital swelling Ears- Ext ear normal, hearing normal to conversation. Neck- Midline trachea, supple Respiratory system: Air Entry reduced right side, left side is clear CVS- Rate rhythm regular, S1,S2 heard, no gallop, no rub. Abdomen- Soft nontender abdomen, no organomegaly, no tenderness, no guarding or rigidity, SCRAP HOOKER- AOOx3, moving all extremities, no gross focal deficit noted. Medical - DS: Data Procedures and tests throughout hospitalization: chest x ray IMPRESSION: Severe pneumonia, stable right-sided pleural effusion No significant change from yesterday CT chest IMPRESSION: 1. Large chronic right pleural effusion with moderate loculated component in the anterior apex. Right-sided chest tube is located in satisfactory position without evidence of CT or breakage. The tube tip is in the posterior lateral costophrenic sulcus. Patient may benefit from TPA instillation to enhanced pleural drainage 2. Large alveolar infiltrate throughout the left upper lobe and moderate groundglass infiltrates in the lingula and peribronchial vascular left lower lobe. Plain film review shows left-sided infiltrates are gradually improving. No evidence of left pleural effusion. 3. Right lower lobectomy changes. Consolidation atelectasis of the entire right middle lobe and subsegmental atelectasis in the peripheral right upper lobe related to the volume of the effusion 4. Mild enlargement of the central pulmonary arteries compatible pulmonary hypertension - stable 5. Moderate cardiomegaly with heavy calcific plaque in the coronary arteries - stable 6. Moderate bilateral renal atrophy 7. Moderate dilatation of the common bile duct stable presumably related to post cholecystomy papillary stenosis. Labs on day of discharge: Labs from last 24 hours 09/19/17 09/19/17 09/19/17 05:20 05:20 05:20 WBC 10.7 RBC 3.14 L Hgb 10.1 L Hct 30.1 L MCV 95.9 MCH 32.2 MCHC 33.6 RDW 16.6 H Plt Count 400 MPV 6.7 L Gran % 72.6 Lymph % (Auto) 7.7 L [place] % (Auto) 11.6 Eos % (Auto) 7.8 H Baso % (Auto) 0.3 Gran # 7.8 Lymph # (Auto) 0.8 L [place] # (Auto) 1.2 H Eos # (Auto) 0.8 H Baso # (Auto) 0 PT 27.4 H INR 2.5 H Sodium 135 Potassium 4.0 Chloride 90 L Carbon Dioxide 31 H Anion Gap 14.0 BUN 40 H Creatinine 4.9 H GFR Calculation 9 Glucose 95 Uric Acid 4.5 Calcium 10.4 Phosphorus 2.6 L Magnesium 2.1 Total Bilirubin 0.3 Direct Bilirubin < 0.2 GGT 88 H AST 10 ALT 6 Alkaline Phosphatase 117 Lactate Dehydrogenase 279 H Total Protein 6.9 Albumin 2.9 L Globulin 4.0 H Albumin/Globulin Ratio 0.7 L Triglycerides 174 H Medical - DS: A/P - Patient/Caregiver Discharge Instructions Activity: as per physical therapy, increase activity as tolerated, wear oxygen at all times Diet: Regular Diet Additional Instructions: Take levofloxacin 500mg q48 hrs for two doses Please wear oxygen at all times. Follow-up with PCP in 1 week. Follow-up your usual dialysis session with Dr. Saldivar. Follow-up with her anticoagulants in clinic in 2-3 days to monitor your INR. Adjust dosing as per PCP Follow-up with her oncologist as per previously scheduled. He still have significant fluid in the right side of the chest and I would advise you to talk to her oncologist to see if anything else needs to be done to help her to facilitate its drainage. Go to the emergency room if he noticed chest pain shortness of breath fever or any other acute concerning symptom. Prescriptions: Levofloxacin 500 mg PO Q48 #2 tab - Follow up Plan Disposition: Home Health Service Prognosis: Fair Rehab Potential: Fair I certify that the patient requires SNF services: No Overall status at discharge: patient is progressing back to baseline Medical - DS: Qual - VTE Deep Vein Thrombosis/Pulmonary Embolism Present on Admission: No
[2017-09-19] MEDS ORDERED: WARFARIN 1 MG TABLET PO ONE (14:00)
[2017-09-19] MEDS: ONDANSETRON 4 MG/2 ML VIAL IV PRN (14:48)
== END 2017-09-19 16:50 | disposition home health service (06) | DRG 193 ==
LOC: MEDSUR 16:45
PROVIDERS: ADMIT Internal Medicine; ATTEND Internal Medicine

== ENCOUNTER 2017-10-27 14:45 | Inpatient (IN) ==
[2017-10-27] MEDS ORDERED: IOPAMIDOL 100 ML BOTTLE IV ONE (14:46)
[2017-10-27] MEDS ORDERED: LEVOFLOXACIN 750 MG/150 ML BAG IV ONE (15:13)
[2017-10-27] MEDS ORDERED: 0.9 % SODIUM CHLORIDE 1,000 ML IV ONE (15:17)
[2017-10-27] MEDS ORDERED: ONDANSETRON ODT 4 MG TABLET SL ONE (15:33)
--- NOTE | 2017-10-27 16:02 | XRay Report ---
INDICATION: History of lung cancer. Dyspnea. Fever. TECHNIQUE: PA and lateral upright chest x-ray COMPARISON: Chest CT scan dated 09/18/2017, 08/13/2017, 04/30/2017. Chest x-rays dated 09/18/2017 [id number] FINDINGS:Left lung is negative. No parenchymal infiltrate or mass. There are surgical clips in the right side of the lower cervical region. There is right pleural fluid with an indwelling right basilar pleural drainage catheter. This pleural fluid has increased since 09/18/2017. CT scans demonstrated loculated fluid collections. Right lung is only partially aerated and not well evaluated. Pneumonia is possible in this febrile patient. Heart size and vascularity are normal. No evidence for congestive heart failure. IMPRESSION: 1. Indwelling right pleural drainage catheter, unchanged position 2. Increased right pleural fluid since 09/18/2017. Empyema suspected 3. Right lung is only partially aerated and not well evaluated. Interpreted and Authenticated by: Leonard Galo 10/27/17
[2017-10-27 16:21] LABS: Basophils # (Auto) 0 K/mcL (0.0-0.3); Basophils % (Auto) 0.2 % (0.0-2.0); Eosinophils # (Auto) 0.9 K/mcL (0.0-0.7); Eosinophils % (Auto) 5.7 % (0.0-7.0); Granulocytes % (Auto) 82.9 % (38.0-78.0); Lymphocytes # (Auto) 0.8 K/mcL (1.5-4.8); Lymphocytes % (Auto) 5.4 % (15.5-49.0); Mean Cell Volume 93.1 fL (80.0-100.0); Mean Corpuscular HGB Conc 33.6 g/dL (31.0-36.0); Mean Corpuscular Hemoglobin 31.3 pg (26.0-34.0); Monocytes # (Auto) 0.9 K/mcL (0.1-0.9); Monocytes % (Auto) 5.8 % (1.0-12.0); Platelet Count 285 K/mcL (140-440); RBC 3.25 M/mcL (4.00-5.20); Red Cell Distribution Width 15.5 % (11.5-14.5)
[2017-10-27 16:40] LABS: ALT/SGPT 7 U/l (0-40); Albumin/Globulin Ratio 1.2 (1.0-2.3); Alkaline Phosphatase 67 U/L (39-117); Blood Urea Nitrogen 44 mg/dl (8-23); C-Reactive Protein 3.1 mg/dl (0.0-0.8)
--- NOTE | 2017-10-27 17:04 | Cat Scan Report ---
CLINICAL INFORMATION: History of right lower lobectomy for treatment of lung cancer. Patient is currently febrile. COMPARISON: Chest x-ray dated 10/27/2017. CT scans dated 09/18/2017, 08/13/2017, 04/30/2017 TECHNIQUE: Axial contrast enhanced images through the chest. Sagittally and coronally reformatted images. MIP reformatted images. 80 mL contrast material injected intravenously. FINDINGS: Left lung is negative. No parenchymal infiltrate or mass. No interval change. There is a right basilar pleural drainage catheter. This is in unchanged position. There is right basilar and posterior lateral pleural fluid. This fluid collection is unchanged. This is not septated or enhancing. There is a second pleural fluid collection in the right apex. This is essentially unchanged. There is generalized mild pleural thickening but no well-defined enhancing pleural mass. There is extensive right lung consolidation. A well-defined discrete mass is not identified although a small focal mass could be inapparent on this study. Appearance is consistent with pneumonia. No new hilar or mediastinal lymphadenopathy. No significant cardiomegaly. There is extensive coronary artery calcification. No thoracic compression fracture. No rib or sternal lesions. Images through the upper abdomen demonstrate marked dilatation of the common hepatic duct and common bile duct. These findings are unchanged. Patient has had previous cholecystectomy. The entire liver is not imaged but there is no focal hepatic mass in the visualized portions. Kidneys are not imaged. Only the upper poles are visualized and there is severe renal atrophy. IMPRESSION: 1. Previous right lower lobectomy 2. Right-sided pleural fluid collections are unchanged since 09/18/2017. There is a pleural drainage catheter within the lower fluid collection. 3. No enhancing pleural based mass 4. Severe consolidation of the right lung. This is worse than on previous examination and is consistent with pneumonia 5. Calcified coronary artery disease 6. Previous cholecystectomy. Significant dilatation of the common hepatic duct and common bile duct. Findings are unchanged 7. Renal atrophy The exam was performed using radiation dose optimization techniques including, but not limited to, automated exposure control, adjustment of the mA and/or kV according to patient size and use of iterative reconstruction technique. Interpreted and Authenticated by: Leonard Galo 10/27/17
--- NOTE | 2017-10-27 17:13 | Emergency Department Note ---
General Adult HPI - General Chief complaint: Fever Stated complaint: Fever Time Seen by Provider: 10/27/17 15:12 Source: patient Mode of arrival: wheelchair Limitations: no limitations - History of Present Illness HPI Narrative: Patient presents with shaking chills and malaise, increasing cough nonproductive over the last 24 hours. Pleurisy of the right chest. Mild weakness but not profound, no mental status changes. Has a pigtail catheter and right chest, actively receiving immune suppressive agent for chemotherapy. Chronically anticoagulated. - Related Data Home Medications Medication Instructions Recorded Confirmed oxycodone 5 mg tablet 20 mg PO Q4H PRN 03/22/16 10/27/17 Amiodarone HCl [Cordarone] 200 mg PO QPM 04/28/17 10/27/17 cholecalciferol (vitamin D3) 1,000 1,000 unit PO QDAY cap 07/26/17 10/27/17 unit capsule ibuprofen 400 mg tablet 400 mg PO Q6H PRN tab 07/26/17 10/27/17 metoclopramide 10 mg tablet 10 mg PO Q6H PRN tab 07/26/17 10/27/17 Warfarin [Coumadin] 5 mg PO SUTUTHSA@1800 09/16/17 10/27/17 Warfarin [Coumadin] 6 mg PO MOWEFR@1800 09/16/17 10/27/17 Calcitriol [Rocaltrol] 1.5 mcg PO WEEKLY 10/27/17 10/27/17 Dicyclomine [Bentyl] 10 mg PO Q4H PRN 10/27/17 10/27/17 Previous Rx's Medication Instructions Recorded calcium acetate 667 mg capsule 2,001 mg PO TID 30 Days #270 cap 10/17/16 carvedilol 6.25 mg tablet 6.25 mg PO BID #60 tab 10/08/17 torsemide 20 mg tablet 40 mg PO QDAY #60 tab 10/08/17 diltiazem 60 mg tablet 180 mg PO BID #180 tab 10/15/17 Allergies Allergy/AdvReac Type Severity Reaction Status Date / Time HANH Inhibitors Allergy Unknown dry Verified 04/11/17 12:27 nostrils, throat tickle latex Allergy Unknown unknown Verified 04/11/17 12:27 Sulfa (Sulfonamide Allergy Unknown unknown Verified 04/11/17 12:27 Antibiotics) Review of Systems All systems ED: reviewed and negative except as stated. Past Medical History - Past Medical History Attestation: Yes: The following information was validated with the patient. Medical history: Reports: atrial fibrillation, cancer (Lung. s/p chemo), CHF, COPD, hyperlipidemia, hypertension, renal disease (on dialysis), other (HBV/HBV) APPLICATION SUPPORT TECHNICIAN history: Reports: other (D&C) Surgical history ED: Reports: colectomy, hysterectomy, orthopedic, other ( Carpal tunnel, rotator cuff, C-spine fusion), tonsillectomy, other (Pericardial window, dialysis fistula, thyroidectomy for adenoma) Family history: Reports: non-contributory - Social History smoking status: Former smoker Physical Exam Limitations: no limitations General appearance: alert, anxious Head: atraumatic, normocephalic Eye: Present: normal appearance ENT: mucous membranes moist Neck: Present: normal inspection Chest: Present: normal inspection Respiratory: Present: other (absent breath sounds, right lung) Cardiovascular: Present: regular rate, normal rhythm Abdominal: Present: soft. Absent: distention, tenderness Extremities: Present: normal inspection Neurological: Present: alert, oriented X3 Psychiatric: Present: normal affect Skin: Present: warm. Absent: cyanosis Course Vital Signs Temperature 99.0 F H 10/27/17 14:46 Pulse Rate 78 10/27/17 14:46 Respiratory Rate 20 10/27/17 14:46 Blood Pressure 147/70 10/27/17 14:46 Pulse Oximetry (%) 94 10/27/17 14:46 Temperature 100.3 F H 10/27/17 16:49 Pulse Rate 71 10/27/17 17:03 Respiratory Rate 21 10/27/17 17:03 Blood Pressure 144/56 10/27/17 17:01 Pulse Oximetry (%) 100 10/27/17 17:03 Medical Decision Making - Medical Records Medical records reviewed: Yes I reviewed the patient's medical records. - Lab Data Lab results reviewed: Yes I reviewed the patient's lab results. Result diagrams: 10/27/17 15:49 10/27/17 15:13 Lab Results 10/27/17 10/27/17 10/27/17 Range/Units 15:13 15:49 15:49 WBC 14.9 H (4.5-11.0) K/mcL RBC 3.25 L (4.00-5.20) M/mcL Hgb 10.2 L (12.0-15.0) g/dL Hct 30.3 L (36.0-48.0) % MCV 93.1 (80.0-100.0) fL MCH 31.3 (26.0-34.0) pg MCHC 33.6 (31.0-36.0) g/dL RDW 15.5 H (11.5-14.5) % Plt Count 285 (140-440) K/mcL MPV 7.8 (7.4-10.4) fL Gran % 82.9 H (38.0-78.0) % Lymph % (Auto) 5.4 L (15.5-49.0) % [place] % (Auto) 5.8 (1.0-12.0) % Eos % (Auto) 5.7 (0.0-7.0) % Baso % (Auto) 0.2 (0.0-2.0) % Gran # 12.3 H (1.8-8.0) K/mcL Lymph # (Auto) 0.8 L (1.5-4.8) K/mcL [place] # (Auto) 0.9 (0.1-0.9) K/mcL Eos # (Auto) 0.9 H (0.0-0.7) K/mcL Baso # (Auto) 0 (0.0-0.3) K/mcL PT (11.9-14.5) sec INR (0.9-1.1) VBG Lactic Acid 1.4 (0.5-2.2) mmol/L Sodium 129 L (133-145) mmol/L Potassium 4.8 (3.3-5.1) mmol/L Chloride 84 L (96-108) mmol/L Carbon Dioxide 29 (22-30) mmol/L Anion Gap 16.0 (8-16) BUN 44 H (8-23) mg/dl Creatinine 4.8 H (0.6-1.1) mg/dl GFR Calculation 9 Glucose 89 (70-105) mg/dL Calcium 9.6 (8.6-10.4) mg/dl Total Bilirubin 0.3 (0.0-1.0) mg/dL AST 12 (0-37) U/l ALT 7 (0-40) U/l Alkaline Phosphatase 67 (39-117) U/L C-Reactive Protein 3.1 H (0.0-0.8) mg/dl Total Protein 7.3 (5.9-8.4) gm/dL Albumin 4.0 (3.2-5.2) gm/dL Globulin 3.3 (2.2-3.7) gm/dL Albumin/Globulin Ratio 1.2 (1.0-2.3) Procalcitonin (<0.10) ng/mL 10/27/17 10/27/17 Range/Units 15:49 15:49 WBC (4.5-11.0) K/mcL RBC (4.00-5.20) M/mcL Hgb (12.0-15.0) g/dL Hct (36.0-48.0) % MCV (80.0-100.0) fL MCH (26.0-34.0) pg MCHC (31.0-36.0) g/dL RDW (11.5-14.5) % Plt Count (140-440) K/mcL MPV (7.4-10.4) fL Gran % (38.0-78.0) % Lymph % (Auto) (15.5-49.0) % [place] % (Auto) (1.0-12.0) % Eos % (Auto) (0.0-7.0) % Baso % (Auto) (0.0-2.0) % Gran # (1.8-8.0) K/mcL Lymph # (Auto) (1.5-4.8) K/mcL [place] # (Auto) (0.1-0.9) K/mcL Eos # (Auto) (0.0-0.7) K/mcL Baso # (Auto) (0.0-0.3) K/mcL PT 15.8 H (11.9-14.5) sec INR 1.3 H (0.9-1.1) VBG Lactic Acid (0.5-2.2) mmol/L Sodium (133-145) mmol/L Potassium (3.3-5.1) mmol/L Chloride (96-108) mmol/L Carbon Dioxide (22-30) mmol/L Anion Gap (8-16) BUN (8-23) mg/dl Creatinine (0.6-1.1) mg/dl GFR Calculation Glucose (70-105) mg/dL Calcium (8.6-10.4) mg/dl Total Bilirubin (0.0-1.0) mg/dL AST (0-37) U/l ALT (0-40) U/l Alkaline Phosphatase (39-117) U/L C-Reactive Protein (0.0-0.8) mg/dl Total Protein (5.9-8.4) gm/dL Albumin (3.2-5.2) gm/dL Globulin (2.2-3.7) gm/dL Albumin/Globulin Ratio (1.0-2.3) Procalcitonin 0.51 (<0.10) ng/mL - Radiology Data Radiology results reviewed: Yes I reviewed the patient's radiology results. CT chest with apical and basilar pleural effusions, stable cancer, diffuse middle lobe pneumonia Disposition Pt seen by INDIAN TRADER/PA only: No Clinical Impression: Pneumonia involving right lung, Lung cancer Disposition: Xfer As Inpt ([facility]) Condition: Serious Additional Instructions: High risk patient, admission Dialysis dependent, locate technician following Referrals: Jazmyn Lindsay MD [Primary Care Provider] -
--- NOTE | 2017-10-27 18:02 | Internal Med History&Physical ---
Medical - H&P: HPI Patient information: Note initiated : 10/27/17 at 5:54 pm Patient: Stefany Chew a 62 y/o F admitted on for right side pneumonia in setting of lung cancer and previous lobectomy. Chief Complaint: [fever, diffuse feelings of being unwell.] History of present illness: Ms. Chew is a 62 year old F with dx of lung CA, found incidentally on routine chest Xray last . Treated with lobectomy, currently receiving chemotherapy via oncology at [facility]. Has chronic right pleural effusion for which a pigtail drain has been placed and she drains it every day to every other day. Drainage has remained unchanged. She felt well yesterday when she went to bed - and, in fact, notes that she had "a very good day" overall. At 4 AM, she was wakened from sleep with shaking chills - "just couldn't get warm", she fell back to sleep under blankets and slept most of the morning. She missed dialysis (she dialyzes q , , Sat), this afternoon due to feeling of weakness and generalized malaise. Her daughter then insisted she come to the ED. She states really only a minimal cough, and no sputum production even with that. No change in chest discomfort or in breathing. Chronically on 2 liters O2 at home. No chronic inhalers per patient. Nausea and anorexia today, but no vomiting. Is up to date with respiratory immunizations. At baseline, makes very little urine, and has not noticed any changes with that. Evaluation in ED showed near white-out of right chest on imaging, and chest CT showed complex pneumonia in the setting of lung cancer. Previous history of distant PE; has been chronically anticoagulated on coumadin, no PE on study even though subtherapeutic INR at present. Review of systems: In particular, no chest pain, no change in breathing, no neurologic symptoms, no headache, no changes in bowel habits, no visual changes, no vertigo or hearing loss. No dysphagia. - Genitourinary Additional comments: Minimal urine production in the setting of chronic kidney disease on hemodialysis. - Neurological Additional comments: Fell two weeks ago on front porch - attributes it to trying to take two steps at a time and catching her foot. Denies general gait issues. - Hematologic/Lymphatic Additional comments: Feet have been swelling, patient has been told it is related to chemotherapy. Medical - H&P: PMH Medical history: Lung cancer, details of tumor unavailable at present; s/p right lobectomy. Chronic pleural effusion on right with drain placement. History of previous PE, chronically anticoagulated on warfarin. Arthritis of multiple sites (Chronic) Hemodialysis with AV fistula Osteoarthritis (Chronic) Microscopic hematuria (Chronic) Pericarditis - s/p pericardial window approx 05/2017 Diverticulitis of colon (Chronic) Depression (Chronic) History of blood transfusion (Chronic) Backache (Chronic) End stage kidney disease on hemodialysis felt to be related to hepatitis C infection. 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) Pain in right hip (Chronic) Sciatica (Chronic) Ventral hernia (Chronic) Past Surgical History AV fistula for hemodialysis - R upper extremity, September 2016 Status post excision of thyroid adenoma (Chronic) History of D&C (Chronic) History of cholecystectomy (Chronic) History of colonoscopy (Chronic) History of cystoscopy (Chronic) History of decompression of median nerve (Chronic) History of fusion of cervical spine (Chronic) History of hysterectomy (Chronic) History of repair of rotator cuff (Chronic) History of thyroidectomy (Chronic) History of tonsillectomy and adenoidectomy (Chronic) Status post biopsy of kidney (Chronic) Pertinent family history: Mother alive at age 74 Father at 72, h/o DM and CAD Sister age 41, breast CA, initial dx age 35 Brother with CAD Social history: Usually lives alone; her daughter (from [facility]) is staying with her right now and planning to move to [place] to help her mother with ongoing illness/needs.Quit smoking nearly 40 years ago - entire smoking history was limited to her early 20's. No alcohol use. 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 Code status discussed, confirmed patient desires full code at present time. Functional capacity: independent ambulation Smoking status: Former smoker Have you smoked in the last 12 months: No Drug use: none Alcohol use: none Medical - H&P: Meds Home Medications Medication Instructions Recorded Confirmed Type oxycodone 5 mg tablet 20 mg PO Q4H PRN 03/22/16 10/27/17 History calcium acetate 667 mg capsule 2,001 mg PO TID 30 Days #270 cap 10/17/16 Rx Amiodarone HCl [Cordarone] 200 mg PO QPM 04/28/17 10/27/17 History cholecalciferol (vitamin D3) 1,000 1,000 unit PO QDAY cap 07/26/17 10/27/17 History unit capsule ibuprofen 400 mg tablet 400 mg PO Q6H PRN tab 07/26/17 10/27/17 History metoclopramide 10 mg tablet 10 mg PO Q6H PRN tab 07/26/17 10/27/17 History Warfarin [Coumadin] 5 mg PO SUTUTHSA@1800 09/16/17 10/27/17 History Warfarin [Coumadin] 6 mg PO MOWEFR@1800 09/16/17 10/27/17 History carvedilol 6.25 mg tablet 6.25 mg PO BID #60 tab 10/08/17 10/27/17 Rx torsemide 20 mg tablet 40 mg PO QDAY #60 tab 10/08/17 10/27/17 Rx diltiazem 60 mg tablet 180 mg PO BID #180 tab 10/15/17 10/27/17 Rx Calcitriol [Rocaltrol] 1.5 mcg PO WEEKLY 10/27/17 10/27/17 History Dicyclomine [Bentyl] 10 mg PO Q4H PRN 10/27/17 10/27/17 History Allergies Allergy/AdvReac Type Severity Reaction Status Date / Time HANH Inhibitors Allergy Unknown dry Verified 04/11/17 12:27 nostrils, throat tickle latex Allergy Unknown unknown Verified 04/11/17 12:27 Sulfa (Sulfonamide Allergy Unknown unknown Verified 04/11/17 12:27 Antibiotics) Medical - H&P: Exam - Constitutional Vitals: Temp Pulse Resp BP Pulse Ox 100.3 F H 71 20 127/53 99 10/27/17 16:49 10/27/17 17:46 10/27/17 17:46 10/27/17 17:46 10/27/17 17:46 - Other Additional findings: GENERAL: Well groomed, unlabored respirations, in no acute distress. Answered all questions appropriately, cooperative. Speech coherent, fluent, articulate; oriented x 3. HEENT: Head atraumatic, normocephalic; EARS: TM's Pearly woodruff, translucent, EAC' s without trauma, auricles without lesions except for small angioma top of left. EYES: Pupils equal, FROM, no scleral icterus, no erythema or drainage. OROPHARYNX: Moist membranes, palate raises symmetrically, no posterior erythema. NECK: Trachea midline, no masses noted. No bruits, no JVD. LUNGS: Markedly diminished breath sounds over right chest wall both anterior and posterior. Clear to base on left. No wheeze or crackle noted. Diffuse dullness comparatively on right compared to left (clear to percussion). Drain in place right anterior chest wall, capped off at present. COR: Regular rate and rhythm, 1-6 early systolic murmur heard throughout precordium, most prominent right upper sternal border. ABDOMEN: Bowel sounds present, soft, non-distended, non-tender, no guarding or rebound. No masses appreciated. BACK: No vertebral tenderness, no CVA tenderness. No discomfort on palpation or percussion over right chest wall. EXTREMITIES: Lower extremities appear even more swollen than the 1-2+ pitting edema obtained with pressure. Non-pitting swelling noted. Hands likewise appear puffy. Ecchymosis over left knee she associates with fall on porch two weeks ago. AV fistula noted right upper arm with good thrill on palpation. NEURO: Moved all extremities equally, no tremor, silk screen repairer strength intact and equal. SKIN: Ecchymosis as noted, no epithelial disruption, no rash, no areas of erythema, swelling, or abrasion. Medical - H&P: Reslt - Labs CBC & Chem 7: 10/27/17 15:49 10/27/17 15:13 Labs: Short CBC 10/27/17 Range/Units 15:49 WBC 14.9 H (4.5-11.0) K/mcL Hgb 10.2 L (12.0-15.0) g/dL Hct 30.3 L (36.0-48.0) % Plt Count 285 (140-440) K/mcL BMP 10/27/17 15:13 Sodium 129 L Potassium 4.8 Chloride 84 L Carbon Dioxide 29 BUN 44 H Creatinine 4.8 H Glucose 89 Calcium 9.6 Liver Function 10/27/17 Range/Units 15:13 Total Bilirubin 0.3 (0.0-1.0) mg/dL AST 12 (0-37) U/l ALT 7 (0-40) U/l Alkaline Phosphatase 67 (39-117) U/L Albumin 4.0 (3.2-5.2) gm/dL - Imaging and Cardiology CT scan - chest Additional comments: Per Dr. Costello report: "There is extensive right lung consolidation. A well-defined discrete mass is not identified although a small focal mass could be inapparent on this study. Appearance is consistent with pneumonia." IMPRESSION: 1. Previous right lower lobectomy 2. Right-sided pleural fluid collections are unchanged since 09/18/2017. There is a pleural drainage catheter within the lower fluid collection. 3. No enhancing pleural based mass 4. Severe consolidation of the right lung. This is worse than on previous examination and is consistent with pneumonia 5. Calcified coronary artery disease 6. Previous cholecystectomy. Significant dilatation of the common hepatic duct and common bile duct. Findings are unchanged 7. Renal atrophy Medical - H&P: A/P - Narrative A/P Narrative: 1) Pneumonia - complex, right side dense consolidation. No CT evidence recurrence of mass after lobectomy. Given complexity of history, chronic pleural effusion with drain in situ, elevated white count, fevers, chills, history of ongoing chemotherapy, it is appropriate to admit for inpatient treatment. No increase in hypoxia noted, and Temp in ED at max was 100.3. No hemodynamic parameters to suggest sepsis, although I suspect she is at risk. Plan to admit for IV antibiotics. 2) Hyponatremia - was last checked a few days ago at 132. Now 129, no symptoms. May be related to pneumonia. Will recheck in AM. 3) Lung CA - ongoing chemotherapy at [facility]. s/p lobectomy. 4) ESKD - on hemodialysis with mature AV fistula. Potassium normal on admit. Discussed with Dr. Stewart, nephrology consult placed to assist with arranging / coordinating ongoing hemodialysis. Follow daily chemistries. 5) Chronic anticoagulation - due to report of previous history of PE. Subtherapeutic at present, certainly at high risk of recurrence. Will add SCD's , ask pharmacy to assist with dosing warfarin. 6) History of pericarditis - s/p window last winter. Echocardiogram 05/2017 showed preserved EF at 66%. No sign/symptoms decompensation at present. 7) Extremity edema - stable per patient. No further intervention at present. 8) Recent fall - obtain PT consult for gait evaluation 9) Chronic pleural effusion, pigtail catheter in place for drainage. Will continue current management with regular drainage. 10) Chronic pain - patient reports no issues at present; continue current medications, but will hold ibuprofen with current issues. Plan: 1) Inpatient admission - multiple underlying complex medical issues, anticipate at least 2 midnight stay. 2) Levaquin IV - will ask pharmacy to help with dosing given advance renal disease 3) Nephrology consult 4) Continue hemodialysis 5) Recheck sodium in AM 6) Has minimal urine production at baseline, will collect UA when available. 7) PT consult for gait 8) Incentive spirometry 9) O2 by nasal cannula 10) Prednisone for pneumonia 11) Daily INR, pharmacy to dose 12) SCD's for added prophylaxis 13) Full code per patient request 14) Renal diet 15) Other problems to be addressed as they arise. Time spent coordinating this admission including review of records, discussion with providers, patient, and daughter, was 70 minutes. In addition, underlying medical complexity is significant. Medical - H&P: Qual - VTE Deep Vein Thrombosis/Pulmonary Embolism Present on Admission: No
[2017-10-27] MEDS ORDERED: DICYCLOMINE 10 MG CAPSULE PO PRN (19:02)
[2017-10-27] MEDS ORDERED: METOCLOPRAMIDE 10 MG TABLET PO PRN (19:02)
[2017-10-27] MEDS ORDERED: ALBUTEROL SULFATE 2.5 MG/3 ML NEBULIZER NEB PRN (19:02)
[2017-10-27] MEDS ORDERED: ACETAMINOPHEN 325 MG TABLET PO PRN (19:02)
[2017-10-27] MEDS ORDERED: CALCIUM CARBONATE 500 MG TAB.CHEW CHEWED PRN (19:02)
[2017-10-27] MEDS ORDERED: oxyCODONE HCL 5 MG TABLET PO PRN (19:02)
--- NOTE | 2017-10-27 19:04 | Internal Med Progress Note ---
Medical - PN: Subj Patient information: Note initiated : 10/27/17 at 7:01 pm Service Date, if different from initiated Date: [] Patient: Stefany Chew 62 y/o F admitted on for Fever. Chief Complaint: [] - Constitutional Vitals: Vital Signs Temp Pulse Resp BP Pulse Ox 98.8 F 71 20 127/53 99 10/27/17 18:01 10/27/17 18:01 10/27/17 18:01 10/27/17 17:46 10/27/17 18:01 Period Temp Pulse Resp BP Sys/Redi Pulse Ox Last 24 Hr 98.8 F-100.3 F 69-78 18-29 121-158/49-71 94-100 Intake and Output 10/27/17 10/27/17 10/27/17 05:59 13:59 21:59 Weight 178 lb Patient Weight 10/28/17 05:59 Weight 178 lb Intake & Output: Intake & Output 10/27/17 10/27/17 10/27/17 05:59 13:59 21:59 Weight 178 lb Medical - PN: Obj Da - Labs CBC & Chem 7: 10/27/17 15:49 10/27/17 15:13 Labs: Abnormal Lab Results 10/27/17 10/27/17 10/27/17 15:49 15:49 15:13 WBC 14.9 H RBC 3.25 L Hgb 10.2 L Hct 30.3 L RDW 15.5 H Gran % 82.9 H Lymph % (Auto) 5.4 L Gran # 12.3 H Lymph # (Auto) 0.8 L Eos # (Auto) 0.9 H PT 15.8 H INR 1.3 H Sodium 129 L Chloride 84 L BUN 44 H Creatinine 4.8 H C-Reactive Protein 3.1 H Medical - PN: A/P - Time Spent With Patient Total time spent is greater than 50% in coordination of care (as documented) at patient's floor/unit and/or counseling patient: Medical - PN: Qual - VTE Deep Vein Thrombosis/Pulmonary Embolism Present on Admission: No
[2017-10-27] MEDS ORDERED: oxyCODONE HCL 5 MG TABLET PO ONE (20:56)
[2017-10-27] MEDS ORDERED: CALCIUM ACETATE 2001 MG PO SCH (21:00)
[2017-10-27] MEDS ORDERED: CARVEDILOL 6.25 MG TABLET PO SCH (21:00)
[2017-10-27 21:01] LABS: ALT/SGPT 6 U/l (0-40); Albumin 3.4 gm/dL (3.2-5.2); Albumin/Globulin Ratio 1.2 (1.0-2.3); Alkaline Phosphatase 57 U/L (39-117); Bilirubin,Direct < 0.2 mg/dL (0.0-0.3); Blood Urea Nitrogen 45 mg/dl (8-23); Gamma Glutamyl Transpeptidase 32 U/L (5-36); Uric Acid 4.8 mg/dL (2.5-8.0)
[2017-10-27] MEDS ORDERED: WARFARIN 5 MG TABLET PO ONE (21:30)
[2017-10-27] MEDS: DILTIAZEM 30 MG TABLET PO SCH (21:41)
[2017-10-27] MEDS: AMIODARONE HCL 200 MG TABLET PO SCH (21:41)
[2017-10-27] MEDS: 0.9 % SODIUM CHLORIDE 10 ML SYRINGE IV SCH (21:46)
[2017-10-28] MEDS: 0.9 % SODIUM CHLORIDE 10 ML SYRINGE IV SCH ×3 (05:33→22:00)
[2017-10-28] MEDS ORDERED: oxyCODONE HCL 5 MG TABLET PO ONE (05:33)
[2017-10-28 06:10] LABS: ALT/SGPT 6 U/l (0-40); Albumin 3.1 gm/dL (3.2-5.2); Albumin/Globulin Ratio 1.1 (1.0-2.3); Alkaline Phosphatase 55 U/L (39-117); Bilirubin,Direct < 0.2 mg/dL (0.0-0.3); Blood Urea Nitrogen 39 mg/dl (8-23); Gamma Glutamyl Transpeptidase 28 U/L (5-36); Uric Acid 5.4 mg/dL (2.5-8.0)
--- NOTE | 2017-10-28 07:37 | Nephrology Consult Note ---
History of Present Illness - Reason for Consult Patient information: Note initiated : 10/28/17 at 7:34 am Stefany Chew is a [id number] female presented to ED on 10/27/17 and admitted to [facility] for pneumonia. Consult date: 10/28/17 end stage renal disease Requesting physician: Debo Lemons - Chief Complaint Weakness - History of Present Illness Stefany Chew is a [id number] female with end stage renal disease on chronic hemodialysis (through right arm AV fistula, at [facility], on TTS, followed by Dr Saldivar ), chronic anemia due to chronic kidney disease, secondary hyperparathyroidism, coronary artery disease by calcifications on CT, history of pericardial effusion s/p pericardial window, chronic atrial fibrillation on Coumadin anticoagulation, hypertension, hyperlipidemia, chronic hypoxic respiratory failure (requiring 2 L/min continuous home oxygen) due to chronic obstructive pulmonary disease with tobacco dependence in remission, history of metastatic lung adenocarcinoma with right pleural metastasis and malignant right pleural effusion s/p robotic-assisted right lower lobectomy/mediastinal lymph node resection on 10/19/16 and 4 cycles of carboplatin/paclitaxel completed on 02/01/17 , presented to ED on 10/27/17 and admitted to [facility] for pneumonia. Review of Systems Constitutional: weakness Nose, mouth and throat: no nasal congestion, no sore throat Cardiovascular: leg edema, no chest pain Respiratory: cough, dyspnea on exertion Gastrointestinal: no abdominal pain Genitourinary: no dysuria Musculoskeletal: no back pain Integumentary: no rash Neurological: no focal weakness Psychiatric: no anxiety Endocrine: no heat intolerance Hematologic/Lymphatic: easy bruising Allergic/Immunologic: no uticaria Past History Past medical history: Medical History (Last Updated 05/11/17 @ 13:58 by Merly Stovall) Chills with fever (Chronic) Chills (without fever) (Chronic) Arthritis of multiple sites (Chronic) Acute bronchitis (Chronic) Osteoarthritis (Chronic) Microscopic hematuria (Chronic) Pericarditis (Chronic) Diverticulitis of colon (Chronic) Cardiac disorder (Chronic) Depression (Chronic) History of blood transfusion (Chronic) Backache (Chronic) Hepatitis B infection (Chronic) Allergic rhinitis (Chronic) Anemia (Chronic) Chronic hepatitis C (Chronic) Hypertension (Chronic) Hyperlipidemia (Chronic) Vitamin D deficiency (Chronic) Leg cramps (Chronic) Acute sinusitis (Chronic) Arthritis (Chronic) Blood loss anemia (Chronic) Cervicalgia (Chronic) Chest pain (Chronic) Chronic obstructive pulmonary disease (Chronic) Acute stress reaction (Chronic) Essential (primary) hypertension (Chronic) 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) Decreased renal function (Chronic) Viral hepatitis C without hepatic coma (Chronic) Lower abdominal pain (Chronic) Nostril infection (Chronic) Pain (Chronic) Pain in right hip (Chronic) Postmenopausal (Chronic) Right lower quadrant pain (Chronic) Sciatica (Chronic) Shortness of breath (Chronic) Skin pustule (Chronic) Symptomatic anemia (Chronic) Thyroid enlargement (Chronic) Tiredness (Chronic) Tubular adenoma of colon (Chronic) Ventral hernia (Chronic) Vertigo (Chronic) Chronic kidney disease, stage 4 (severe) (Chronic) History of proctoscopy (Chronic) Past surgical history: Past Surgical History Status post excision of thyroid adenoma (Chronic) History of D&C (Chronic) History of cholecystectomy (Chronic) History of colonoscopy (Chronic) History of cystoscopy (Chronic) History of decompression of median nerve (Chronic) History of fusion of cervical spine (Chronic) History of hysterectomy (Chronic) History of repair of rotator cuff (Chronic) History of thyroidectomy (Chronic) History of tonsillectomy and adenoidectomy (Chronic) Status post biopsy of kidney (Chronic) Past family history: Family History Unknown Skin cancer of nose Diabetes mellitus Pulmonary embolism Breast cancer CAD (coronary artery disease) Diabetes mellitus, type II Past social history: Lives alone. Her daughter (from [facility]) is staying with her right now and planning to move to [place] to help her mother. Quit smoking nearly 40 years ago. Medications and Allergies Home Medications Medication Instructions Recorded Confirmed Type oxycodone 5 mg tablet 20 mg PO Q4HP PRN 03/22/16 10/27/17 History calcium acetate 667 mg capsule 2,001 mg PO TID 30 Days #270 cap 10/17/16 Rx Amiodarone HCl [Cordarone] 200 mg PO QPM 04/28/17 10/27/17 History cholecalciferol (vitamin D3) 1,000 1,000 unit PO QDAY cap 07/26/17 10/27/17 History unit capsule ibuprofen 400 mg tablet 400 mg PO Q6HP PRN tab 07/26/17 10/27/17 History metoclopramide 10 mg tablet 10 mg PO Q6H PRN tab 07/26/17 10/27/17 History Warfarin [Coumadin] 5 mg PO SUTUTHSA@2100 09/16/17 10/27/17 History Warfarin [Coumadin] 6 mg PO MOWEFR@2100 09/16/17 10/27/17 History carvedilol 6.25 mg tablet 6.25 mg PO BID #60 tab 10/08/17 10/27/17 Rx diltiazem 60 mg tablet 180 mg PO BID #180 tab 10/15/17 10/27/17 Rx Acetaminophen [Pain Reliever] 500 mg PO QIDP PRN 10/27/17 10/27/17 History Calcitriol [Rocaltrol] 1.5 mcg PO WEEKLY 10/27/17 10/27/17 History Dicyclomine [Bentyl] 10 mg PO Q4HP PRN 10/27/17 10/27/17 History Nutritional Supplement [Novasource 237 ml PO TUTHSA@1500 10/27/17 10/27/17 History Renal] Prochlorperazine (Pp) [Compazine 10 mg PO Q6HP PRN 10/27/17 10/27/17 History (Pp)] Torsemide [Demadex] 20 mg PO BID 10/27/17 10/27/17 History Allergies Allergy/AdvReac Type Severity Reaction Status Date / Time HANH Inhibitors Allergy Intermediate dry Verified 10/27/17 19:27 nostrils, throat tickle latex Allergy Intermediate Hives Verified 10/27/17 19:27 Sulfa (Sulfonamide Allergy Intermediate Hives Verified 10/27/17 19:27 Antibiotics) Exam - Vital Signs Vital signs: Temp Pulse Resp BP Pulse Ox 97.5 F 60 16 110/53 98 10/28/17 07:08 10/28/17 03:53 10/28/17 07:08 10/28/17 07:08 10/28/17 07:08 - General Appearance General appearance: appears started age, frail EENT: mucous membranes moist Neck: supple Respiratory: course breath sounds Cardiology: edema Gastrointestinal: no tenderness Integumentary: warm and dry Neurologic: alert and oriented x3 Musculoskeletal: no erythema Psychiatric: mood/affect appropriate, cooperative Results - Lab Results 10/27/17 15:49 10/28/17 04:21 Most recent lab results Calcium 8.7 mg/dl (8.6-10.4) 10/28/17 04:21 Phosphorus 4.1 mg/dL (2.7-4.5) 10/28/17 04:21 Magnesium 2.0 mg/dL (1.6-2.5) 10/28/17 04:21 Assessment and Plan (1) Anemia due to end stage renal disease Hemodialysis today for 4 hours with 3-4 kg UF goal. Continue hemodialysis on TTS. The patient seen and evaluated during hemodialysis at 12:35. Status: Chronic Priority: Medium (2) ESRD (end stage renal disease) on dialysis Status: Chronic Priority: Medium (3) Hyponatremia Dialysis with Sodium 140 dialysate and 4 kg UF. Status: Acute
[2017-10-28] MEDS: CARVEDILOL 6.25 MG TABLET PO SCH ×2 (08:26→17:03)
[2017-10-28] MEDS: DILTIAZEM 30 MG TABLET PO SCH ×2 (08:27→20:31)
[2017-10-28] MEDS: CALCIUM ACETATE 667 MG CAPSULE PO SCH ×3 (08:27→17:03)
[2017-10-28] MEDS: TORSEMIDE 10 MG TABLET PO SCH (08:28)
[2017-10-28] MEDS: VITAMIN D3 1,000 UNIT TABLET PO SCH (08:28)
--- NOTE | 2017-10-28 10:02 | Internal Med Progress Note ---
Medical - PN: Subj Patient information: Note initiated : 10/28/17 at 9:56 am Patient: Stefany Chew a 62 y/o F admitted on 10/27/17 for pneumonia in setting of h/o lung CA, s/p lobectomy, chronic pleural effusion with drain. Chief Complaint: fevers and chills at presentation. Interval history: 10/27 - admitted with dx of pna, started IV Levaquin. Temp at time of admission 100.3. Hemodialysis patient who had missed dialysis earlier in day; creatinine high at 4.8, potassium normal, sodium minimally low. No increase in pleural drain output. INR subtherapeutic (h/o PE in distant past). 10/28: Today, patient states she feels better. No further fevers or chills. No nausea, ate breakfast without difficulty. This morning she asks whether this pneumonia could have caused some shoulder discomfort - and she notes that her right shoulder and upper chest / back / upper arm had been "just burning" for last few days. Pain had been steady, seems to be better today. Continues with peripheral edema (has developed since chemo). Has not yet been up walking, cough still non productive. No GI or bowel complaints. - Constitutional Vitals: Vital Signs Temp Pulse Resp BP Pulse Ox 97.5 F 60 16 110/53 98 10/28/17 07:08 10/28/17 03:53 10/28/17 07:08 10/28/17 07:08 10/28/17 07:08 Period Temp Pulse Resp BP Sys/Reid Pulse Ox Last 24 Hr 97.5 F-100.3 F 60-78 16-29 110-158/49-83 94-100 Intake and Output 10/27/17 10/28/17 10/28/17 21:59 05:59 13:59 Intake Total 1150 / 1150 350 / 350 560 / 560 Balance 1150 / 1150 350 / 350 560 / 560 Weight 178 lb Intake & Output: Intake & Output 10/27/17 10/28/17 10/28/17 21:59 05:59 13:59 Intake Total 1150 / 1150 350 / 350 560 / 560 Balance 1150 / 1150 350 / 350 560 / 560 Weight 178 lb Intake: IV 1150 / 1150 Sodium Chloride 0.9% 1,000 ml @ 1000 / 1000 Wide Open IV BOLUS ONE Rx#: [id number] Oral 350 / 350 560 / 560 Other: Meal Breakfast Percent of Meal Consumed 100% Feeding Ability Independent - Additional findings Additional findings: GENERAL: Awake, alert, appropriately groomed. Good eye contact, pleasant affect , speech coherent, fluent, articulate. HEENT: Oropharynx with moist membranes. No scleral icterus. NECK: Trachea midline, no masses. LUNGS: Still diminished on right, however, almost seems if better than yesterday. Good air entry to base on left. No wheezes or crackles. MUSCULOSKELETAL: Old surgical scar anterior right shoulder. Shoulder non- tender to palpation. No chest wall tenderness to palpation. EXTREMITIES: Edema 2+ bilateral lower extremities. Feet warm, difficult to find pulses. Radial pulses present, AV fistula R upper arm with thrill noted. ABDOMEN: Soft and non-tender Medical - PN: Obj Da - Labs CBC & Chem 7: 10/27/17 15:49 10/28/17 04:21 Labs: Abnormal Lab Results 10/28/17 10/28/17 10/27/17 04:21 04:21 19:38 WBC RBC Hgb Hct RDW Gran % Lymph % (Auto) Gran # Lymph # (Auto) Eos # (Auto) PT 18.8 H INR 1.6 H Sodium 128 L 128 L Chloride 88 L 86 L BUN 39 H 45 H Creatinine 5.8 H* 5.0 H C-Reactive Protein Total Protein 5.8 L Albumin 3.1 L 10/27/17 10/27/17 10/27/17 15:49 15:49 15:13 WBC 14.9 H RBC 3.25 L Hgb 10.2 L Hct 30.3 L RDW 15.5 H Gran % 82.9 H Lymph % (Auto) 5.4 L Gran # 12.3 H Lymph # (Auto) 0.8 L Eos # (Auto) 0.9 H PT 15.8 H INR 1.3 H Sodium 129 L Chloride 84 L BUN 44 H Creatinine 4.8 H C-Reactive Protein 3.1 H Total Protein Albumin Meds: Medications Acetaminophen (Tylenol) 650 mg PO Q6HP PRN PRN Reason: PAIN/FEVER > 101 Albuterol Sulfate (Ventolin) 2.5 mg NEB Q2HP PRN PRN Reason: Shortness Of Breath Amiodarone HCl (Cordarone) 200 mg PO QPM [facility] Last Admin: 10/27/17 21:41 Dose: 200 mg Calcitriol (Rocaltrol) 1.5 mcg PO WEEKLY [facility] Calcium Acetate (Phoslo) 2,001 mg PO TIDCC [facility] Last Admin: 10/28/17 08:27 Dose: 2,001 mg Calcium Carbonate/Glycine (Tums) 1,000 mg CHEWED Q4HP PRN PRN Reason: Dyspepsia Carvedilol (Coreg) 6.25 mg PO BIDCC [facility] Last Admin: 10/28/17 08:26 Dose: 6.25 mg Dicyclomine HCl (Bentyl) 10 mg PO Q4H PRN PRN Reason: Pain Last Admin: 10/28/17 05:32 Dose: 10 mg Diltiazem HCl (Cardizem) 180 mg PO BID [facility] Last Admin: 10/28/17 08:27 Dose: 180 mg Levofloxacin (Levaquin) 500 mg in 100 mls @ 100 mls/hr IV Q48H [facility] Metoclopramide HCl (Reglan) 10 mg PO Q6H PRN PRN Reason: Nausea Oxycodone HCl (Roxicodone) 20 mg PO Q4HP PRN PRN Reason: Pain Sodium Chloride (Saline Flush) 10 ml IV Q8 [facility] Last Admin: 10/28/17 05:33 Dose: 10 ml Torsemide (Demadex) 40 mg PO DAILY [facility] Last Admin: 10/28/17 08:28 Dose: 40 mg Vitamin D (Vitamin D3) 1,000 unit PO DAILY [facility] Last Admin: 10/28/17 08:28 Dose: 1,000 unit Warfarin Sodium (Coumadin Per Pharmacy) 1 order PO UD [facility] Medical - PN: A/P - Time Spent With Patient Total time spent is greater than 50% in coordination of care (as documented) at patient's floor/unit and/or counseling patient: less than 15 minutes - Narrative A/P Narrative: 1) Pneumonia - subjective improvement, white count decreasing. No fevers overnight. Will continue the Levaquin and incentive spirometry. 2) ESKD - hemodialysis planned for today, creatinine up from yesterday, but not unexpected. Potassium still normal, sodium slightly lower - possibly due to volume increase with missed dialysis. 3) Hyponatremia - 128 today, was 129 yesterday. Recheck tomorrow. Anticipate some correction with dialysis. 4) Chronic anticoagulation - subtherapeutic today, but moving in right direction. Continue coumadin per pharmacy and SCD's. Is on Coumadin chronically for h/o previous PE per records. 5) Shoulder pain - agree that most likely etiology is the pneumonia, particularly given timing and location of symptoms. Plan for today: Dialysis Continue Levaquin Coumadin this afternoon Labs tomorrow morning No other medication changes at present Encourage incentive spirometry. If doing well tomorrow, may be able to consider discharge with oral levaquin. Medical - PN: Qual - Stroke Symptom Onset Unknown: No - VTE Deep Vein Thrombosis/Pulmonary Embolism Present on Admission: No
[2017-10-28] MEDS: DICYCLOMINE 20 MG TABLET PO PRN ×3 (11:38→21:57)
[2017-10-28] MEDS ORDERED: WARFARIN 5 MG TABLET PO ONE (16:00)
[2017-10-28] MEDS: oxyCODONE HCL 5 MG TABLET PO PRN ×2 (17:09→21:57)
[2017-10-28] MEDS: AMIODARONE HCL 200 MG TABLET PO SCH (20:31)
[2017-10-29] MEDS: oxyCODONE HCL 5 MG TABLET PO PRN ×2 (02:41→08:03)
[2017-10-29] MEDS: DICYCLOMINE 20 MG TABLET PO PRN ×2 (02:41→08:02)
[2017-10-29] MEDS: 0.9 % SODIUM CHLORIDE 10 ML SYRINGE IV SCH (05:25)
--- NOTE | 2017-10-29 06:17 | Nephrology Progress Note ---
Subjective Patient information: Note initiated : 10/29/17 at 6:15 am Stefany Chew is a [id number] female with end stage renal disease on chronic hemodialysis (through right arm AV fistula, at [facility], on TTS, followed by Dr Saldivar ), chronic anemia due to chronic kidney disease, secondary hyperparathyroidism, coronary artery disease by calcifications on CT, history of pericardial effusion s/p pericardial window, chronic atrial fibrillation on Coumadin anticoagulation, hypertension, hyperlipidemia, chronic hypoxic respiratory failure (requiring 2 L/min continuous home oxygen) due to chronic obstructive pulmonary disease with tobacco dependence in remission, history 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 Chief Complaint: Weakness Principal diagnosis: End stage renal disease Interval history: Hemodialysis on 10/29/17 with 3 kg UF. Pertinent ROS: Feels better. Weakness. Baseline shortness of breath. Leg edema improved. Objective - Vital Signs Vital signs: Vital Signs Temp Pulse Pulse Resp BP BP Pulse Ox 10/29/17 04:00 97.8 F 60 16 120/55 99 10/28/17 23:33 98.4 F 60 18 116/66 92 10/28/17 19:15 98.0 F 72 18 110/66 100 10/28/17 16:30 97.3 F 80 143/72 10/28/17 16:15 68 143/64 10/28/17 16:00 62 138/65 10/28/17 15:45 71 122/65 10/28/17 15:30 67 125/68 10/28/17 15:15 61 133/59 10/28/17 15:00 62 126/56 10/28/17 14:45 61 130/54 10/28/17 14:30 58 L 127/59 10/28/17 14:15 59 L 128/63 10/28/17 14:00 58 L 134/62 10/28/17 13:45 58 L 128/63 10/28/17 13:30 59 L 138/62 10/28/17 13:20 62 16 98 10/28/17 13:15 61 131/64 10/28/17 13:00 59 L 126/59 10/28/17 12:45 58 L 126/57 10/28/17 12:30 97.8 F 50 L 129/66 10/28/17 12:00 97.9 F 16 125/58 99 10/28/17 07:08 97.5 F 16 110/53 98 Intake and Output 10/28/17 10/29/17 10/29/17 21:59 05:59 13:59 Intake Total 660 / 660 600 / 600 Output Total 3000 / 3000 Balance -2340 / -2340 600 / 600 Intake: Oral 660 / 660 600 / 600 Output: Hemodialysis UF 3000 / 3000 Other: Meal Dinner Percent of Meal Consumed 100% Weight 174 lb 8 oz Intake & Output: Intake & Output 10/28/17 10/29/17 10/29/17 21:59 05:59 13:59 Intake Total 660 / 660 600 / 600 Output Total 3000 / 3000 Balance -2340 / -2340 600 / 600 Weight 174 lb 8 oz Intake: Oral 660 / 660 600 / 600 Output: Hemodialysis UF 3000 / 3000 Other: Meal Dinner Percent of Meal Consumed 100% - General Appearance General appearance: chronically ill, frail EENT: mucous membranes moist Neck: supple Respiratory: course breath sounds (right side) Cardiology: edema (trace in legs) Gastrointestinal: no tenderness Integumentary: warm and dry Neurologic: no focal deficit, alert and oriented x3 Musculoskeletal: no erythema Psychiatric: mood/affect appropriate, cooperative - Lab 10/27/17 15:49 10/28/17 04:21 Most recent lab results Calcium 8.7 mg/dl (8.6-10.4) 10/28/17 04:21 Phosphorus 4.1 mg/dL (2.7-4.5) 10/28/17 04:21 Magnesium 2.0 mg/dL (1.6-2.5) 10/28/17 04:21 Assessment and Plan (1) ESRD (end stage renal disease) on dialysis Continue hemodialysis on TTS. Status: Chronic Priority: Medium (2) Anemia due to end stage renal disease Status: Chronic Priority: Medium (3) Hyponatremia Status: Acute
[2017-10-29 07:22] LABS: Appearance,Urine HAZY; Bacteria,Urine FEW /hpf (0); Bilirubin,Urine NEG (NEG); Color,Urine YELLOW; Glucose,Urine (UA) NEGATIVE (NEG); Leukocyte Esterase,Urine NEG /uL (NEG); Mucus,Urine FEW /hpf (0); Protein,Urine >=500 mg/dL (NEG); Specific Gravity,Urine 1.015 (1.000-1.035); Urine Blood 0.2 mg/dL (<0.03); Urine RBC 70 /hpf (0-1); Urine Squamous Epithelial Cell 3 /hpf (0-4); Urine Transitional Epi Cells < 1 /hpf (0-2); Urine WBC 8 /hpf (0-4); Urobilinogen,Urine NEG (NEG)
[2017-10-29] MEDS: CALCIUM ACETATE 667 MG CAPSULE PO SCH (07:55)
[2017-10-29] MEDS: CARVEDILOL 6.25 MG TABLET PO SCH (07:55)
[2017-10-29] MEDS: VITAMIN D3 1,000 UNIT TABLET PO SCH (07:56)
[2017-10-29] MEDS: TORSEMIDE 10 MG TABLET PO SCH (07:56)
[2017-10-29 07:58] LABS: ALT/SGPT 6 U/l (0-40); Albumin 3.2 gm/dL (3.2-5.2); Albumin/Globulin Ratio 1.1 (1.0-2.3); Alkaline Phosphatase 50 U/L (39-117); Bilirubin,Direct < 0.2 mg/dL (0.0-0.3); Blood Urea Nitrogen 23 mg/dl (8-23); Gamma Glutamyl Transpeptidase 24 U/L (5-36); Uric Acid 2.8 mg/dL (2.5-8.0)
[2017-10-29] MEDS: DILTIAZEM 30 MG TABLET PO SCH (08:02)
[2017-10-29 08:57] LABS: Basophils # (Auto) 0 K/mcL (0.0-0.3); Basophils % (Auto) 0.5 % (0.0-2.0); Eosinophils # (Auto) 0.6 K/mcL (0.0-0.7); Eosinophils % (Auto) 8.7 % (0.0-7.0); Granulocytes % (Auto) 68.4 % (38.0-78.0); Lymphocytes # (Auto) 0.7 K/mcL (1.5-4.8); Mean Cell Volume 95.1 fL (80.0-100.0); Mean Corpuscular HGB Conc 33.5 g/dL (31.0-36.0); Mean Corpuscular Hemoglobin 31.9 pg (26.0-34.0); Monocytes # (Auto) 0.9 K/mcL (0.1-0.9); Monocytes % (Auto) 12.4 % (1.0-12.0); Platelet Count 196 K/mcL (140-440); RBC 2.48 M/mcL (4.00-5.20); Red Cell Distribution Width 15.6 % (11.5-14.5)
[2017-10-29] MEDS ORDERED: LEVOFLOXACIN 500 MG/100 ML BAG IV SCH (09:00)
--- NOTE | 2017-10-29 10:40 | Discharge Summary ---
Medical - DS: Prov Patient information: Note initiated : 10/29/17 at 10:36 am Patient: Stefany Chew a 62 y/o F admitted on 10/27/17 for Fever, evaluation disclosed right pneumonia in setting of previous lobectomy for adenocarcinoma, pleural metastasis and chronic right malignant effusion. Date of admission: 10/27/17 19:01 Discharge date: 10/29/17 Primary care physician: Jazmyn Lindsay Admitting clinician: Debo Lemons Attending physician on admission: Debo Lemons Consults: 10/27/17 16:59 Consult to Physician [CONS] Stat Comment: Consulting Provider: Debo Lemons Reason For Exam: Physician to Consult 10/27/17 17:18 Consult to Physician [CONS] Stat Comment: Consulting Provider: Jean Stewart Reason For Exam: Physician to Consult 10/27/17 19:02 Consult to Physician [CONS] Stat Comment: Hemodialysis needs; h/o ESKD d/t Hepatitis C Consulting Provider: Jean Stewart Reason For Exam: Physician to Consult Attending physician on discharge: Debo Lemons Medical - DS: Meds - Discharge Medications Prescriptions: Albuterol Sulfate [Ventolin] 2.5 mg NEB Q2HP PRN #1 ampul.neb PRN Reason: Shortness Of Breath Levofloxacin [Levaquin] 500 mg PO Q48H #3 tab Active and Home Medications: Home Medications oxycodone 5 mg tablet 20 mg PO Q4HP PRN 03/22/16 [History Confirmed 10/27/17 Last Taken 10/27/17 12:00] calcium acetate 667 mg capsule 2,001 mg PO TID 30 Days #270 cap 10/17/16 [Rx Confirmed 10/27/17 Last Taken 10/26/17 08:00] Amiodarone HCl [Cordarone] 200 mg PO QPM 04/28/17 [History Confirmed 10/27/17 Last Taken 10/26/17 21:00] cholecalciferol (vitamin D3) 1,000 unit capsule 1,000 unit PO QDAY cap [History Confirmed 10/27/17 Last Taken 10/25/17 08:00] ibuprofen 400 mg tablet 400 mg PO Q6HP PRN tab 07/26/17 [History Confirmed Last Taken 10/25/17 08:00] metoclopramide 10 mg tablet 10 mg PO Q6H PRN tab 07/26/17 [History Confirmed Last Taken 09/12/17] Warfarin [Coumadin] 5 mg PO SUTUTHSA@2100 09/16/17 [History Confirmed 10/27/17 Last Taken 10/25/17 21:00] Warfarin [Coumadin] 6 mg PO MOWEFR@2100 09/16/17 [History Confirmed 10/27/17 Last Taken 10/26/17 21:00] carvedilol 6.25 mg tablet 6.25 mg PO BID #60 tab 10/08/17 [Rx Confirmed Last Taken 10/27/17 08:00] diltiazem 60 mg tablet 180 mg PO BID #180 tab 10/15/17 [Rx Confirmed 10/27/17 Last Taken 10/27/17 08:00] Acetaminophen [Pain Reliever] 500 mg PO QIDP PRN 10/27/17 [History Confirmed Last Taken 10/25/17 08:00] Calcitriol [Rocaltrol] 1.5 mcg PO WEEKLY 10/27/17 [History Confirmed 10/27/17 Last Taken 10/20/17 15:00] Dicyclomine [Bentyl] 10 mg PO Q4HP PRN 10/27/17 [History Confirmed 10/27/17 Last Taken 10/27/17 19:00] Nutritional Supplement [Novasource Renal] 237 ml PO TUTHSA@1500 10/27/17 [ History Confirmed 10/27/17 Last Taken 10/25/17 15:00] Prochlorperazine (Pp) [Compazine (Pp)] 10 mg PO Q6HP PRN 10/27/17 [History Confirmed 10/27/17 Last Taken 10/27/17 12:00] Torsemide [Demadex] 20 mg PO BID 10/27/17 [History Confirmed 10/27/17 Last Taken 10/27/17 08:00] Albuterol Sulfate [Ventolin] 2.5 mg NEB Q2HP PRN #1 ampul.neb 10/29/17 [Rx Last Taken Unknown] Levofloxacin [Levaquin] 500 mg PO Q48H #3 tab 10/29/17 [Rx Last Taken Unknown] Medical - DS: Hosp Hospital course: Mr. Chew is a 62 year old F admitted 10/27/17 for right sided pneumonia. 10/27: Ms. Chew is a 62 year old F with dx of lung CA, found incidentally on routine chest Xray last . Treated with lobectomy, followed by oncology at [facility]. Has completed chemotherapy per Dr. Stewart's note. Has chronic right malignant pleural effusion for which a pigtail drain has been placed and she drains it every day to every other day. Drainage has remained unchanged. She felt well yesterday when she went to bed - and, in fact, notes that she had "a very good day" overall. At 4 AM, she was wakened from sleep with shaking chills - "just couldn't get warm", she fell back to sleep under blankets and slept most of the morning. She missed dialysis (she dialyzes q , , Sat), this afternoon due to feeling of weakness and generalized malaise. Her daughter then insisted she come to the ED. She states really only a minimal cough, and no sputum production even with that. No change in chest discomfort or in breathing. Chronically on 2 liters O2 at home. No chronic inhalers per patient. Nausea and anorexia today, but no vomiting. Is up to date with respiratory immunizations. At baseline, makes very little urine, and has not noticed any changes with that. Evaluation in ED showed near white-out of right chest on imaging, and chest CT showed complex pneumonia in the setting of lung cancer. Previous history of distant PE; has been chronically anticoagulated on coumadin, no PE on study even though subtherapeutic INR at present. She was started on IV Levaquin, continued on hemodialysis, monitor INR's. Mild hyponatremia was noted that was felt related to extra volume after missing dialysis. Temp at time of admission 100.3. Hemodialysis patient who had missed dialysis earlier in day; creatinine high at 4.8, potassium normal, sodium minimally low. No increase in pleural drain output. INR subtherapeutic (although initial information had suggested distant history of PE, patient reflects distant history of intermittent afib which has not recurred since she has been on amiodarone) 10/28: [place] much improved, afebrile overnight with improved respirations. Hemodialysis provided per nephrology. No further fevers or chills. No nausea, ate breakfast without difficulty. This morning she asks whether this pneumonia could have caused some shoulder discomfort - and she notes that her right shoulder and upper chest / back / upper arm had been "just burning" for last few days. Pain had been steady, seems to be better today. Continues with peripheral edema (has developed since chemo). Has not yet been up walking, cough still non productive. No GI or bowel complaints. 10/29: White count normalized, has been afebrile. Received dose of IV Levaquin this AM (500 mg per discussion with pharmacy). States improved peripheral edema with SCD's. Sodium normal after dialysis yesterday. Cultures thus far negative. Plan to discharge home with oral levaquin to complete a 10-day course. Discharge diagnosis: Right side pneumonia; chronic pleural effusion; chronic anticoagulation Secondary discharge diagnosis: End stage kidney disease on dialysis Hyponatremia - resolved History of atrial fibrillation - paroxysmal History of adenocarcinoma of right lung, s/p lobectomy Chronic peripheral edema sequelae of chemotherapy. Subtherapeutic INR Pertinent studies/significant findings: Final report on blood cultures pending; negative at time of discharge. - Time Spent with Patient Total time spent providing and/or coordinating discharge services: Greater than 30 minutes Medical - DS: Exam - Constitutional Vitals: Vital Signs Temp Pulse Pulse Resp BP BP Pulse Ox 10/29/17 07:12 97.7 F 16 124/67 100 10/29/17 06:52 99 10/29/17 04:00 97.8 F 60 16 120/55 99 10/28/17 23:33 98.4 F 60 18 116/66 92 10/28/17 19:15 98.0 F 72 18 110/66 100 10/28/17 16:30 97.3 F 80 143/72 10/28/17 16:15 68 143/64 10/28/17 16:00 62 138/65 10/28/17 15:45 71 122/65 10/28/17 15:30 67 125/68 10/28/17 15:15 61 133/59 10/28/17 15:00 62 126/56 10/28/17 14:45 61 130/54 10/28/17 14:30 58 L 127/59 10/28/17 14:15 59 L 128/63 10/28/17 14:00 58 L 134/62 10/28/17 13:45 58 L 128/63 10/28/17 13:30 59 L 138/62 10/28/17 13:20 62 16 98 10/28/17 13:15 61 131/64 10/28/17 13:00 59 L 126/59 10/28/17 12:45 58 L 126/57 10/28/17 12:30 97.8 F 50 L 129/66 10/28/17 12:00 97.9 F 16 125/58 99 Intake and Output 10/28/17 10/29/17 10/29/17 21:59 05:59 13:59 Intake Total 660 / 660 600 / 600 360 / 360 Output Total 3000 / 3000 50 / 50 Balance -2340 / -2340 600 / 600 310 / 310 Intake: Oral 660 / 660 600 / 600 360 / 360 Output: Void Amount 50 / 50 Hemodialysis UF 3000 / 3000 Other: Meal Dinner Breakfast Percent of Meal Consumed 100% 100% Feeding Ability Independent Weight 174 lb 8 oz - Other Additional findings: DISCHARGE PHYSICAL EXAM: GENERAL: Awake, alert, appropriately groomed. Good eye contact, pleasant affect , speech coherent, fluent, articulate. Has been up walking. HEENT: Oropharynx with moist membranes. No scleral icterus. NECK: Trachea midline, no masses. LUNGS: Still diminished on right, but air entry appreciated to right base. Good air entry to base on left. No wheezes or crackles. ABDOMEN: Soft, non-tender throughout. EXTREMITIES: Edema 1+-2+ bilateral lower extremities. Feet warm, difficult to find pulses. Radial pulses present, AV fistula R upper arm with thrill noted. Medical - DS: Data Labs on day of discharge: Labs from last 24 hours 10/29/17 10/29/17 10/29/17 06:41 04:33 04:33 WBC 7.2 RBC 2.48 L Hgb 7.9 L Hct 23.6 L MCV 95.1 MCH 31.9 MCHC 33.5 RDW 15.6 H Plt Count 196 MPV 8.0 Gran % 68.4 Lymph % (Auto) 10.0 L [place] % (Auto) 12.4 H Eos % (Auto) 8.7 H Baso % (Auto) 0.5 Gran # 4.9 Lymph # (Auto) 0.7 L [place] # (Auto) 0.9 Eos # (Auto) 0.6 Baso # (Auto) 0 PT INR Sodium 133 Potassium 4.4 Chloride 90 L Carbon Dioxide 30 Anion Gap 13.0 BUN 23 Creatinine 3.5 H GFR Calculation 13 Glucose 95 Uric Acid 2.8 Calcium 8.8 Phosphorus 2.7 Magnesium 2.0 Total Bilirubin 0.2 Direct Bilirubin < 0.2 GGT 24 AST 8 ALT 6 Alkaline Phosphatase 50 Lactate Dehydrogenase 169 Total Protein 6.0 Albumin 3.2 Globulin 2.8 Albumin/Globulin Ratio 1.1 Triglycerides 124 Urine Color Yellow Urine Appearance Hazy Urine pH 6.0 Ur Specific [place] 1.015 Urine Protein >=500 A Urine Glucose (UA) Negative Urine Ketones Neg Urine Occult Blood 0.2 A Urine Nitrate Neg Urine Bilirubin Neg Urine Urobilinogen Neg Ur Leukocyte Esterase Neg Urine RBC 70 H Urine WBC 8 H Ur Squamous Epith Cells 3 Ur Transition Epith Cell < 1 Urine Bacteria Few A Urine Mucus Few Ur Culture Indicated? Yes 10/29/17 04:33 WBC RBC Hgb Hct MCV MCH MCHC RDW Plt Count MPV Gran % Lymph % (Auto) [place] % (Auto) Eos % (Auto) Baso % (Auto) Gran # Lymph # (Auto) [place] # (Auto) Eos # (Auto) Baso # (Auto) PT 17.4 H INR 1.4 H Sodium Potassium Chloride Carbon Dioxide Anion Gap BUN Creatinine GFR Calculation Glucose Uric Acid Calcium Phosphorus Magnesium Total Bilirubin Direct Bilirubin GGT AST ALT Alkaline Phosphatase Lactate Dehydrogenase Total Protein Albumin Globulin Albumin/Globulin Ratio Triglycerides Urine Color Urine Appearance Urine pH Ur Specific [place] Urine Protein Urine Glucose (UA) Urine Ketones Urine Occult Blood Urine Nitrate Urine Bilirubin Urine Urobilinogen Ur Leukocyte Esterase Urine RBC Urine WBC Ur Squamous Epith Cells Ur Transition Epith Cell Urine Bacteria Urine Mucus Ur Culture Indicated? Preliminary micro results at discharge 10/27/17 16:15 Blood Culture - Preliminary Blood 10/27/17 16:10 Blood Culture - Preliminary Blood Medical - DS: A/P - Patient/Caregiver Discharge Instructions Activity: increase activity as tolerated Diet: Renal Additional Instructions: Dialysis dependent, manager lean following Continue dialysis on Sunday, , Sunday. INR to be check Sunday with your primary provider. Goal is 2.0-2.5 Return if further fevers, chills, or new symptoms. Prescriptions: Albuterol Sulfate [Ventolin] 2.5 mg NEB Q2HP PRN #1 ampul.neb PRN Reason: Shortness Of Breath Levofloxacin [Levaquin] 500 mg PO Q48H #3 tab - Follow up Plan Follow up with: Jazmyn Lindsay MD [Primary Care Provider] - 10/31/17 Disposition: Home, Self-Care Prognosis: Fair Rehab Potential: Good Overall status at discharge: patient is progressing back to baseline Medical - DS: Qual - VTE Deep Vein Thrombosis/Pulmonary Embolism Present on Admission: No
[2017-10-30] MEDS ORDERED: CALCITRIOL 0.25 MCG CAPSULE PO SCH (09:00)
== END 2017-10-29 12:12 | disposition home or self-care (01) | DRG 193 ==
LOC: ED 14:45 → MEDSUR 19:01
PROVIDERS: ADMIT Family Medicine; ATTEND Family Medicine